=== PATIENT | female | born 1995 | race Caucasian/White ===

== ENCOUNTER 2022-05-16 14:45 | Inpatient (IN) ==
[2022-05-16] MEDS ORDERED: LIDOCAINE 1% LOCAL 20 ML VIAL INFIL PRN (16:22)
[2022-05-16] MEDS ORDERED: OXYTOCIN 30 UNITS/500 ML BAG IV PRN (16:22)
[2022-05-16] MEDS ORDERED: DINOPROSTONE 10 MG INSERT PV ONE (16:22)
[2022-05-16 16:59] LABS: Hematocrit (blood only) 39.9 % (37.0-47.0); Mean Corpuscular Hemoglobin 28.3 pg (25.0-34.0); Mean Corpuscular Hgb Conc 32.6 g/dL (32.0-36.0); Mean Corpuscular Volume 86.9 fL (80.0-100.0); Mean Platelet Volume 13.4 fL (9.4-12.4); Platelet Count 163 K/uL (130-400); RDW Coefficient of Variation 14.1 % (11.5-14.5); RDW Standard Deviation 43.9 fL (36.4-46.3); Red Blood Count 4.59 M/uL (4.20-5.40); White Blood Count 6.81 K/ul (4.8-10.8)
--- NOTE | 2022-05-16 20:08 | Obstetrical Progress Note ---
Date of Service May 16, 2022 Assessment & Plan (1) cardiac anomaly affecting , antepartum: Plan: 27 yo s/p IVF @ 39 +weeks s/p cardia anomaly- Perimembranous VSD- sen by MARLA NST done in office today showed ?decel Sent to L&D for induction On arrival NST is CAT1 Discussed induction with - Pt agrees VE: /-3 Cervidil placed Admission and Anticipated Discharge Date Admission Date: May 16, 2022 Results & Data ([facility]) Vital Signs (Past 12 Hours) Vital Signs Temp Pulse Resp BP 05/16/22 19:34 62 05/16/22 19:34 139/89 05/16/22 18:34 18 05/16/22 18:34 36.8 C 18 05/16/22 18:34 55 L 05/16/22 18:34 129/88 05/16/22 15:06 36.9 C 71 18 109/68 05/16/22 15:09 36.9 C 19
[2022-05-17] MEDS ORDERED: OXYTOCIN 30 UNITS/500 ML BAG IV PRN (09:22)
--- NOTE | 2022-05-17 09:25 | Labor Progress Brief Note ---
Date of Service May 17, 2022 Subjective Patient comfortable in bed at this time. She was able to eat breakfast and shower. No complaint Assessment & Plan (1) cardiac anomaly affecting , antepartum: Plan: Perimembranous VSD- kristin by MFM f/u with peds after delivery (2) 39 weeks gestation of : Plan: Cervidil had been removed, she is 2 cm dilated. Gio every 2 to 5 minutes, will start oxytocin for augmentation Epidural patient request Anticipate spontaneous vaginal delivery (3) resulting from in-vitro fertilization: Admission and Anticipated Discharge Date Admission Date: May 16, 2022 Physical Exam Genitourinary: heart tracing: Baseline 04/17/1936, moderate variability, positive accelerations, no decelerations, category 1 tracing Tocometer: Every 2 to 5 minutes Cervix: 2/50/-2 Results & Data ([facility]) Vital Signs (Past 12 Hours) Vital Signs Temp Pulse Resp BP 05/17/22 09:01 68 120/77 05/17/22 07:09 36.7 C 60 20 122/81 05/17/22 03:03 20 05/17/22 03:03 36.9 C 20 05/17/22 03:02 46 L 114/83 05/16/22 22:05 69 05/16/22 22:05 125/88
[2022-05-17] MEDS: LACTATED RINGER'S 1,000 ML IV PRN ×2 (09:52→14:26)
--- NOTE | 2022-05-17 13:43 | Labor Progress Brief Note ---
Date of Service May 17, 2022 Subjective Patient comfortable on birthing ball at this time. Is agreeable to rupture of membranes. Assessment & Plan (1) cardiac anomaly affecting , antepartum: Plan: Perimembranous VSD- kristin by MFM f/u with peds after delivery (2) 39 weeks gestation of : Plan: Continue oxytocin for augmentation Epidural patient request Anticipate spontaneous vaginal delivery (3) resulting from in-vitro fertilization: Admission and Anticipated Discharge Date Admission Date: May 16, 2022 Physical Exam Genitourinary: heart tracing: Baseline 130, moderate variability, positive accelerations, no decelerations, category 1 tracing Tocometer: Contractions every 3 to 4 minutes oxytocin at 16 milliunits/h Cervix 460/-1, AROM performed with large amount of clear fluid, no cord felt, no complications, IUPC was placed Results & Data ([facility]) Vital Signs (Past 12 Hours) Vital Signs Temp Pulse Resp BP 05/17/22 13:01 54 L 118/71 05/17/22 12:01 61 119/78 05/17/22 11:01 36.7 C 61 18 121/87 05/17/22 10:01 69 124/85 05/17/22 09:01 68 120/77 05/17/22 07:09 36.7 C 60 20 122/81 05/17/22 03:03 20 05/17/22 03:03 36.9 C 20 05/17/22 03:02 46 L 114/83
[2022-05-17] MEDS ORDERED: SODIUM CHLORIDE 0.9% PF INJ 10 ML VIAL ONE (14:12)
[2022-05-17] MEDS ORDERED: ePHEDrine sulfate 50 MG/ML AMP ONE (14:12)
[2022-05-17] MEDS ORDERED: LIDOCAINE 2%/EPINEPHRINE 1:200,000 20 ML PF ONE (14:12)
[2022-05-17] MEDS ORDERED: fentaNYL citrate PF 100 MCG/2 ML VIAL ONE ×2 (14:12→19:14)
[2022-05-17] MEDS ORDERED: BUPIVACAINE 0.25% PF 30 ML VIAL ONE (14:12)
[2022-05-17] MEDS ORDERED: fentaNYL 2MCG/ML ROPIVACAINE 1.25MG/ML 100 ML BAG EPI ONE (14:13)
[2022-05-17] MEDS ORDERED: ePHEDrine sulfate 50 MG/ML AMP IV PRN (14:18)
[2022-05-17] MEDS ORDERED: NALOXONE HCL 0.4 MG/1 ML VIAL/CARP IV PRN (14:18)
[2022-05-17] MEDS ORDERED: fentaNYL 2MCG/ML ROPIVACAINE 1.25MG/ML 100 ML BAG EPI PRN (14:18)
[2022-05-17] MEDS ORDERED: NALBUPHINE HCL INJ 10 MG/ML AMP IV PRN (14:18)
[2022-05-17] MEDS ORDERED: ONDANSETRON INJ 2 MG/ML 2 ML VIAL IV PRN (14:18)
[2022-05-17] MEDS ORDERED: NALOXONE HCL 1 MG in SODIUM CHLORIDE 0.9% 1000ML 1,000 ML IV PRN (14:18)
[2022-05-17] MEDS ORDERED: diphenhydrAMINE 50 MG/ML VIAL IV PRN (14:18)
--- NOTE | 2022-05-17 14:23 | Anesthesiology Consultation ---
Date of Service May 17, 2022 Assessment & Plan Chart Review Chart Review: Acceptable Risk for Labor Epidural Consults Requested none ASA ASA2 Proposed Anesthesia Anesthesia Type: Labor Epidural Risk / Benefits Reviewed With: PT / POA / Parent / Guardian, Accepts Plan and Informed Consent Obtained History Height/Weight Height: 5 ft 4 in Weight: 78.744 kg Allergies Allergy/AdvReac Type Severity Reaction Status Date / Time No Known Drug Allergies Allergy Verified 04/01/19 13:51 Medications Home Medications Medication Instructions Recorded Confirmed Last Taken [id number] fum-folic [id number] 1 tab PO DAILY 12/12/18 05/17/22 05/16/22 08:00 [Daily ] Active Medications Generic Name Dose Route Start Last Admin Trade Name Freq PRN Reason Stop Dose Admin Lactated Ringer's 1,000 mls @ 125 mls/hr 05/16/22 16:22 05/17/22 14:04 Lr IV 05/18/22 16:21 999 mls/hr .Q8H PRN Infusion L&D Protocol Protocol Oxytocin 30 units in 500 mls @ 14 mls/hr 05/17/22 09:22 05/17/22 13:00 Pitocin IV 05/19/22 09:21 0.84 units/hr .Q24H PRN 14 mls/hr Labor Induction/Augmentation Titration Protocol 0.84 UNITS/HR Past Medical History Medical History History of varicella vaccination Exercise / Class Metabolic Activity II 4-5 Yardwork/Stairs/Walk up hill Past Family History Family History Mother , 04/2011 at age 49 Breast cancer, Onset Age: 42 negative BRCA genes Aunt Breast cancer maternal great aunt Grandmother (Maternal) Breast cancer maternal great grandmother Denies family history of Ovarian cancer Prostate cancer Myocardial infarction Colorectal cancer Past Surgical History Surgical History H/O dilation and curettage History of hysterosalpingogram History of hysteroscopy [place] teeth removed Past Anesthesia History No Hx of Anesthesia Complications and No Family Hx of Anesthesia Complications History of PONV No Hx of PONV and No Hx of Motion Sickness Social History Smoking Status: Never smoker Hx Alcohol Use: Yes Hx Substance Use: No Physical Exam Vital Signs Last Vital Signs Temp 98.1 F 05/17/22 11:01 Pulse 63 05/17/22 14:17 Resp 18 05/17/22 11:01 BP 118/71 05/17/22 13:01 Pulse Ox 95 05/17/22 14:17 ENMT Mouth: no dentition abnormality Thyromental Distance: > or= 3.5 Finger Breadths Mallampati Class: II Neck normal visual inspection Respiratory normal respiratory effort Auscultation: lungs clear to auscultation bilaterally Cardiovascular Rate/Rhythm: regular rate and regular rhythm Testing Laboratory Results 05/16/22 16:33
--- NOTE | 2022-05-17 16:48 | Labor Progress Brief Note ---
Date of Service May 17, 2022 Subjective Patient comfortable on epidural at this time, notes increasing pelvic pressure Assessment & Plan (1) cardiac anomaly affecting , antepartum: Plan: Perimembranous VSD- seen by MFM f/u with peds after delivery (2) 39 weeks gestation of : Plan: Start pushing with patient Anticipate spontaneous vaginal delivery (3) resulting from in-vitro fertilization: Admission and Anticipated Discharge Date Admission Date: May 16, 2022 Physical Exam Genitourinary: heart tracing: Baseline 20, moderate variability, positive accelerations, early decelerations Tocometer: Contractions every 2 minutes, oxytocin at 14 milliunits/h Cervix: 10/100/+2 station Results & Data ([facility]) Vital Signs (Past 12 Hours) Vital Signs Temp Pulse Resp BP Pulse Ox 05/17/22 16:42 65 100 05/17/22 16:41 68 89 L 05/17/22 16:37 62 91 05/17/22 16:32 94 05/17/22 16:32 53 L 05/17/22 16:32 52 L 118/69 05/17/22 16:27 51 L 94 05/17/22 16:26 63 89 L 05/17/22 16:22 60 94 05/17/22 16:18 57 L 132/66 05/17/22 16:17 63 94 05/17/22 16:15 71 90 05/17/22 16:12 54 L 95 05/17/22 16:07 64 94 05/17/22 16:02 54 L 95 05/17/22 16:03 52 L 133/83 05/17/22 15:57 59 L 93 05/17/22 15:52 51 L 95 05/17/22 15:48 52 L 137/82 05/17/22 15:47 60 96 05/17/22 15:42 53 L 95 05/17/22 15:37 59 L 98 05/17/22 15:32 53 L 137/83 95 05/17/22 15:27 60 97 05/17/22 15:22 62 95 05/17/22 15:17 62 119/78 93 05/17/22 15:12 60 96 05/17/22 15:07 59 L 96 05/17/22 15:02 57 L 95 05/17/22 14:58 58 L 124/85 05/17/22 14:57 60 96 05/17/22 14:54 58 L 122/81 05/17/22 14:52 62 95 05/17/22 14:49 63 126/80 05/17/22 14:47 90 96 05/17/22 14:42 97 05/17/22 14:42 66 05/17/22 14:42 62 127/81 05/17/22 14:40 65 134/76 05/17/22 14:38 68 138/85 05/17/22 14:37 63 95 05/17/22 14:36 68 133/76 05/17/22 14:34 58 L 128/73 05/17/22 14:32 72 135/95 96 05/17/22 14:27 68 96 05/17/22 14:22 75 92 05/17/22 14:17 63 95 05/17/22 14:16 66 85 L 05/17/22 14:12 65 95 05/17/22 14:08 69 92 05/17/22 14:07 63 96 05/17/22 13:01 54 L 118/71 05/17/22 12:01 61 119/78 05/17/22 11:01 36.7 C 61 18 121/87 05/17/22 10:01 69 124/85 05/17/22 09:01 68 120/77 05/17/22 07:09 36.7 C 60 20 122/81
[2022-05-17] MEDS ORDERED: SODIUM CHLORIDE 0.9% 250 ML IV PRN (18:51)
[2022-05-17] MEDS ORDERED: ceFAZolin 2000MG 2,000 MG/15 ML SYR IV STA (18:53)
[2022-05-17] MEDS ORDERED: SUCCINYLCHOLINE CHLORIDE 20 MG/ML 10 ML VIAL IV ONE (19:14)
[2022-05-17] MEDS ORDERED: LIDOCAINE 2% MPF LOCAL 5 ML VIAL INFIL ONE (19:14)
[2022-05-17] MEDS ORDERED: PROPOFOL IV EMULSION 10 MG/ML 20 ML VIAL IV ONE (19:14)
[2022-05-17] MEDS ORDERED: OXYTOCIN 10 UNITS/ML 10ML VIAL ONE ×2 (19:38→20:50)
[2022-05-17] MEDS ORDERED: ROCURONIUM BROMIDE 10 MG/ML 5 ML VIAL IV ONE (20:13)
[2022-05-17] MEDS ORDERED: ceFAZolin 330 MG/ML 1 GM VIAL ONE (20:19)
[2022-05-17 20:24] LABS: Hemoglobin 10.8 g/dl (12.0-16.0); Mean Corpuscular Hemoglobin 28.1 pg (25.0-34.0); Mean Corpuscular Hgb Conc 32.7 g/dL (32.0-36.0); Mean Corpuscular Volume 85.9 fL (80.0-100.0); Mean Platelet Volume 13.3 fL (9.4-12.4); Platelet Count 150 K/uL (130-400); RDW Standard Deviation 43.7 fL (36.4-46.3); Red Blood Count 3.84 M/uL (4.20-5.40); White Blood Count 22.87 K/ul (4.8-10.8)
[2022-05-17] MEDS ORDERED: PHENYLEPHRINE HCL 10 MG/ML VIAL ONE (20:35)
[2022-05-17] MEDS ORDERED: SUGAMMADEX SODIUM 200 MG/2 ML VIAL IV ONE (20:40)
[2022-05-17 20:45] LABS: Basophils # (auto) 0.04 K/uL (0-0.2); Basophils % (auto) 0.2 %; Eosinophils # (auto) 0.01 K/uL (0-0.50); Immature Granulocytes # (auto) 0.09 K/uL (0.01-0.20); Immature Granulocytes % (auto) 0.4 %; Lymphocytes # (auto) 1.35 K/uL (1.2-3.4); Lymphocytes % (auto) 5.9 %; Monocytes # (auto) 1.27 K/uL (0.11-0.59); Monocytes % (auto) 5.6 %; Neutrophils # (auto) 20.11 K/uL (1.40-6.50); Neutrophils % (auto) 87.9 %
[2022-05-17 20:49] LABS: INR 0.9 (0.9-1.1); Partial Thromboplastin Ratio 0.9; Partial Thromboplastin Time 24.8 Seconds (21.0-31.0); Prothrombin Time 9.8 Seconds (9.0-12.0)
[2022-05-17] MEDS ORDERED: TRANEXAMIC ACID / 0.7% NACL 1,000 MG/100 ML BAG IV STA (20:56)
[2022-05-17] MEDS ORDERED: CARBOPROST TROMETHAMINE 250 MCG/ML AMPUL IM ONE (20:59)
[2022-05-17] MEDS ORDERED: STAT IV Infusion **Titration per Protocol STA (21:03)
[2022-05-17] MEDS ORDERED: PHENYLEPHRINE HCL 25 MG/250 ML NSS IV ONE (21:06)
[2022-05-17] MEDS ORDERED: ceFAZolin 2000MG 2,000 MG/15 ML SYR IV ONE (21:06)
[2022-05-17] MEDS ORDERED: oxyCODONE/ACETAMINOPHEN 5mg/325mg TAB PO PRN (21:08)
[2022-05-17] MEDS ORDERED: ACETAMINOPHEN 325 MG TAB PO PRN (21:08)
[2022-05-17] MEDS ORDERED: METHYLERGONOVINE MALEATE 0.2 MG/ML AMP IM STA (21:08)
[2022-05-17] MEDS ORDERED: DIPHTHERIA/TETANUS/PERTUSSIS 0.5mL SYR/VIAL (Age 7+yrs) IM ONE (21:08)
[2022-05-17] MEDS ORDERED: BENZOCAINE 20% AER SPR 82.5 GM CAN EXT PRN (21:08)
[2022-05-17] MEDS ORDERED: bisacodyL 10 MG SUPP PR PRN (21:08)
[2022-05-17] MEDS ORDERED: IBUPROFEN 600 MG TAB PO PRN (21:08)
[2022-05-17] MEDS ORDERED: HYDROCORTISONE ACETATE 25 MG SUPP PR PRN (21:08)
[2022-05-17] MEDS: PHENYLEPHRINE/NSS 25 MG/250 ML BAG IV SCH (21:10)
--- NOTE | 2022-05-17 21:11 | Delivery Summary ---
Vaginal Delivery Summary Date of Service May 17, 2022 Vaginal Delivery Summary Delivery Note Delivery Summary: Patient was placed in dorsal lithotomy position. She was prepped and draped in the usual sterile fashion. Upon maternal pushing, the head was obstructed with the thick band of tissue. Pushing with modified reckons maneuver did not alleviate this band, and a right medial lateral episiotomy was cut. The head was delivered atraumatically followed by the anterior shoulders, posterior shoulders and the remainder of the infant's body. The was immediate placed on mother's abdomen, dried and stimulated. Delayed cord clamping for 60 seconds was performed. The infant's mouth and nose was bulb suctioned by nursing staff. A female was delivered at 1832 with Apgars 8/9. And weight of 3149 g Cord blood gases were not obtained. During delivery of the placenta, noted partial cord avulsion, and manual removal of the remainder of the placenta was attempted. Noted retained placental tissue and membranes. Thirty units of Pitocin were added to the IV fluid and allowed to run freely. Uterine massage was performed and noted ongoing uterine atony and at this time a hemorrhage was called. Patient received 1 dose of Methergine, she was given a second IV by nursing staff and the hemorrhage cart was brought into the room. She also received a dose of Hemabate, 1 g of TXA. Due to the ongoing uterine atony and manual evacuation of the uterus at the bedside, she was given 2 g of Ancef. Blood pressure at this time was 70s over 40s. Blood bank was called for availability of 2 units of blood. The decision was made with concerns of retained products and possible placental accreta that patient should be brought to the OR for dilation and curettage and possible laparotomy and possible hysterectomy. She was counseled at the bedside appropriately with her significant other. In the meantime the right medial lateral episiotomy was repaired with 3-0 Vicryl in a running fashion. Good hemostasis was noted at the site of the episiotomy. Needle and sponge counts were correct. Patient was unstable at this time and transferred to the OR for further assessment and care. Infant was stable and moved to the nursery for further care as mother was moving to the OR.
--- NOTE | 2022-05-17 21:12 | Operative Report ---
Post Operative Report Pre & Post Diagnosis Operation Date: 05/17/22 17:05 Pre-Op Diagnosis: 29-year-old G1 now P1 status post spontaneous vaginal delivery hemorrhage Retained products of conception Post-Op Diagnosis: hemorrhage 3 L Hypotension I identified the patient and participated in the time-out.: Yes Procedure Operation Date: 05/17/22 17:05 Actual Procedures p Dilation and Curettage of Uterus with Insertion of Bakri Balloon under ultrasound guidance (Not Applicable) - Chelly Ochoa MD, PhD Surgeon Chelly Ochoa MD, PhD Transition Assistant Dr. Cliff HOUSE, certified surgical first assistant Estimated Blood Loss 1,500 Findings See Below Bulky, uterus, with retained products of conception. Dilation and curettage performed under ultrasound guidance. No findings suggestive of placenta accreta as there was no invasion of products into myometrium. External genitalia normal Cervix: Dilated, edematous, no cervical lacerations noted Right medial lateral episiotomy well approximated, hemostatic Fluids See anesthesia record Specimens Products of conception Drains Thomas catheter, Bakri balloon with Thomas bag attached Anesthesia Type General Complications hemorrhage 3 L Disposition Accompanied Patient To Recovery: Yes Indications Ongoing hemorrhage, retained products of conception, concern for possible placental accreta Description of Procedure Description of Operation: The patient was identified and the procedure was verified. She was taken to the OR where general anesthesia was given. The patient was placed in the dorsal lithotomy position, prepped and draped in the usual fashion. Bladder was drained with a Thomas catheter weighted speculum were introduced into the vagina, and the anterior cervical lip was grasped with ring forcep. biodiesel process control technician placed ultrasound probe on the abdomen, showing the retained products of conception within the uterus. Banjo curette was then used to remove as much products of conception, but there still remaining a large amount of tissue afterwards. I still was able to remove the tissue with multiple sweeps of the uterus. Patient continued to have ongoing bleeding, coags and fibrinogen were obtained from anesthesia. She was also given a second gram of TXA. 2 units of packed red blood cells were ordered at this time. As there was a concern for retained products and I felt a possible placental accreta, Dr. Coronado were called to the OR to assist. Further curettage was performed by Dr. Coronado and myself, including suction curettage with a 12 curved curette. Noted removal of large amount of tissue by this time, with minimal tissue seen on transabdominal ultrasound. Normal myometrium was seen with no invasion of the endometrium into the myometrium. Good endometrial canal was noted. Bakri balloon was then removed from its packaging, placed within the uterus under ultrasound guidance. A total of 400 milliunits was placed within the Richard balloon. The Bakri was then attached to Thomas bag to monitor output. Tissue specimen was then sent to pathology The ring forcep was then removed and there was noted good hemostasis. At that point, the procedure was ended. The instrument and sponge count were correct, and patient tolerated the procedure well and was sent to the recovery room in stable condition. ICU team was updated, as patient will be transferred to the ICU for further assessment and care in the postoperative state, as she needed pressor support during the time of surgery. Total EBL from vaginal delivery and procedures 3 L, 1.5 L in the delivery room and 1.5 L in the OR. Patient's significant other and family members were updated after surgery. Attestation: My Transition Assistant was necessary throughout the procedure(s) for tissue retraction and curettage I understand that section 1842 (b)(7)(D) of the Social Security Act generally prohibits Medicare physician fee schedule payment for the services of [id number] in teaching hospitals when qualified residents are available to furnish such services. I certify that the services for which payment is claimed were medically necessary, and that no qualified resident was available to perform the services. I further understand that these services are subject to post-payment review by the Medicare carrier. I attest to the content of the Intraoperative Record and any orders documented therein. Any exceptions are noted below.
--- NOTE | 2022-05-17 21:20 | Critical Care Consultation ---
Date of Consultation May 17, 2022 Assessment & Plan (1) hemorrhage: (2) Hemorrhagic shock: (3) Leukocytosis: Plan Reason Critically Ill: S/P D&C for retained products following . Patient reportedly with 3 Liters of blood loss. Required vasopressor support through OR case. To the ICU for resuscitation. 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.21- unsure of baseline - Continue with blood transfusion for goal HGB >10 with active bleeding - Transfuse 1:1:1 or 2:1:1 ratio depending on amount of product/transfusion patient need - Maintain Normothermia, ABG evaluate acidosis - Wean of vasopressor support as able once adequate volume has been repleted - Pitocin infusion finishing - Continue Methergine - defer to OBGYN for dosing and stopping Respiratory - NO acute needs - Extubated with Spo2 100- follow with resuscitation requirements GI - No acute needs - Bowel regimine in place - Advance diet as tolerated- clears for tonight RENAL/LYTES - MAICOL, Metabolic Acidosis - MAICOL with BUILDING CLEANING SUPERVISOR 1.21 unsure of patient baseline - Follow with resuscitation - UO > 30ml per hour as goal - Replete Calcium with blood transfusion - Replete other electrolytes per ICU electrolyte protocol - NON- GAP Metabolic Acidosis-- continue supportive care PH 7.33, HCO3 17- trend lactate and CBC - S/P D&C with Bakarin Baloon insertion - monitor blood loss - defer to OBGYN for management ENDO - No acute needs - Goal BG <180 mg/DL HEME - Acute blood loss anemia/hemorrhagic shock - As above - Awaiting fibrinogen - INR 0.9, Platlet count stable ID - Leukocytosis - likley secondary to acute stress- discussed with OBGYN no further abx needs from their standpoint - follow clinical course LINES/IV ACCESS - PIV, Thomas, Richard Balloon Continue use of theese lines DVT PROPHYLAXIS - Hold chemoprophylaxis following acute bleeding resulting in shock- SCDS for now DISPO: ICU until pressor requirement is off as well as reverse in lactate and organ dysfunction. I have personally spent 50 minutes of critical care time in the direct management of this patient. This is a life/limb threatening event. This includes time spent evaluating patient, direct bedside care, chart review, placing orders, interpretation of diagnostic studies, discussion with consultants, patient, and family members, as well as other required patient management activities. This time is exclusive of all separately billable procedures, and separate from and in addition to any other critical care service time. Thank you for allowing us to participate in the care of this patient. Please refer to my attending physician's documentation for any further recommendations. History of Present Illness Reason for Consultation: post hemorrhagic shock Requesting Physician: Chelly FOSTER MD Attending Physician: Kael Zarco MD History of Present Illness 27 YOF s/p spontaneous vaginal delivery today (05/17/22) at 1648 with an epidural catheter in place. Patient was taken back to the operating room this evening for reports of retained placenta and hemorrhage reported as 3 Liters. Patient is s/p D&C with insertion of Richard Balloon. She reportedly was administered TXA x2 doses, has Pitocin infusion finishing as well as Methegrine received and QID. ICU was consulted following recovery in the PACU and extubation for continued resuscitation and hypotension. The patient has not received any blood products at this time. She came to the ICU awake and able to converse. She was noted to be tachycardic to 130s on arrival and hypotensive to 70s/40s. Blood products were immediately started as well as initiation of NORSYNEPHRINE infusion. She has minimal urine output as well as minimal output from her Richard Balloon. Labs reviewed reveal HGB of 10.6 that is down from 13.2 from earlier. WBC notable for 22, Platelet count 150. INR at 0.9. BMP, iCA, Fibrinogen, and lactate sent on arrival. Patient reports no previous medical history, does not smoke, and does not drink ETOH. Overall patient transfer to ICU for hemorrhagic shock- elevated lactate on admission and hypotensive. Will replete volume status with PRBCs and maintain a 1:1:1 transfusion if MTP needed but for now malik start with 2:1:1. We do not have TEG here so will follow CBC, Fibrinogen and INR. Patient is O+ and we do have product available. Will check CBC post transfusion to ensure no further declination in HGB. Arterial line if remains hypotensive and requiring more blood products. Patient is FULL CODE Allergies Allergy/AdvReac Type Severity Reaction Status Date / Time No Known Drug Allergies Allergy Verified 04/01/19 13:51 Home Medications Medication Instructions Recorded Confirmed Type [id number] fum-folic ac-om3 1 tab PO DAILY 12/12/18 05/17/22 History [Daily ] Patient History Medical History History of varicella vaccination Surgical History H/O dilation and curettage History of hysterosalpingogram History of hysteroscopy [place] teeth removed Family History Mother , 04/2011 at age 49 Breast cancer, Onset Age: 42 negative BRCA genes Aunt Breast cancer maternal great aunt Grandmother (Maternal) Breast cancer maternal great grandmother Denies family history of Ovarian cancer Prostate cancer Myocardial infarction Colorectal cancer Social History Smoking Status: Never smoker Second Hand Exposure: No; Hx Alcohol Use: Yes Hx Substance Use: No Preferred Language: Citizen Of [place] Communication Ability: Effective Imagery Analyst Required: No Beliefs That Will Affect Care: None marital status: Current Living Situation: Spouse Other Information That Helps Us Care for You: No Feels Safe at Home: Yes Safety Concerns: Feels Safe At This Time Dental Care, Regularly: Yes Physical Activity Frequency: 3-4 Times per Week Assistive Devices: None Review of Systems Review of Systems: REVIEW OF SYSTEMS: Constitutional: + cold., shivering Eyes: No diplopia, no worsening or blurred vision ENT: normal hearing, no trouble swallowing Respiratory: No cough, sputum, dyspnea at rest or on exertion Cardiovascular: No chest pain, tightness or palpitations Abdomen: (+) pain, no nausea, vomiting, diarrhea or constipation Musculoskeletal: No joint pain, calf pain, swelling Neurologic: No weakness, numbness/tingling, or balance problems Skin: No rash or itch Physical Exam Physical Exam: PHYSICAL EXAM: General: awake, alert, Head: Normocephalic, atraumatic ENT: PERRL, EOMI, no pharyngeal exudate, mucous membranes dry Neuro: AAO x 3, speech clear and appropriate, strength intact bilaterally 5/5, sensation intact and equal all extremities and dermatones, no pronator drift Chest: equal rise and fall of the chest, no accessory muscle use, Clear to auscultation, on room air, Cardiac: Regular rate and rhythm, telemetry reviewed- sinus tachycardia, skin warm dry, cap refill <3 seconds, peripheral pusles +2 no JVD, no murmur, no JVD, no edema GI: NABS x 4 quadrants, soft, nontender to palpation, no rebound, guarding or tenderness : Spontaneously voiding, no pain, no CVA tenderness, Extremities: Normal inspection, no peripheral edema or erythema, calfs nontender to palpation Psych: Normal mood and affect Skin: no rash or erythema Results & Data Results & Data ([facility]) Vital Signs (Past 12 Hours) Vital Signs Temp Pulse Resp BP Pulse Ox 05/17/22 19:07 94 05/17/22 19:07 134 H 05/17/22 19:07 131 H 122/81 05/17/22 19:04 111 H 114/80 05/17/22 19:02 108 H 95 05/17/22 19:01 98 H 74/46 L 05/17/22 18:58 117 H 05/17/22 18:58 113 H 66/42 L 86 L 05/17/22 18:57 113 H 84/53 L 91 05/17/22 18:55 116 H 76/45 L 05/17/22 18:52 110 H 87/54 L 93 05/17/22 18:51 110 H 89 L 05/17/22 18:49 111 H 71/47 L 05/17/22 18:47 151 H 95 05/17/22 18:48 76 76/51 L 05/17/22 18:42 113 H 92 05/17/22 18:37 90 94 05/17/22 18:32 81 121/67 91 05/17/22 18:27 70 93 05/17/22 18:25 81 89 L 05/17/22 18:22 69 94 05/17/22 18:17 73 94 05/17/22 18:18 57 L 133/68 05/17/22 18:14 90 87 L 05/17/22 18:12 82 95 03/02/23 18:09 76 88 L 05/17/22 18:07 75 95 05/17/22 18:02 67 131/70 95 05/17/22 17:57 105 H 95 05/17/22 17:52 57 L 92 05/17/22 17:49 58 L 118/75 05/17/22 17:47 51 L 94 05/17/22 17:42 50 L 94 05/17/22 17:37 54 L 95 05/17/22 17:32 58 L 125/84 95 05/17/22 17:27 53 L 95 05/17/22 17:22 56 L 95 05/17/22 17:18 52 L 125/70 05/17/22 17:17 50 L 94 05/17/22 17:12 54 L 94 05/17/22 17:07 56 L 96 05/17/22 17:03 57 L 122/78 05/17/22 17:02 55 L 94 05/17/22 16:57 52 L 94 05/17/22 16:52 59 L 93 05/17/22 16:48 58 L 152/83 H 05/17/22 16:47 63 93 05/17/22 16:42 65 100 05/17/22 16:41 68 89 L 05/17/22 16:37 62 91 05/17/22 16:32 94 05/17/22 16:32 53 L 05/17/22 16:32 52 L 118/69 05/17/22 16:27 51 L 94 05/17/22 16:26 63 89 L 05/17/22 16:22 60 94 05/17/22 16:18 57 L 132/66 05/17/22 16:17 63 94 05/17/22 16:15 71 90 05/17/22 16:12 54 L 95 05/17/22 16:07 64 94 05/17/22 16:02 54 L 95 05/17/22 16:03 52 L 133/83 05/17/22 15:57 59 L 93 05/17/22 15:52 51 L 95 05/17/22 15:48 52 L 137/82 05/17/22 15:47 60 96 05/17/22 15:42 53 L 95 05/17/22 15:37 59 L 98 05/17/22 15:32 53 L 137/83 95 05/17/22 15:27 60 97 05/17/22 15:22 62 95 05/17/22 15:17 62 119/78 93 05/17/22 15:12 60 96 05/17/22 15:07 59 L 96 05/17/22 15:02 57 L 95 05/17/22 14:58 58 L 124/85 05/17/22 14:57 60 96 05/17/22 14:54 58 L 122/81 05/17/22 14:52 62 95 05/17/22 14:49 63 126/80 05/17/22 14:47 90 96 05/17/22 14:42 97 05/17/22 14:42 66 05/17/22 14:42 62 127/81 05/17/22 14:40 65 134/76 05/17/22 14:38 68 138/85 05/17/22 14:37 63 95 05/17/22 14:36 68 133/76 05/17/22 14:34 58 L 128/73 05/17/22 14:32 72 135/95 96 05/17/22 14:27 68 96 05/17/22 14:22 75 92 05/17/22 14:17 63 95 05/17/22 14:16 66 85 L 05/17/22 14:12 65 95 05/17/22 14:08 69 92 05/17/22 14:07 63 96 05/17/22 13:01 54 L 118/71 05/17/22 12:01 61 119/78 05/17/22 11:01 36.7 C 61 18 121/87 05/17/22 10:01 69 124/85 Laboratory Results Abnormal lab results 05/16/22 05/17/22 05/17/22 Range/Units 16:33 19:40 21:10 WBC 22.87 H (4.8-10.8) K/ul RBC 3.84 L (4.20-5.40) M/uL Hgb 10.8 L (12.0-16.0) g/dl Hct 33.0 L (37.0-47.0) % MPV 13.3 H (9.4-12.4) fL Neut # (Auto) 20.11 H (1.40-6.50) K/uL Parke # (Auto) 1.27 H (0.11-0.59) K/uL Lactate (0.4-2.0) mmol/L Ionized Calcium 1.07 L (1.12-1.32) mmol/L Crossmatch See Detail 05/17/22 Range/Units 21:16 WBC (4.8-10.8) K/ul RBC (4.20-5.40) M/uL Hgb (12.0-16.0) g/dl Hct (37.0-47.0) % MPV (9.4-12.4) fL Neut # (Auto) (1.40-6.50) K/uL Parke # (Auto) (0.11-0.59) K/uL Lactate 5.3 H* (0.4-2.0) mmol/L Ionized Calcium (1.12-1.32) mmol/L Crossmatch Medications Administered Home Medications [id number] fum-folic ac-om3 [Daily ] 1 tab PO DAILY 12/12/18 [History Confirmed 05/17/22] Active Medications Acetaminophen (Acetaminophen 325 Mg Tab) 650 mg PO Q6H PRN PRN Reason: Pain/TAVERAS/Fever Stop: 06/16/22 21:07 Benzocaine (Benzocaine 20% Aer Spr 82.5 Gm Can) 1 appln EXT PRN PRN PRN Reason: Perineal Discomfort Stop: 06/16/22 21:07 Bisacodyl (Bisacodyl 5 Mg Tabec) 5 mg PO 1999 [facility] Stop: 05/18/22 20:01 Bisacodyl (Bisacodyl 10 Mg Supp) 10 mg [place] DAILY PRN PRN Reason: No BM on 2nd post- day Stop: 06/16/22 21:07 Diphenhydramine HCl (Diphenhydramine 50 Mg/Ml Vial) 25 mg IV Q6H PRN PRN Reason: Itching Stop: 05/18/22 14:17 Docusate Sodium (Docusate Sodium 100 Mg Cap) 100 mg PO DAILY@08,21 [facility] Stop: 06/17/22 07:59 Hydrocortisone (Hydrocortisone Acetate 25 Mg Supp) 25 mg [place] BID PRN PRN Reason: Hemorrhoidal Inflammation Stop: 06/16/22 21:07 Lactated Ringer's (Lr) 1,000 mls @ 125 mls/hr IV .Q8H PRN; Protocol PRN Reason: L&D Protocol Stop: 05/18/22 16:21 Last Infusion: 05/17/22 18:45 Dose: 999 mls/hr Phenylephrine HCl (Phenylephrine/Nss) 25 mg in 250 mls @ 23.623 mls/hr IV .[id number] [facility]; Protocol Stop: 06/16/22 21:03 Calcium Gluconate 2,000 mg/ (Dextrose) 70 mls @ 240 mls/hr IV 2200 ONE Stop: 05/17/22 22:17 Ibuprofen (Ibuprofen 600 Mg Tab) 600 mg PO Q4H PRN PRN Reason: Pain/TAVERAS/Cramping/Fever Stop: 06/16/22 21:07 Methylergonovine Maleate (Methylergonovine Maleate 0.2 Mg Tab) 0.2 mg PO QID [facility] Stop: 06/17/22 00:00 Ondansetron HCl (Ondansetron Inj 2 Mg/Ml 2 Ml Vial) 4 mg IV Q6H PRN PRN Reason: Nausea &/or Vomiting Stop: 05/18/22 14:17 Oxycodone/Acetaminophen (Oxycodone/Acetaminophen 5mg/325mg Tab) 1 tab PO Q4H PRN PRN Reason: Pain not relieved by... Stop: 05/31/22 21:07 Prenat Multivit/Forest And Conservation Worker/Iron/Folic Ac ( Vitamin 1 Tab) 1 tab PO DAILY [facility] Stop: 06/17/22 08:59 Coding Level of Care Code 01252 CRITICAL CARE 1ST 30-74M Diagnoses hemorrhage O72.1 Hemorrhagic shock R57.8 Leukocytosis D72.829
--- NOTE | 2022-05-17 21:40 | Anesthesiology Progress Note ---
Date of Service May 17, 2022 Anesthesia Post Procedure Vital Signs Vital Signs: Temp Pulse Resp BP Pulse Ox 05/17/22 19:07 94 05/17/22 19:07 134 H 05/17/22 19:07 131 H 122/81 05/17/22 19:04 111 H 114/80 05/17/22 19:02 108 H 95 05/17/22 19:01 98 H 74/46 L 05/17/22 18:58 117 H 05/17/22 18:58 113 H 66/42 L 86 L 05/17/22 18:57 113 H 84/53 L 91 05/17/22 18:55 116 H 76/45 L 05/17/22 18:52 110 H 87/54 L 93 05/17/22 18:51 110 H 89 L 05/17/22 18:49 111 H 71/47 L 05/17/22 18:47 151 H 95 05/17/22 18:48 76 76/51 L 05/17/22 18:42 113 H 92 05/17/22 18:37 90 94 05/17/22 18:32 81 121/67 91 05/17/22 18:27 70 93 05/17/22 18:25 81 89 L 05/17/22 18:22 69 94 05/17/22 18:17 73 94 05/17/22 18:18 57 L 133/68 05/17/22 18:14 90 87 L 05/17/22 18:12 82 95 05/17/22 18:09 76 88 L 05/17/22 18:07 75 95 05/17/22 18:02 67 20 131/70 95 05/17/22 17:57 105 H 95 05/17/22 17:52 57 L 92 05/17/22 17:49 58 L 118/75 05/17/22 17:47 51 L 94 05/17/22 17:42 50 L 94 05/17/22 17:37 54 L 95 05/17/22 17:32 58 L 20 125/84 95 05/17/22 17:27 53 L 95 05/17/22 17:22 56 L 95 05/17/22 17:18 52 L 125/70 05/17/22 17:17 50 L 94 05/17/22 17:12 54 L 94 05/17/22 16:30 20 05/17/22 17:07 56 L 96 05/17/22 17:03 98.1 F 57 L 20 122/78 05/17/22 17:02 55 L 94 05/17/22 16:57 52 L 94 05/17/22 16:52 59 L 93 05/17/22 16:48 58 L 152/83 H 05/17/22 16:47 63 93 05/17/22 16:42 65 100 05/17/22 16:41 68 89 L 05/17/22 16:37 62 91 05/17/22 16:32 94 05/17/22 16:32 53 L 05/17/22 16:32 52 L 118/69 05/17/22 16:27 51 L 94 05/17/22 16:26 63 89 L 05/17/22 16:22 60 94 05/17/22 16:18 57 L 132/66 05/17/22 16:17 63 94 05/17/22 16:15 71 90 05/17/22 16:12 54 L 95 05/17/22 16:07 64 94 05/17/22 16:02 54 L 20 95 05/17/22 16:03 52 L 133/83 05/17/22 15:57 59 L 93 05/17/22 15:52 51 L 95 05/17/22 15:48 52 L 137/82 05/17/22 15:47 60 96 05/17/22 15:42 53 L 95 05/17/22 15:37 59 L 98 05/17/22 15:32 53 L 137/83 95 05/17/22 15:27 60 97 05/17/22 15:22 62 95 05/17/22 15:17 62 119/78 93 05/17/22 15:12 60 96 05/17/22 15:07 59 L 96 05/17/22 15:02 57 L 20 95 05/17/22 14:58 58 L 124/85 05/17/22 14:57 60 96 05/17/22 14:54 58 L 122/81 05/17/22 14:52 62 95 05/17/22 14:49 63 126/80 05/17/22 14:47 90 96 05/17/22 14:42 97 05/17/22 14:42 66 05/17/22 14:42 62 127/81 05/17/22 14:40 65 134/76 05/17/22 14:38 68 138/85 05/17/22 14:37 63 95 05/17/22 14:36 68 133/76 05/17/22 14:34 58 L 128/73 05/17/22 14:32 72 20 135/95 96 05/17/22 14:27 68 96 05/17/22 14:22 75 92 05/17/22 14:17 63 95 05/17/22 14:16 66 85 L 05/17/22 14:12 65 95 05/17/22 14:08 69 92 05/17/22 14:07 63 20 96 05/17/22 13:01 98.2 F 54 L 20 118/71 05/17/22 12:01 61 119/78 05/17/22 11:01 98.1 F 61 18 121/87 05/17/22 10:01 69 124/85 05/17/22 09:01 68 120/77 05/17/22 07:09 98.1 F 60 20 122/81 05/17/22 03:03 20 05/17/22 03:03 98.4 F 20 05/17/22 03:02 46 L 114/83 05/16/22 22:05 69 05/16/22 22:05 125/88 Pain Intensity Bilateral Anterior Abdomen: Pain Intensity: 0 Transfer of Care Handoff Completed per policy Notes Mental Status: alert / awake / arousable and participated in evaluation Patient Amnestic to Procedure: Yes Nausea / Vomiting: adequately controlled Pain: adequately controlled Airway Patency, RR, SpO2: stable & adequate BP & HR: stable & adequate Hydration State: stable & adequate Anesthetic Complications: no major complications apparent and Pt Satisfied with anesthetic care
[2022-05-17] MEDS ORDERED: STAT IV STA (21:42)
[2022-05-17 21:53] LABS: BUN Creatinine Ratio 9.9 (10-20); Calcium 7.4 mg/dl (8.5-10.1); Creatinine Clr Calc Pharmacy 69.7 ml/min; Est GFR (Non-African American) 60.4 ml/min; Potassium 3.3 mmol/L (3.5-5.1)
[2022-05-17] MEDS ORDERED: CALCIUM GLUCONATE 10% 2,000 MG in DEXTROSE 5% 50 ML IV ONE (22:00)
[2022-05-17] MEDS ORDERED: DEXTROSE 50% 50 ML SYRINGE IV PRN (22:13)
[2022-05-17] MEDS ORDERED: GLUCOSE 40% GEL 15 GM TUBE PO PRN (22:13)
[2022-05-17] MEDS ORDERED: GLUCOSE 10 TAB/TUBE PO PRN (22:13)
[2022-05-17] MEDS ORDERED: CARBOHYDRATES FOR HYPOGLYCEMIA PO PRN (22:13)
[2022-05-17] MEDS ORDERED: GLUCAGON FOR INJ 1 MG VIAL SQ PRN (22:13)
[2022-05-17 22:15] LABS: Fibrinogen 269 mg/dl (184-400)
[2022-05-17] MEDS ORDERED: NORMOSOL-R 1,000 ML IV SCH (22:30)
[2022-05-17] MEDS ORDERED: ACETAMINOPHEN 1,000 MG/100 ML VIAL IV PRN (22:43)
[2022-05-17 22:46] LABS: iSTAT Allen Test Pass; iSTAT Art Bld Gas pCO2 Correct 32 mmHg (35-46); iSTAT Art Bld Gas pH Corrected 7.337 (7.35-7.45); iSTAT Arterial Blood Gas HCO3 17 meg/L (19-24); iSTAT Arterial Blood Gas pCO2 33 mmHg (35-46); iSTAT Arterial Blood Gas pH 7.33 (7.35-7.45); iSTAT Arterial Blood Gas pO2 90 mmHg (80-95); iSTAT Arterial Blood Gas pO2 C 87; iSTAT Carbon Dioxide 18 mmol/L (24-31); iSTAT Hematocrit 32 % (37-47); iSTAT Hemoglobin 10.9 g/dl (12.0-16.0); iSTAT Site L Radial; iSTAT Sodium 134 mmol/L (135-144)
[2022-05-17] MEDS ORDERED: ACETAMINOPHEN 1000 MG/100 ML IV IV ONE (22:47)
[2022-05-17 23:03] LABS: Hemoglobin 11.6 g/dl (12.0-16.0); Mean Corpuscular Hgb Conc 33.1 g/dL (32.0-36.0); Mean Corpuscular Volume 87.5 fL (80.0-100.0); Mean Platelet Volume 12.6 fL (9.4-12.4); Platelet Count 140 K/uL (130-400); RDW Coefficient of Variation 14.2 % (11.5-14.5); RDW Standard Deviation 45.5 fL (36.4-46.3); White Blood Count 25.18 K/ul (4.8-10.8)
[2022-05-17 23:24] LABS: Basophils # (auto) 0.04 K/uL (0-0.2); Basophils % (auto) 0.2 %; Echinocytes 2+; Immature Granulocytes # (auto) 0.24 K/uL (0.01-0.20); Lymphocytes # (auto) 1.14 K/uL (1.2-3.4); Lymphocytes % (auto) 4.5 %; Monocytes # (auto) 1.37 K/uL (0.11-0.59); Monocytes % (auto) 5.4 %; Neutrophils # (auto) 22.39 K/uL (1.40-6.50); Neutrophils % (auto) 88.9 %
[2022-05-18] MEDS: METHYLERGONOVINE MALEATE 0.2 MG TAB PO SCH ×5 (00:01→20:56)
[2022-05-18 02:50] LABS: Basophils # (auto) 0.03 K/uL (0-0.2); Basophils % (auto) 0.1 %; Hematocrit (blood only) 28.2 % (37.0-47.0); Hemoglobin 9.6 g/dl (12.0-16.0); Immature Granulocytes # (auto) 0.12 K/uL (0.01-0.20); Immature Granulocytes % (auto) 0.5 %; Lymphocytes # (auto) 1.07 K/uL (1.2-3.4); Lymphocytes % (auto) 4.8 %; Mean Corpuscular Volume 85.2 fL (80.0-100.0); Mean Platelet Volume 12.8 fL (9.4-12.4); Monocytes # (auto) 1.12 K/uL (0.11-0.59); Neutrophils # (auto) 19.97 K/uL (1.40-6.50); Neutrophils % (auto) 89.6 %; Platelet Count 106 K/uL (130-400); RDW Coefficient of Variation 14.2 % (11.5-14.5); RDW Standard Deviation 43.9 fL (36.4-46.3); Red Blood Count 3.31 M/uL (4.20-5.40); White Blood Count 22.31 K/ul (4.8-10.8)
[2022-05-18 03:01] LABS: Albumin Globulin Ratio 1.1 (0.9-2); Albumin Level 2.3 gm/dl (3.4-5.0); BUN Creatinine Ratio 12.8 (10-20); Bilirubin,Total 0.4 mg/dl (0.2-1.0); Calcium 7.8 mg/dl (8.5-10.1); Creatinine Clr Calc Pharmacy 89.7 ml/min; Magnesium 1.5 mg/dl (1.7-2.4); Phosphorus 3.5 mg/dl (2.5-4.9); Potassium 4.1 mmol/L (3.5-5.1); Total Protein 4.3 gm/dl (6.0-8.3)
[2022-05-18] MEDS: ICU ELECTROLYTE REPLACEMENT PROTOCOL SCH ×2 (03:06→12:56)
[2022-05-18 03:16] LABS: Partial Thromboplastin Time 28.2 Seconds (21.0-31.0); Prothrombin Time 10.2 Seconds (9.0-12.0)
[2022-05-18] MEDS: MAGNESIUM SULFATE / D5W 1 GM/100 ML BAG IV SCH ×4 (03:28→08:34)
--- NOTE | 2022-05-18 05:37 | Progress Note ---
Date of Service May 18, 2022 Assessment & Plan (1) hemorrhage: Plan: Patient lost approximately 3 L in the OR, she was received 2 units of packed red blood cells postop Reviewed the case with the patient and her support person in the room, and the plan to slowly remove fluid from the Bakri balloon this morning Total output from Bakhri since placement 150 mL Continue p.o. Methergine (2) Hemorrhagic shock: Plan: Continue to improve, not currently on pressors Currently helping being managed by ICU team, we appreciate their help (3) Leukocytosis: Admission and Anticipated Discharge Date Admission Date: May 16, 2022 Subjective Patient was sleeping comfortably in ICU, support person at bedside. No current complaints. Just overly tired due to multiple interruptions in the ICU. Physical Exam Constitutional: WD/WN, vitals as above Respiratory: normal respiratory effort, lungs clear to auscultation Cardiovascular: RRR, no murmur, no edema Gastrointestinal (Abdomen): normal bowel sounds, soft, nontender, no hepatosplenomegaly Results & Data ([facility]) Vital Signs (Past 12 Hours) Vital Signs Temp Pulse Pulse Resp BP BP Pulse Ox 05/18/22 03:30 81 14 05/18/22 03:30 95/59 L 05/18/22 03:00 100 H 19 96 05/18/22 02:30 91 H 21 94 05/18/22 02:30 112/76 05/18/22 02:00 86 19 94 05/18/22 02:00 37.1 C 104/81 05/18/22 01:30 80 22 93 05/18/22 01:30 116/81 05/18/22 01:00 79 18 05/18/22 00:30 99 H 18 92 05/18/22 00:30 129/100 05/18/22 00:06 114/75 05/18/22 00:06 95 H 21 05/18/22 00:00 98 H 12 93 05/17/22 23:45 100/86 05/17/22 23:45 110 H 10 L 93 05/17/22 23:30 95 H 20 93 05/17/22 23:30 122/84 05/17/22 23:15 93 H 18 95 05/17/22 23:15 122/78 05/17/22 23:00 93 H 19 94 05/17/22 23:00 90/65 L 05/17/22 22:45 90 22 97 05/17/22 22:45 102/70 05/17/22 22:30 90 24 96 05/17/22 22:30 115/82 05/18/22 01:17 88 05/17/22 22:10 85 16 123/84 100 05/17/22 23:32 36.5 C 89 16 127/65 100 05/17/22 22:00 90 16 121/90 100 05/17/22 21:55 84 16 124/82 99 05/17/22 21:50 36.4 C L 91 H 16 129/88 98 05/17/22 21:45 88 16 124/94 100 05/17/22 21:35 36.6 C 103 H 18 123/88 100 05/17/22 21:30 36.6 C 102 H 18 113/86 100 05/17/22 21:25 36.5 C 119 H 18 91/74 L 100 05/17/22 21:20 132 H 18 82/49 L 100 05/17/22 21:15 113 H 18 92/49 L 100 05/17/22 21:10 36.4 C L 114 H 18 86/55 L 100 05/17/22 21:05 108 H 18 83/47 L 100 05/17/22 21:00 118 H 18 85/48 L 100 05/17/22 20:55 36.6 C 115 H 18 71/45 L 100 05/17/22 19:07 94 05/17/22 19:07 134 H 05/17/22 19:07 131 H 122/81 05/17/22 19:04 111 H 114/80 05/17/22 19:02 108 H 95 05/17/22 19:01 98 H 74/46 L 05/17/22 18:58 117 H 05/17/22 18:58 113 H 66/42 L 86 L 05/17/22 18:57 113 H 84/53 L 91 05/17/22 18:55 116 H 76/45 L 05/17/22 18:52 110 H 87/54 L 93 05/17/22 18:51 110 H 89 L 05/17/22 18:49 111 H 71/47 L 05/17/22 18:47 151 H 95 05/17/22 18:48 76 76/51 L 05/17/22 18:42 113 H 92 05/17/22 18:37 90 94 05/17/22 18:32 81 121/67 91 05/17/22 18:27 70 93 05/17/22 18:25 81 89 L 05/17/22 18:22 69 94 05/17/22 18:17 73 94 05/17/22 18:18 57 L 133/68 05/17/22 18:14 90 87 L 05/17/22 18:12 82 95 05/17/22 18:09 76 88 L 05/17/22 18:07 75 95 05/17/22 18:02 67 20 131/70 95 05/17/22 17:57 105 H 95 05/17/22 17:52 57 L 92 05/17/22 17:49 58 L 118/75 05/17/22 17:47 51 L 94 05/17/22 17:42 50 L 94 05/17/22 17:37 54 L 95 O2 Del Method 05/18/22 03:30 05/18/22 03:30 05/18/22 03:00 05/18/22 02:30 05/18/22 02:30 05/18/22 02:00 05/18/22 02:00 05/18/22 01:30 05/18/22 01:30 05/18/22 01:00 05/18/22 00:30 05/18/22 00:30 05/18/22 00:06 05/18/22 00:06 05/18/22 00:00 05/17/22 23:45 05/17/22 23:45 05/17/22 23:30 05/17/22 23:30 05/17/22 23:15 05/17/22 23:15 05/17/22 23:00 05/17/22 23:00 05/17/22 22:45 05/17/22 22:45 05/17/22 22:30 05/17/22 22:30 05/18/22 01:17 05/17/22 22:10 Room Air 05/17/22 23:32 Room Air 05/17/22 22:00 Room Air 05/17/22 21:55 Room Air 05/17/22 21:50 Room Air 05/17/22 21:45 Room Air 05/17/22 21:35 Room Air 05/17/22 21:30 Room Air 05/17/22 21:25 Room Air 05/17/22 21:20 Room Air 05/17/22 21:15 Room Air 05/17/22 21:10 Room Air 05/17/22 21:05 Room Air 05/17/22 21:00 Room Air 05/17/22 20:55 Room Air 05/17/22 19:07 05/17/22 19:07 05/17/22 19:07 05/17/22 19:04 05/17/22 19:02 05/17/22 19:01 05/17/22 18:58 05/17/22 18:58 05/17/22 18:57 05/17/22 18:55 05/17/22 18:52 05/17/22 18:51 05/17/22 18:49 05/17/22 18:47 05/17/22 18:48 05/17/22 18:42 05/17/22 18:37 05/17/22 18:32 05/17/22 18:27 05/17/22 18:25 05/17/22 18:22 05/17/22 18:17 05/17/22 18:18 05/17/22 18:14 05/17/22 18:12 05/17/22 18:09 05/17/22 18:07 05/17/22 18:02 05/17/22 17:57 05/17/22 17:52 05/17/22 17:49 05/17/22 17:47 05/17/22 17:42 05/17/22 17:37 Laboratory Results Laboratory Results WBC 22.31 K/ul (4.8-10.8) H 05/18/22 02:15 RBC 3.31 M/uL (4.20-5.40) L 05/18/22 02:15 Hgb 9.6 g/dl (12.0-16.0) L 05/18/22 02:15 POC Hgb 10.9 g/dl (12.0-16.0) L 05/17/22 22:31 Hct 28.2 % (37.0-47.0) L 05/18/22 02:15 POC Hct 32 % (37-47) L 05/17/22 22:31 MCV 85.2 fL (80.0-100.0) 05/18/22 02:15 MCH 29.0 pg (25.0-34.0) 05/18/22 02:15 MCHC 34.0 g/dL (32.0-36.0) 05/18/22 02:15 RDW Std Deviation 43.9 fL (36.4-46.3) 05/18/22 02:15 RDW Coeff of Carlitos 14.2 % (11.5-14.5) 05/18/22 02:15 Plt Count 106 K/uL (130-400) L 05/18/22 02:15 MPV 12.8 fL (9.4-12.4) H 05/18/22 02:15 Immature Gran % (Auto) 0.5 % 05/18/22 02:15 Neut % (Auto) 89.6 % 05/18/22 02:15 Lymph % (Auto) 4.8 % 05/18/22 02:15 Otoe % (Auto) 5.0 % 05/18/22 02:15 Eos % (Auto) 0.0 % 05/18/22 02:15 Baso % (Auto) 0.1 % 05/18/22 02:15 Neut # (Auto) 19.97 K/uL (1.40-6.50) H 05/18/22 02:15 Lymph # (Auto) 1.07 K/uL (1.2-3.4) L 05/18/22 02:15 Otoe # (Auto) 1.12 K/uL (0.11-0.59) H 05/18/22 02:15 Eos # (Auto) 0.00 K/uL (0-0.50) 05/18/22 02:15 Baso # (Auto) 0.03 K/uL (0-0.2) 05/18/22 02:15 Immature Gran # (Auto) 0.12 K/uL (0.01-0.20) 05/18/22 02:15 Echinocytes 2+ 05/17/22 22:38 PT 10.2 Seconds (9.0-12.0) 05/18/22 02:15 INR 1.0 (0.9-1.1) 05/18/22 02:15 APTT 28.2 Seconds (21.0-31.0) 05/18/22 02:15 PTT Ratio 1.0 05/18/22 02:15 Fibrinogen 269 mg/dl (184-400) 05/17/22 21:10 Sample Site L Radial 05/17/22 22:31 POC pH 7.33 (7.35-7.45) L 05/17/22 22:31 POC pCO2 33 mmHg (35-46) L 05/17/22 22:31 POC pO2 90 mmHg (80-95) 05/17/22 22:31 POC HCO3 17 wander/L (19-24) L 05/17/22 22:31 POC Total CO2 18 mmol/L (24-31) L 05/17/22 22:31 POC Base Excess -9.0 wander/L (-9-1.8) 05/17/22 22:31 ABG pH (Temp Correct) 7.337 (7.35-7.45) L 05/17/22 22:31 ABG pCO2 (Temp Corrct 32 mmHg (35-46) L 05/17/22 22:31 POC ABG pO2 at Pt Temp 87 05/17/22 22:31 POC ABG O2 Sat 96.0 % (90-95) H 05/17/22 22:31 Michael Test Pass 05/17/22 22:31 O2 Delivery Device Room Air 05/17/22 22:31 POC Sodium 134 mmol/L (135-144) L 05/17/22 22:31 Sodium 133 mmol/L (136-145) L 05/18/22 02:15 POC Potassium 4.0 mmol/L (3.3-5.0) 05/17/22 22:31 Potassium 4.1 mmol/L (3.5-5.1) D 05/18/22 02:15 Chloride 105 mmol/L (98-107) 05/18/22 02:15 Carbon Dioxide 22 mmol/L (21-32) 05/18/22 02:15 Anion Gap 6 (3-11) 05/18/22 02:15 BUN 12 mg/dl (6-23) 05/18/22 02:15 Creatinine 0.94 mg/dl (0.6-1.2) 05/18/22 02:15 Est Cr Clr Drug Dosing 89.7 ml/min 05/18/22 02:15 Est GFR ( Amer) 95.0 ml/min 05/18/22 02:15 Est GFR (Non-Af Amer) 82.0 ml/min 05/18/22 02:15 BUN/Creatinine Ratio 12.8 (10-20) 05/18/22 02:15 Glucose 109 mg/dl (70-99(Fasting)) H 05/18/22 02:15 Lactate 3.6 mmol/L (0.4-2.0) H* 05/18/22 00:35 Calcium 7.8 mg/dl (8.5-10.1) L 05/18/22 02:15 Ionized Calcium 1.17 mmol/L (1.12-1.32) 05/18/22 02:15 Phosphorus 3.5 mg/dl (2.5-4.9) 05/18/22 02:15 Magnesium 1.5 mg/dl (1.7-2.4) L 05/18/22 02:15 Total Bilirubin 0.4 mg/dl (0.2-1.0) 05/18/22 02:15 AST 72 U/L (13-39) H 05/18/22 02:15 ALT 18 U/L (7-52) 05/18/22 02:15 Alkaline Phosphatase 80 U/L (34-104) 05/18/22 02:15 Total Protein 4.3 gm/dl (6.0-8.3) L 05/18/22 02:15 Albumin 2.3 gm/dl (3.4-5.0) L 05/18/22 02:15 Globulin 2.0 gm/dl (2.5-4.0) L 05/18/22 02:15 Albumin/Globulin Ratio 1.1 (0.9-2) 05/18/22 02:15 Nasal Screen MRSA (PCR) Negative (Negative) 05/17/22 22:30 SARS-CoV-2, RNA, NAAT NEGATIVE (NEGATIVE) 05/16/22 18:02 Blood Type O Positive 05/16/22 16:33 Blood Type Recheck O Positive 05/17/22 20:00 Antibody Screen NEGATIVE 05/16/22 16:33 Crossmatch See Detail 05/16/22 16:33
[2022-05-18] MEDS: PHENYLEPHRINE/NSS 25 MG/250 ML BAG IV SCH (07:54)
[2022-05-18] MEDS ORDERED: PRENATAL VITAMIN 1 TAB PO SCH ×2 (08:00→09:00)
[2022-05-18] MEDS: DOCUSATE SODIUM 100 MG CAP PO SCH ×2 (08:18→20:56)
--- NOTE | 2022-05-18 08:37 | Anesthesia Procedure Note ---
Date of Service May 18, 2022 Anesthesia Post Epidural Note Vital Signs Vital Signs: Temp Pulse Resp BP Pulse Ox O2 Del Method 98.8 F 83 15 105/69 95 Room Air 05/18/22 04:00 05/18/22 06:20 05/18/22 06:20 05/18/22 06:00 05/18/22 06:20 05/17/22 23:32 Pain Intensity Bilateral Anterior Abdomen: Pain Intensity: 0 Notes Mental Status: alert / awake / arousable and participated in evaluation Nausea / Vomiting: adequately controlled Pain: adequately controlled Airway Patency, RR, SpO2: stable & adequate BP & HR: stable & adequate Hydration State: stable & adequate Neuraxial Anesthesia: was administered and sensory block is resolving Anesthetic Complications: no major complications apparent and Pt Satisfied with anesthetic care Epidural: Removed without complications and With tip intact
--- NOTE | 2022-05-18 08:59 | XRay Report ---
XR chest 1V portable HISTORY: evaluate lung kim post blood resuscitation COMPARISON: None. FINDINGS: The lungs are clear. Cardiac silhouette is normal in size. No pleural effusions. No pneumot horax. IMPRESSION: No acute process. ACT 112: Negative or not required by law. Electronically signed by: Bryn Romo M.D. 05/18/2022 7:56 AM
--- NOTE | 2022-05-18 09:57 | Critical Care Progress Note ---
Date of Service May 18, 2022 Assessment & Plan (1) hemorrhage: (2) Hemorrhagic shock: (3) Leukocytosis: Plan Reason Critically Ill: S/P D&C for retained products following . Patient reportedly with 3 Liters of blood loss. Required vasopressor support through OR case. To the ICU for resuscitation. Neuro - Acute Pain: well controlled no acute needs and patient is awake and conversant- extubated in PACU Pain control with Tylenol, Percocet, consider Morphine If needed Cardiac - Hemorrhagic Shock: resovled Acute Blood loss anemia - Received 2 unit PRBCs, adequately resuscitated - Continue Methergine - defer to OBGYN for dosing and stopping Respiratory - NO acute needs GI - No acute needs - Bowel regimine in place - Advance diet as tolerated- regular diet RENAL/LYTES - MAICOL, resolved - S/P D&C with Bakarin Baloon insertion - monitor blood loss - defer to OBGYN for management ENDO - No acute needs - Goal BG <180 mg/DL HEME - Acute blood loss anemia, hemorrhagic shock: resolved - ID - Leukocytosis - likley secondary to acute stress- discussed with OBGYN no further abx needs from their standpoint - follow clinical course LINES/IV ACCESS - PIV, Thomas, Richard Balloon DVT PROPHYLAXIS - SCDS, patient to be ambulatory DISPO: Stable for downgrade from ICU Admission and Anticipated Discharge Date Admission Date: May 16, 2022 Subjective No overnight events Physical Exam Physical Exam: General: Alert. nontoxic. Skin: Warm, dry, Head: Atraumatic Ears, nose, mouth and throat: airway patent Cardiovascular: Normal peripheral perfusion Respiratory: no respiratory distress Gastrointestinal: Non distended Musculoskeletal: No deformity Results & Data Results & Data ([facility]) Vital Signs (Past 12 Hours) Vital Signs Temp Pulse Pulse Resp BP BP Pulse Ox 05/18/22 09:18 36.8 C 05/18/22 09:00 95 H 18 95 05/18/22 09:00 111/67 05/18/22 08:30 120/81 05/18/22 08:30 97 H 21 95 05/18/22 08:00 82 16 97 05/18/22 08:00 116/79 05/18/22 07:30 75 15 94 05/18/22 07:30 99/54 L 05/18/22 07:00 67 16 95 05/18/22 07:00 106/66 05/18/22 06:20 83 15 95 05/18/22 06:10 83 16 95 05/18/22 06:00 68 17 95 05/18/22 06:00 105/69 05/18/22 05:50 72 17 94 05/18/22 05:40 79 12 94 05/18/22 05:33 74 16 94 05/18/22 05:33 102/58 L 05/18/22 05:30 82 17 96 05/18/22 05:30 89/62 L 05/18/22 05:00 79 14 94 05/18/22 05:00 96/57 L 05/18/22 04:30 78 15 93 05/18/22 04:30 91/61 L 05/18/22 04:00 37.1 C 79 11 L 93 05/18/22 04:00 96/59 L 05/18/22 03:30 81 14 05/18/22 03:30 95/59 L 05/18/22 03:00 100 H 19 96 05/18/22 02:30 91 H 21 94 05/18/22 02:30 112/76 05/18/22 02:00 86 19 94 05/18/22 02:00 37.1 C 104/81 05/18/22 01:30 80 22 93 05/18/22 01:30 116/81 05/18/22 01:00 79 18 05/18/22 00:30 99 H 18 92 05/18/22 00:30 129/100 05/18/22 00:06 114/75 05/18/22 00:06 95 H 21 05/18/22 00:00 98 H 12 93 05/17/22 23:45 100/86 05/17/22 23:45 110 H 10 L 93 05/17/22 23:30 95 H 20 93 05/17/22 23:30 122/84 05/17/22 23:15 93 H 18 95 05/17/22 23:15 122/78 05/17/22 23:00 93 H 19 94 05/17/22 23:00 90/65 L 05/17/22 22:45 90 22 97 05/17/22 22:45 102/70 05/17/22 22:30 90 24 96 05/17/22 22:30 115/82 03/03/23 01:17 88 05/17/22 22:10 85 16 123/84 100 05/17/22 23:32 36.5 C 89 16 127/65 100 05/17/22 22:00 90 16 121/90 100 05/17/22 21:55 84 16 124/82 99 O2 Del Method 05/18/22 09:18 05/18/22 09:00 05/18/22 09:00 05/18/22 08:30 05/18/22 08:30 05/18/22 08:00 05/18/22 08:00 05/18/22 07:30 05/18/22 07:30 05/18/22 07:00 05/18/22 07:00 05/18/22 06:20 05/18/22 06:10 05/18/22 06:00 05/18/22 06:00 05/18/22 05:50 05/18/22 05:40 05/18/22 05:33 05/18/22 05:33 05/18/22 05:30 05/18/22 05:30 05/18/22 05:00 05/18/22 05:00 05/18/22 04:30 05/18/22 04:30 05/18/22 04:00 05/18/22 04:00 05/18/22 03:30 05/18/22 03:30 05/18/22 03:00 05/18/22 02:30 05/18/22 02:30 05/18/22 02:00 05/18/22 02:00 05/18/22 01:30 05/18/22 01:30 05/18/22 01:00 05/18/22 00:30 05/18/22 00:30 05/18/22 00:06 05/18/22 00:06 05/18/22 00:00 05/17/22 23:45 05/17/22 23:45 05/17/22 23:30 05/17/22 23:30 05/17/22 23:15 05/17/22 23:15 05/17/22 23:00 05/17/22 23:00 05/17/22 22:45 05/17/22 22:45 05/17/22 22:30 05/17/22 22:30 05/18/22 01:17 05/17/22 22:10 Room Air 05/17/22 23:32 Room Air 05/17/22 22:00 Room Air 05/17/22 21:55 Room Air Critical Care Results & Data Vital Signs (Past 12 Hours) Vital Signs Temp Pulse Pulse Resp BP BP Pulse Ox 05/18/22 09:18 36.8 C 05/18/22 09:00 95 H 18 95 05/18/22 09:00 111/67 05/18/22 08:30 120/81 05/18/22 08:30 97 H 21 95 05/18/22 08:00 82 16 97 05/18/22 08:00 116/79 05/18/22 07:30 75 15 94 05/18/22 07:30 99/54 L 05/18/22 07:00 67 16 95 05/18/22 07:00 106/66 05/18/22 06:20 83 15 95 05/18/22 06:10 83 16 95 05/18/22 06:00 68 17 95 05/18/22 06:00 105/69 05/18/22 05:50 72 17 94 05/18/22 05:40 79 12 94 05/18/22 05:33 74 16 94 05/18/22 05:33 102/58 L 05/18/22 05:30 82 17 96 05/18/22 05:30 89/62 L 05/18/22 05:00 79 14 94 05/18/22 05:00 96/57 L 05/18/22 04:30 78 15 93 05/18/22 04:30 91/61 L 05/18/22 04:00 37.1 C 79 11 L 93 05/18/22 04:00 96/59 L 05/18/22 03:30 81 14 05/18/22 03:30 95/59 L 05/18/22 03:00 100 H 19 96 05/18/22 02:30 91 H 21 94 05/18/22 02:30 112/76 05/18/22 02:00 86 19 94 05/18/22 02:00 37.1 C 104/81 05/18/22 01:30 80 22 93 05/18/22 01:30 116/81 05/18/22 01:00 79 18 03/03/23 00:30 99 H 18 92 05/18/22 00:30 129/100 05/18/22 00:06 114/75 05/18/22 00:06 95 H 21 05/18/22 00:00 98 H 12 93 05/17/22 23:45 100/86 05/17/22 23:45 110 H 10 L 93 05/17/22 23:30 95 H 20 93 05/17/22 23:30 122/84 05/17/22 23:15 93 H 18 95 05/17/22 23:15 122/78 05/17/22 23:00 93 H 19 94 05/17/22 23:00 90/65 L 05/17/22 22:45 90 22 97 05/17/22 22:45 102/70 05/17/22 22:30 90 24 96 05/17/22 22:30 115/82 05/18/22 01:17 88 05/17/22 22:10 85 16 123/84 100 05/17/22 23:32 36.5 C 89 16 127/65 100 05/17/22 22:00 90 16 121/90 100 05/17/22 21:55 84 16 124/82 99 O2 Del Method 05/18/22 09:18 05/18/22 09:00 05/18/22 09:00 05/18/22 08:30 05/18/22 08:30 05/18/22 08:00 05/18/22 08:00 05/18/22 07:30 05/18/22 07:30 05/18/22 07:00 05/18/22 07:00 05/18/22 06:20 05/18/22 06:10 05/18/22 06:00 05/18/22 06:00 05/18/22 05:50 05/18/22 05:40 05/18/22 05:33 05/18/22 05:33 05/18/22 05:30 05/18/22 05:30 05/18/22 05:00 05/18/22 05:00 05/18/22 04:30 05/18/22 04:30 05/18/22 04:00 05/18/22 04:00 05/18/22 03:30 05/18/22 03:30 05/18/22 03:00 05/18/22 02:30 05/18/22 02:30 05/18/22 02:00 05/18/22 02:00 05/18/22 01:30 05/18/22 01:30 05/18/22 01:00 05/18/22 00:30 05/18/22 00:30 05/18/22 00:06 05/18/22 00:06 05/18/22 00:00 05/17/22 23:45 05/17/22 23:45 05/17/22 23:30 05/17/22 23:30 05/17/22 23:15 05/17/22 23:15 05/17/22 23:00 05/17/22 23:00 05/17/22 22:45 05/17/22 22:45 05/17/22 22:30 05/17/22 22:30 05/18/22 01:17 05/17/22 22:10 Room Air 05/17/22 23:32 Room Air 05/17/22 22:00 Room Air 05/17/22 21:55 Room Air Lab & Micro Results (Past 24 Hours) RBC 3.31 M/uL (4.20-5.40) L 05/18/22 WBC 22.31 K/ul (4.8-10.8) H 05/18/22 Hgb 9.6 g/dl (12.0-16.0) L 05/18/22 Hct 28.2 % (37.0-47.0) L 05/18/22 MCV 85.2 fL (80.0-100.0) 05/18/22 MCH 29.0 pg (25.0-34.0) 05/18/22 MCHC 34.0 g/dL (32.0-36.0) 05/18/22 RDW Standard Deviation 43.9 fL (36.4-46.3) 05/18/22 RDW Coefficient of Variation 14.2 % (11.5-14.5) 05/18/22 Plt Count 106 K/uL (130-400) L 05/18/22 MPV 12.8 fL (9.4-12.4) H 05/18/22 Neutrophils (%) (Auto) 89.6 % 05/18/22 Lymphocytes (%) (Auto) 4.8 % 05/18/22 Monocytes # (Auto) 1.12 K/uL (0.11-0.59) H 05/18/22 Eosinophils # (Auto) 0.00 K/uL (0-0.50) 05/18/22 Immature Granulocyte % (Auto) 0.5 % 05/18/22 Neutrophils # (Auto) 19.97 K/uL (1.40-6.50) H 05/18/22 Lymphocytes # (Auto) 1.07 K/uL (1.2-3.4) L 05/18/22 Monocytes # (Auto) 1.12 K/uL (0.11-0.59) H 05/18/22 Eosinophils # (Auto) 0.00 K/uL (0-0.50) 05/18/22 Basophils # (Auto) 0.03 K/uL (0-0.2) 05/18/22 Immature Granulocyte # (Auto) 0.12 K/uL (0.01-0.20) 3 Echinocytes 2+ 05/17/22 Na 133 mmol/L (136-145) L 05/18/22 K 4.1 mmol/L (3.5-5.1) 05/18/22 Cl 105 mmol/L (98-107) 05/18/22 CO2 22 mmol/L (21-32) 05/18/22 Anion Gap 6 (3-11) 05/18/22 BUN 12 mg/dl (6-23) 05/18/22 Creatinine 0.94 mg/dl (0.6-1.2) 05/18/22 Estimated GFR ( Amer) 95.0 ml/min 05/18/22 Estimated GFR (Non-Af Amer) 82.0 ml/min 05/18/22 BUN/Creatinine Ratio 12.8 (10-20) 05/18/22 Glu 109 mg/dl (70-99(Fasting)) H 05/18/22 Ca 7.8 mg/dl (8.5-10.1) L 05/18/22 Phosphorus Level 3.5 mg/dl (2.5-4.9) 05/18/22 Total Bilirubin 0.4 mg/dl (0.2-1.0) 05/18/22 AST 72 U/L (13-39) H 05/18/22 ALT 18 U/L (7-52) 05/18/22 Alkaline Phosphatase 80 U/L (34-104) 05/18/22 TP 4.3 gm/dl (6.0-8.3) L 05/18/22 Albumin 2.3 gm/dl (3.4-5.0) L 05/18/22 Globulin 2.0 gm/dl (2.5-4.0) L 05/18/22 Albumin/Globulin Ratio 1.1 (0.9-2) 05/18/22 Mg 1.5 mg/dl (1.7-2.4) L 05/18/22 02:15 Calcium Level 7.8 mg/dl (8.5-10.1) L 05/18/22 02:15 Ionized Calcium 1.17 mmol/L (1.12-1.32) 05/18/22 02:15 Prothromb Time International Ratio 1.0 (0.9-1.1) 05/18/22 02:1 5 Michael Test Pass 05/17/22 22:31 Diagnostic Findings (Past 24 Hours) Chest X-Ray 05/18/22 05:00 XR chest 1V portable HISTORY: evaluate lung kim post blood resuscitation COMPARISON: None. FINDINGS: The lungs are clear. Cardiac silhouette is normal in size. No pleural effusions. No pneumothorax. IMPRESSION: No acute process. ACT 112: Negative or not required by law. Electronically signed by: Bryn Romo M.D. 05/18/2022 7:56 AM I & O Totals 24 Hours 05/17/22 05/18/22 05/19/22 06:59 06:59 06:59 Intake Total 4141.534 / 4141.534 680 / 680 Output Total 500 / 500 1505 / 1505 1000 / 1000 Balance -500 / -500 2636.534 / 2636.534 -320 / -320 Cumulative 05/16/22 14:45 thru 05/18/22 08:34 Intake Total 4821.534 Output Total 3005 Balance 1816.534 RT Ventilator Mngmt (Last Documented) Ventilator Ordered Settings Respiratory Rate 18 05/18/22 09:00 Ventilator - PT Measurements Respiratory Rate 18 Coding Level of Care Code 09403 SUB INP/OBS CARE 2/35MIN Diagnoses hemorrhage O72.1 Hemorrhagic shock R57.8 Leukocytosis D72.829
--- NOTE | 2022-05-18 11:36 | Obstetrical Progress Note ---
Date of Service May 18, 2022 Subjective Ambulation: limited ambulation Voiding: cox catheter in place Diet Tolerance:: regular diet Lochia:: Small Feeding Type:: breast feeding Current Pain Level(1-10): 0 doing well. no pain or bleeding. No SOB or dizziness. Physical Exam Constitutional WD/WN, vitals as above Gastrointestinal (Abdomen) Inspection/Auscultation: abdomen normal to inspection abdomen soft and non-tender. Fundus firm below U Musculoskeletal Extremities: extremities normal to inspection Skin no rashes, warm and dry Neurologic patellar DTR's 2+ bilat, sensation intact Psychiatric A+Ox3, euthymic affect Results & Data ([facility]) Vital Signs (Past 12 Hours) Vital Signs Temp Pulse Resp BP Pulse Ox 05/18/22 10:30 96 H 24 93 05/18/22 10:30 103/54 L 05/18/22 10:20 98 H 22 92 05/18/22 10:10 87 15 94 05/18/22 10:00 121/73 05/18/22 09:31 103/62 05/18/22 09:31 87 17 95 05/18/22 09:18 36.8 C 05/18/22 09:00 95 H 18 95 05/18/22 09:00 111/67 05/18/22 08:30 120/81 05/18/22 08:30 97 H 21 95 05/18/22 08:00 82 16 97 05/18/22 08:00 116/79 05/18/22 07:30 75 15 94 05/18/22 07:30 99/54 L 05/18/22 07:00 67 16 95 05/18/22 07:00 106/66 05/18/22 06:20 83 15 95 05/18/22 06:10 83 16 95 05/18/22 06:00 68 17 95 05/18/22 06:00 105/69 05/18/22 05:50 72 17 94 05/18/22 05:40 79 12 94 05/18/22 05:33 74 16 94 05/18/22 05:33 102/58 L 05/18/22 05:30 82 17 96 05/18/22 05:30 89/62 L 05/18/22 05:00 79 14 94 05/18/22 05:00 96/57 L 05/18/22 04:30 78 15 93 05/18/22 04:30 91/61 L 05/18/22 04:00 37.1 C 79 11 L 93 05/18/22 04:00 96/59 L 05/18/22 03:30 81 14 05/18/22 03:30 95/59 L 05/18/22 03:00 100 H 19 96 05/18/22 02:30 91 H 21 94 05/18/22 02:30 112/76 05/18/22 02:00 86 19 94 05/18/22 02:00 37.1 C 104/81 05/18/22 01:30 80 22 93 05/18/22 01:30 116/81 05/18/22 01:00 79 18 05/18/22 00:30 99 H 18 92 05/18/22 00:30 129/100 05/18/22 00:06 114/75 05/18/22 00:06 95 H 21 05/18/22 00:00 98 H 12 93 05/17/22 23:45 100/86 05/17/22 23:45 110 H 10 L 93 05/18/22 01:17 88 Laboratory Results 05/16/22 05/16/22 05/16/22 16:33 16:33 18:02 WBC 6.81 RBC 4.59 Hgb 13.0 POC Hgb Hct 39.9 POC Hct MCV 86.9 MCH 28.3 MCHC 32.6 RDW Std Deviation 43.9 RDW Coeff of [place] 14.1 Plt Count 163 MPV 13.4 H Immature Gran % (Auto) Neut % (Auto) Lymph % (Auto) [place] % (Auto) Eos % (Auto) Baso % (Auto) Neut # (Auto) Lymph # (Auto) [place] # (Auto) Eos # (Auto) Baso # (Auto) Immature Gran # (Auto) Echinocytes PT INR APTT PTT Ratio Fibrinogen Sample Site POC pH POC pCO2 POC pO2 POC HCO3 POC Total CO2 POC Base Excess ABG pH (Temp Correct) ABG pCO2 (Temp Corrct POC ABG pO2 at Pt Temp POC ABG O2 Sat Michael Test O2 Delivery Device POC Sodium Sodium POC Potassium Potassium Chloride Carbon Dioxide Anion Gap BUN Creatinine Est Cr Clr Drug Dosing Est GFR ( Amer) Est GFR (Non-Af Amer) BUN/Creatinine Ratio Glucose Lactate Calcium Ionized Calcium Phosphorus Magnesium Total Bilirubin AST ALT Alkaline Phosphatase Total Protein Albumin Globulin Albumin/Globulin Ratio Nasal Screen MRSA (PCR) SARS-CoV-2, RNA, NAAT NEGATIVE Blood Type O Positive Blood Type Recheck Antibody Screen NEGATIVE Crossmatch See Detail 05/17/22 05/17/22 05/17/22 19:40 19:40 20:00 WBC 22.87 H RBC 3.84 L Hgb 10.8 L POC Hgb Hct 33.0 L POC Hct MCV 85.9 MCH 28.1 MCHC 32.7 RDW Std Deviation 43.7 RDW Coeff of [place] 14.0 Plt Count 150 MPV 13.3 H Immature Gran % (Auto) 0.4 Neut % (Auto) 87.9 Lymph % (Auto) 5.9 [place] % (Auto) 5.6 Eos % (Auto) 0.0 Baso % (Auto) 0.2 Neut # (Auto) 20.11 H Lymph # (Auto) 1.35 [place] # (Auto) 1.27 H Eos # (Auto) 0.01 Baso # (Auto) 0.04 Immature Gran # (Auto) 0.09 Echinocytes PT 9.8 INR 0.9 APTT 24.8 PTT Ratio 0.9 Fibrinogen Sample Site POC pH POC pCO2 POC pO2 POC HCO3 POC Total CO2 POC Base Excess ABG pH (Temp Correct) ABG pCO2 (Temp Corrct POC ABG pO2 at Pt Temp POC ABG O2 Sat Michael Test O2 Delivery Device POC Sodium Sodium POC Potassium Potassium Chloride Carbon Dioxide Anion Gap BUN Creatinine Est Cr Clr Drug Dosing Est GFR ( Amer) Est GFR (Non-Af Amer) BUN/Creatinine Ratio Glucose Lactate Calcium Ionized Calcium Phosphorus Magnesium Total Bilirubin AST ALT Alkaline Phosphatase Total Protein Albumin Globulin Albumin/Globulin Ratio Nasal Screen MRSA (PCR) SARS-CoV-2, RNA, NAAT Blood Type Blood Type Recheck O Positive Antibody Screen Crossmatch 05/17/22 05/17/22 05/17/22 21:10 21:10 21:16 WBC RBC Hgb POC Hgb Hct POC Hct MCV MCH MCHC RDW Std Deviation RDW Coeff of [place] Plt Count MPV Immature Gran % (Auto) Neut % (Auto) Lymph % (Auto) [place] % (Auto) Eos % (Auto) Baso % (Auto) Neut # (Auto) Lymph # (Auto) [place] # (Auto) Eos # (Auto) Baso # (Auto) Immature Gran # (Auto) Echinocytes PT INR APTT PTT Ratio Fibrinogen 269 Sample Site POC pH POC pCO2 POC pO2 POC HCO3 POC Total CO2 POC Base Excess ABG pH (Temp Correct) ABG pCO2 (Temp Corrct POC ABG pO2 at Pt Temp POC ABG O2 Sat Michael Test O2 Delivery Device POC Sodium Sodium POC Potassium Potassium Chloride Carbon Dioxide Anion Gap BUN Creatinine Est Cr Clr Drug Dosing Est GFR ( Amer) Est GFR (Non-Af Amer) BUN/Creatinine Ratio Glucose Lactate 5.3 H* Calcium Ionized Calcium 1.07 L Phosphorus Magnesium Total Bilirubin AST ALT Alkaline Phosphatase Total Protein Albumin Globulin Albumin/Globulin Ratio Nasal Screen MRSA (PCR) SARS-CoV-2, RNA, NAAT Blood Type Blood Type Recheck Antibody Screen Crossmatch 05/17/22 05/17/22 05/17/22 21:17 22:30 22:31 WBC RBC Hgb POC Hgb 10.9 L Hct POC Hct 32 L MCV MCH MCHC RDW Std Deviation RDW Coeff of [place] Plt Count MPV Immature Gran % (Auto) Neut % (Auto) Lymph % (Auto) [place] % (Auto) Eos % (Auto) Baso % (Auto) Neut # (Auto) Lymph # (Auto) [place] # (Auto) Eos # (Auto) Baso # (Auto) Immature Gran # (Auto) Echinocytes PT INR APTT PTT Ratio Fibrinogen Sample Site L Radial POC pH 7.33 L POC pCO2 33 L POC pO2 90 POC HCO3 17 L POC Total CO2 18 L POC Base Excess -9.0 ABG pH (Temp Correct) 7.337 L ABG pCO2 (Temp Corrct 32 L POC ABG pO2 at Pt Temp 87 POC ABG O2 Sat 96.0 H Michael Test Pass O2 Delivery Device Room Air POC Sodium 134 L Sodium 135 L POC Potassium 4.0 Potassium 3.3 L Chloride 105 Carbon Dioxide 21 Anion Gap 9 BUN 12 Creatinine 1.21 H Est Cr Clr Drug Dosing 69.7 Est GFR ( Amer) 70.0 Est GFR (Non-Af Amer) 60.4 BUN/Creatinine Ratio 9.9 L Glucose 158 H Lactate Calcium 7.4 L Ionized Calcium Phosphorus Magnesium Total Bilirubin AST ALT Alkaline Phosphatase Total Protein Albumin Globulin Albumin/Globulin Ratio Nasal Screen MRSA (PCR) Negative SARS-CoV-2, RNA, NAAT Blood Type Blood Type Recheck Antibody Screen Crossmatch 05/17/22 05/17/22 05/18/22 22:38 22:38 00:35 WBC 25.18 H RBC 4.00 L Hgb 11.6 L POC Hgb Hct 35.0 L POC Hct MCV 87.5 MCH 29.0 MCHC 33.1 RDW Std Deviation 45.5 RDW Coeff of [place] 14.2 Plt Count 140 MPV 12.6 H Immature Gran % (Auto) 1.0 Neut % (Auto) 88.9 Lymph % (Auto) 4.5 [place] % (Auto) 5.4 Eos % (Auto) 0.0 Baso % (Auto) 0.2 Neut # (Auto) 22.39 H Lymph # (Auto) 1.14 L [place] # (Auto) 1.37 H Eos # (Auto) 0.00 Baso # (Auto) 0.04 Immature Gran # (Auto) 0.24 H Echinocytes 2+ PT INR APTT PTT Ratio Fibrinogen Sample Site POC pH POC pCO2 POC pO2 POC HCO3 POC Total CO2 POC Base Excess ABG pH (Temp Correct) ABG pCO2 (Temp Corrct POC ABG pO2 at Pt Temp POC ABG O2 Sat Michael Test O2 Delivery Device POC Sodium Sodium POC Potassium Potassium Chloride Carbon Dioxide Anion Gap BUN Creatinine Est Cr Clr Drug Dosing Est GFR ( Amer) Est GFR (Non-Af Amer) BUN/Creatinine Ratio Glucose Lactate 4.0 H* 3.6 H* Calcium Ionized Calcium Phosphorus Magnesium Total Bilirubin AST ALT Alkaline Phosphatase Total Protein Albumin Globulin Albumin/Globulin Ratio Nasal Screen MRSA (PCR) SARS-CoV-2, RNA, NAAT Blood Type Blood Type Recheck Antibody Screen Crossmatch 05/18/22 05/18/22 05/18/22 02:15 02:15 02:15 WBC 22.31 H RBC 3.31 L Hgb 9.6 L POC Hgb Hct 28.2 L POC Hct MCV 85.2 MCH 29.0 MCHC 34.0 RDW Std Deviation 43.9 RDW Coeff of [place] 14.2 Plt Count 106 L MPV 12.8 H Immature Gran % (Auto) 0.5 Neut % (Auto) 89.6 Lymph % (Auto) 4.8 [place] % (Auto) 5.0 Eos % (Auto) 0.0 Baso % (Auto) 0.1 Neut # (Auto) 19.97 H Lymph # (Auto) 1.07 L [place] # (Auto) 1.12 H Eos # (Auto) 0.00 Baso # (Auto) 0.03 Immature Gran # (Auto) 0.12 Echinocytes PT 10.2 INR 1.0 APTT 28.2 PTT Ratio 1.0 Fibrinogen Sample Site POC pH POC pCO2 POC pO2 POC HCO3 POC Total CO2 POC Base Excess ABG pH (Temp Correct) ABG pCO2 (Temp Corrct POC ABG pO2 at Pt Temp POC ABG O2 Sat Michael Test O2 Delivery Device POC Sodium Sodium 133 L POC Potassium Potassium 4.1 D Chloride 105 Carbon Dioxide 22 Anion Gap 6 BUN 12 Creatinine 0.94 Est Cr Clr Drug Dosing 89.7 Est GFR ( Amer) 95.0 Est GFR (Non-Af Amer) 82.0 BUN/Creatinine Ratio 12.8 Glucose 109 H Lactate Calcium 7.8 L Ionized Calcium Phosphorus 3.5 Magnesium 1.5 L Total Bilirubin 0.4 AST 72 H ALT 18 Alkaline Phosphatase 80 Total Protein 4.3 L Albumin 2.3 L Globulin 2.0 L Albumin/Globulin Ratio 1.1 Nasal Screen MRSA (PCR) SARS-CoV-2, RNA, NAAT Blood Type Blood Type Recheck Antibody Screen Crossmatch 05/18/22 05/18/22 02:15 10:09 WBC RBC Hgb POC Hgb Hct POC Hct MCV MCH MCHC RDW Std Deviation RDW Coeff of [place] Plt Count MPV Immature Gran % (Auto) Neut % (Auto) Lymph % (Auto) [place] % (Auto) Eos % (Auto) Baso % (Auto) Neut # (Auto) Lymph # (Auto) [place] # (Auto) Eos # (Auto) Baso # (Auto) Immature Gran # (Auto) Echinocytes PT INR APTT PTT Ratio Fibrinogen Sample Site POC pH POC pCO2 POC pO2 POC HCO3 POC Total CO2 POC Base Excess ABG pH (Temp Correct) ABG pCO2 (Temp Corrct POC ABG pO2 at Pt Temp POC ABG O2 Sat Michael Test O2 Delivery Device POC Sodium Sodium POC Potassium Potassium Chloride Carbon Dioxide Anion Gap BUN Creatinine Est Cr Clr Drug Dosing Est GFR ( Amer) Est GFR (Non-Af Amer) BUN/Creatinine Ratio Glucose Lactate 1.7 Calcium Ionized Calcium 1.17 Phosphorus Magnesium Total Bilirubin AST ALT Alkaline Phosphatase Total Protein Albumin Globulin Albumin/Globulin Ratio Nasal Screen MRSA (PCR) SARS-CoV-2, RNA, NAAT Blood Type Blood Type Recheck Antibody Screen Crossmatch
[2022-05-18] MEDS ORDERED: OXYTOCIN 30 UNITS/500 ML BAG IV PRN (13:07)
[2022-05-18] MEDS ORDERED: bisacodyL 10 MG SUPP PR PRN (13:07)
[2022-05-18] MEDS ORDERED: BENZOCAINE 20% AER SPR 82.5 GM CAN EXT PRN (13:07)
[2022-05-18] MEDS ORDERED: DIPHTHERIA/TETANUS/PERTUSSIS 0.5mL SYR/VIAL (Age 7+yrs) IM ONE (13:07)
[2022-05-18] MEDS ORDERED: ACETAMINOPHEN 325 MG TAB PO PRN (13:07)
[2022-05-18] MEDS ORDERED: HYDROCORTISONE ACETATE 25 MG SUPP PR PRN (13:07)
[2022-05-18] MEDS ORDERED: IBUPROFEN 600 MG TAB PO PRN (13:07)
--- NOTE | 2022-05-18 13:46 | Progress Note ---
Date of Service May 18, 2022 Assessment & Plan Admission and Anticipated Discharge Date Admission Date: May 16, 2022 Subjective patient doing well Physical Exam Constitutional: WD/WN, vitals as above Bakri balloon in place. 50 ml. saline removed. Results & Data ([facility]) Vital Signs (Past 12 Hours) Vital Signs Temp Pulse Resp BP Pulse Ox 05/18/22 11:30 93 H 17 95 05/18/22 11:30 111/68 05/18/22 11:00 99 H 19 95 05/18/22 11:00 110/71 05/18/22 10:30 96 H 24 93 05/18/22 10:30 103/54 L 05/18/22 10:20 98 H 22 92 05/18/22 10:10 87 15 94 05/18/22 10:00 121/73 05/18/22 09:31 103/62 05/18/22 09:31 87 17 95 05/18/22 09:18 36.8 C 05/18/22 09:00 95 H 18 95 05/18/22 09:00 111/67 05/18/22 08:30 120/81 05/18/22 08:30 97 H 21 95 05/18/22 08:00 82 16 97 05/18/22 08:00 116/79 05/18/22 07:30 75 15 94 05/18/22 07:30 99/54 L 05/18/22 07:00 67 16 95 05/18/22 07:00 106/66 05/18/22 06:20 83 15 95 05/18/22 06:10 83 16 95 05/18/22 06:00 68 17 95 05/18/22 06:00 105/69 05/18/22 05:50 72 17 94 05/18/22 05:40 79 12 94 05/18/22 05:33 74 16 94 05/18/22 05:33 102/58 L 05/18/22 05:30 82 17 96 05/18/22 05:30 89/62 L 05/18/22 05:00 79 14 94 05/18/22 05:00 96/57 L 05/18/22 04:30 78 15 93 05/18/22 04:30 91/61 L 05/18/22 04:00 37.1 C 79 11 L 93 05/18/22 04:00 96/59 L 05/18/22 03:30 81 14 05/18/22 03:30 95/59 L 05/18/22 03:00 100 H 19 96 05/18/22 02:30 91 H 21 94 05/18/22 02:30 112/76 05/18/22 02:00 86 19 94 05/18/22 02:00 37.1 C 104/81
--- NOTE | 2022-05-18 15:24 | Progress Note ---
Date of Service May 18, 2022 Assessment & Plan Admission and Anticipated Discharge Date Admission Date: May 16, 2022 Subjective doing well Physical Exam Constitutional: WD/WN, vitals as above 50 ml saline removed from Bakri balloon Results & Data ([facility]) Vital Signs (Past 12 Hours) Vital Signs Temp Pulse Resp BP Pulse Ox 05/18/22 11:30 93 H 17 95 05/18/22 11:30 111/68 05/18/22 11:00 99 H 19 95 05/18/22 11:00 110/71 05/18/22 10:30 96 H 24 93 05/18/22 10:30 103/54 L 05/18/22 10:20 98 H 22 92 05/18/22 10:10 87 15 94 05/18/22 10:00 121/73 05/18/22 09:31 103/62 05/18/22 09:31 87 17 95 05/18/22 09:18 36.8 C 05/18/22 09:00 95 H 18 95 05/18/22 09:00 111/67 05/18/22 08:30 120/81 05/18/22 08:30 97 H 21 95 05/18/22 08:00 82 16 97 05/18/22 08:00 116/79 05/18/22 07:30 75 15 94 05/18/22 07:30 99/54 L 05/18/22 07:00 67 16 95 05/18/22 07:00 106/66 05/18/22 06:20 83 15 95 05/18/22 06:10 83 16 95 05/18/22 06:00 68 17 95 05/18/22 06:00 105/69 05/18/22 05:50 72 17 94 05/18/22 05:40 79 12 94 05/18/22 05:33 74 16 94 05/18/22 05:33 102/58 L 05/18/22 05:30 82 17 96 05/18/22 05:30 89/62 L 05/18/22 05:00 79 14 94 05/18/22 05:00 96/57 L 05/18/22 04:30 78 15 93 05/18/22 04:30 91/61 L 05/18/22 04:00 37.1 C 79 11 L 93 03/03/23 04:00 96/59 L 05/18/22 03:30 81 14 05/18/22 03:30 95/59 L
--- NOTE | 2022-05-18 16:34 | Obstetrical Progress Note ---
Date of Service May 18, 2022 Subjective doing well Physical Exam Constitutional WD/WN, vitals as above 250 ml. saline removed from Bakri balloon and then removed from uterus intact. No bleeding and minimal blood in Bakri Thomas. Repeat CBC at 6 PM pending. Results & Data ([facility]) Vital Signs (Past 12 Hours) Vital Signs Temp Pulse Pulse Resp BP BP Pulse Ox 05/18/22 15:44 37.2 C 91 H 18 126/71 05/18/22 13:07 05/18/22 11:30 93 H 17 95 05/18/22 11:30 111/68 05/18/22 11:00 99 H 19 95 05/18/22 11:00 110/71 05/18/22 10:30 96 H 24 93 05/18/22 10:30 103/54 L 05/18/22 10:20 98 H 22 92 05/18/22 10:10 87 15 94 05/18/22 10:00 121/73 05/18/22 09:31 103/62 05/18/22 09:31 87 17 95 05/18/22 09:18 36.8 C 05/18/22 09:00 95 H 18 95 05/18/22 09:00 111/67 05/18/22 08:30 120/81 05/18/22 08:30 97 H 21 95 05/18/22 08:00 82 16 97 05/18/22 08:00 116/79 05/18/22 07:30 75 15 94 05/18/22 07:30 99/54 L 05/18/22 07:00 67 16 95 05/18/22 07:00 106/66 05/18/22 06:20 83 15 95 05/18/22 06:10 83 16 95 05/18/22 06:00 68 17 95 05/18/22 06:00 105/69 05/18/22 05:50 72 17 94 05/18/22 05:40 79 12 94 05/18/22 05:33 74 16 94 05/18/22 05:33 102/58 L 05/18/22 05:30 82 17 96 05/18/22 05:30 89/62 L 05/18/22 05:00 79 14 94 05/18/22 05:00 96/57 L O2 Del Method 05/18/22 15:44 Room Air 05/18/22 13:07 Room Air 05/18/22 11:30 05/18/22 11:30 05/18/22 11:00 05/18/22 11:00 05/18/22 10:30 05/18/22 10:30 05/18/22 10:20 05/18/22 10:10 05/18/22 10:00 05/18/22 09:31 05/18/22 09:31 05/18/22 09:18 05/18/22 09:00 05/18/22 09:00 05/18/22 08:30 05/18/22 08:30 05/18/22 08:00 05/18/22 08:00 05/18/22 07:30 05/18/22 07:30 05/18/22 07:00 05/18/22 07:00 05/18/22 06:20 05/18/22 06:10 05/18/22 06:00 05/18/22 06:00 05/18/22 05:50 05/18/22 05:40 05/18/22 05:33 05/18/22 05:33 05/18/22 05:30 05/18/22 05:30 05/18/22 05:00 05/18/22 05:00
[2022-05-18 18:28] LABS: Hematocrit (blood only) 25.4 % (37.0-47.0); Hemoglobin 8.8 g/dl (12.0-16.0); Mean Corpuscular Hemoglobin 29.2 pg (25.0-34.0); Mean Corpuscular Hgb Conc 34.6 g/dL (32.0-36.0); Mean Corpuscular Volume 84.4 fL (80.0-100.0); Mean Platelet Volume 12.9 fL (9.4-12.4); Platelet Count 123 K/uL (130-400); RDW Coefficient of Variation 15.2 % (11.5-14.5); RDW Standard Deviation 46.2 fL (36.4-46.3); Red Blood Count 3.01 M/uL (4.20-5.40); White Blood Count 18.53 K/ul (4.8-10.8)
[2022-05-18] MEDS ORDERED: bisacodyL 5 MG TABEC PO SCH (20:00)
[2022-05-18] MEDS ORDERED: DOCUSATE SODIUM 100 MG CAP PO SCH (21:00)
[2022-05-19] MEDS: DOCUSATE SODIUM 100 MG CAP PO SCH (07:53)
[2022-05-19] MEDS: METHYLERGONOVINE MALEATE 0.2 MG TAB PO SCH (07:54)
[2022-05-19] MEDS ORDERED: PRENATAL VITAMIN 1 TAB PO SCH (08:00)
[2022-05-19] MEDS ORDERED: FERROUS SULFATE 325 MG TAB PO SCH (08:00)
[2022-05-19 08:15] LABS: Hematocrit (blood only) 20.9 % (37.0-47.0); Mean Corpuscular Hgb Conc 33.5 g/dL (32.0-36.0); Mean Corpuscular Volume 86.7 fL (80.0-100.0); Mean Platelet Volume 12.2 fL (9.4-12.4); Platelet Count 104 K/uL (130-400); RDW Standard Deviation 47.8 fL (36.4-46.3); Red Blood Count 2.41 M/uL (4.20-5.40); White Blood Count 11.91 K/ul (4.8-10.8)
[2022-05-19 08:16] LABS: Anisocytosis Present; Basophils # (auto) 0.02 K/uL (0-0.2); Basophils % (auto) 0.2 %; Eosinophils # (auto) 0.09 K/uL (0-0.50); Eosinophils % (auto) 0.8 %; Immature Granulocytes # (auto) 0.08 K/uL (0.01-0.20); Immature Granulocytes % (auto) 0.7 %; Lymphocytes # (auto) 1.48 K/uL (1.2-3.4); Lymphocytes % (auto) 12.4 %; Monocytes # (auto) 0.75 K/uL (0.11-0.59); Monocytes % (auto) 6.3 %; Neutrophils # (auto) 9.49 K/uL (1.40-6.50); Neutrophils % (auto) 79.6 %
--- NOTE | 2022-05-19 11:47 | Obstetrical Progress Note ---
Date of Service May 19, 2022 Assessment & Plan (1) Normal course: Pt doing well s/p PPH Received 2 PRBC + Bakri balloon Hemoglobin this AM is 7.0 pt is asymptomatic. BP is stable and HR is 82 discussed transfusion of 1 more unit vrs expectant management pt will ambulate and see how she feels and may agree to additional RBC unit pt is agreeable to IV iron Subjective Review of Systems All systems reviewed & are unremarkable except as noted in HPI & below Physical Exam Constitutional WD/WN, vitals as above Eyes PERRL, conjunctivae normal, anicteric sclerae ENMT external ear and nose normal, oropharynx normal Neck trachea midline, no thyromegaly Respiratory normal respiratory effort, lungs clear to auscultation Cardiovascular RRR, no murmur, no edema Chest (Breasts) normal inspection/palpation of breasts Gastrointestinal (Abdomen) normal bowel sounds, soft, nontender, no hepatosplenomegaly Musculoskeletal no cyanosis or clubbing, extremities motor strength 5/5 Skin + incision (Incision clean,dry and intact) Neurologic patellar DTR's 2+ bilat, sensation intact Psychiatric A+Ox3, euthymic affect Genitourinary no vaginal lesions, no adnexal mass Lymphatic no cervical or axillary lymphadenopathy Results & Data ([facility]) Vital Signs (Past 12 Hours) Vital Signs Temp Pulse Resp BP Pulse Ox O2 Del Method 05/19/22 07:45 37.3 C 82 16 115/71 96 Room Air 05/19/22 04:32 36.9 C 78 18 128/83 Room Air
[2022-05-19] MEDS ORDERED: IRON SUCROSE 200 MG in 0.9 % SODIUM CHLORIDE 100 ML IV ONE (12:15)
--- NOTE | 2022-05-19 17:53 | Progress Note ---
Date of Service May 19, 2022 Assessment & Plan (1) hemorrhage: Plan: pt doing well after ambulation asymptomatic wishes to be discharged home Admission and Anticipated Discharge Date Admission Date: May 16, 2022 Results & Data ([facility]) Vital Signs (Past 12 Hours) Vital Signs Temp Pulse Resp BP Pulse Ox O2 Del Method 05/19/22 16:05 36.9 C 89 18 120/77 Room Air 05/19/22 11:40 36.8 C 82 18 129/82 98 Room Air 05/19/22 07:45 37.3 C 82 16 115/71 96 Room Air
[2022-05-19] MEDS ORDERED: bisacodyL 5 MG TABEC PO SCH (20:00)
== END 2022-05-19 19:40 | disposition home or self-care (01) | DRG 768 ==
LOC: OPB 14:45 → 4S1 14:48 → 1E 05-17 20:49 → 4S1 05-18 11:15 → 4E2 05-18 20:28

== ENCOUNTER 2024-04-10 06:00 | Inpatient (IN) ==
--- OUTSIDE RECORDS SUMMARY | 2024-04-10 08:11 | External Medical Summary | Summary of Care ---
Author Name Unknown Organization [facility] Address [address] [facility] [place] [address] Phone [phone] Care Team Providers Care Dinker Name Role Phone Yadi Jaffe MD Primary Care Provider Reason for Visit * Reason Comments Return Visit Encounter Details Date Type Department Care Team (Late st Contact Info) Description 03/27/2024 8:30 AM EST Office Visit Gynecology/Obstetric [facility] [address] [place] [address] Kael Zarco MD [address] [place] [phone] History of placenta accreta*; High-risk in third trimester; History of hemorrhage; Family history of congenital heart defect; Antepartum anemia complicating Allergies No known active allergiesdocumented as of this encounter (statuses as of 03/27/2024) Medications 28-0.8 MG Oral Tablet Take by mouth . Active Iron-Vitamin C 65-125 MG Oral Tablet (Vitron C)Indications:Ant epartum anemia complicating Take 1 Tablet by mouth in the morning and 1 Tablet before bedtime. 60 Tablet 3 4 Active documented as of this encounter (statuses as of 03/27/2024) Active Problems Problem Noted Date Diagnosed Date Antepartum anemia complicating 024 Family history of congenital heart defect 2023 Overview (10/22/2023): Daughter product of IVF, with small VSD, did not require surgery. No other famhx of CHD. . In patients with this family history we recommend an anatomy survey with Maternal Medicine at 18-20 weeks gestation and echocardiogram with Maternal medicine at 22-24 weeks gestation. Assessment & Plan (11/22/2023 10:12 AM EDT): She presents for a anatomy survey and echocardiogram secondary to a family history of CHD (daughter with VSD). Her last was complicated by hemorrhage and concern for placenta accreta. Labs reviewed: -- cffDNA low risk for aneuploidy We reviewed the results of today's ultrasound. The estimated weight is appropriate for gestational age. The visualized anatomy is unremarkable in appearance. There are no cardiac abnormalities appreciated. The amniotic fluid amount appears normal. We discussed that ultrasound is not able to identify all anomalies, but it is reassuring that no anomalies were seen today. We reviewed limitation of echocardiography in detecting all forms of CHD. The placenta is right lateral/fundal. There are no features of placenta accreta appreciated at this time. Assessment & Plan (10/09/2023 9:51 AM EDT): DISCUSSION: 1. Discussed that family history of congenital cardiac defect in a first degree relative of the fetus (mother of the baby, father of the baby or a full sibling of the baby) increases the risk of cardiac defect in this to approximately 4-10%. CONSIDERATIONS: 1. In patients with this family history we recommend an anatomy survey with Maternal Medicine at 18-20 weeks gestation and echocardiogram with Maternal medicine at 22-24 weeks gestation. History of hemorrhage 10/08/2023 Assessment & Plan (10/09/2023 9:52 AM EDT): -Reviewed increased risk of PPH in future pregnancies. High-risk 10/01/2023 History of anemia 08/21/2023 History of placenta accreta 08/21/2023 Overview (10/09/2023): -History of possible placenta accreta 05/17/2022 - 05/17/2022 with subsuquent post hemmorrhage of approximately 3 liters. Required D&C with Bakri balloon placement. -Placenta delivered in fragments and pieces -Had MRI 6 weeks indicating possible accreta. BHCG was negative at that time and case was discussed with onc who did not advise methotrexate. Patient had a subsequent ultrasound that was unremarkable. Assessment & Plan (10/09/2023 8:58 AM EDT): -Did review a possible recurrence risk as high as 30% and plans for hysterectomy with all associate morbidity/mortality in that instance. We discussed higher likelihood of miscarriage, vaginal bleeding in , and delivery. -Recommend anatomy ultrasound at 19-20 weeks with MFM. -Recommend follow up ultrasound around 34 weeks to evaluate placenta. Estimated Date of Delivery Comme nts Yes 04/08/2024 Based on last me nstrual period of 07/03/2023 (Exact Date) documented as of this encounter (statuses as of 03/27/2024) Resolved Problems Problem Noted Date Diagnosed Date Resolved Date test positive 08/21/2023 0805/2023 Encounter for preconception consultation 07/16/2022 10/08/2023 Overview (07/31/2022): Images from the original note were not included. -Recent history of possible placenta accreta 05/17/2022 - 05/17/2022 with subsuquent post hemmorrhage of approximately 3 liters. Required D&C with Richard balloon placement. -Placenta delivered in fragments and pieces - 6-week MRI: Assessment & Plan (07/31/2022 4:21 PM EDT): See placenta accreta. Hemorrhagic shock 07/02/2022 07/31/2022 hemorrhage 07/02/20222023 resulting from in- vitro fertilization 07/02/2022 07/31/2022 cardiac anomaly affect ing , antepartum 07/02/2022 07/31/2022 Placenta accreta 07/02/2022 10/08/2023 Overview (10/22/2023): -Concern at time of delivery, -Noted 6 week on MRI Met with MFM . MFM consult placed: -Did review a possible recurrence risk as high as 30% and plans for hysterectomy with all associate morbidity/mortality in that instance. We discussed higher likelihood of miscarriage, vaginal bleeding in , and delivery. -Recommend anatomy ultrasound at 19-20 weeks with MFM. -Recommend follow up ultrasound around 34 weeks to evaluate placenta. 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 There is little known about expectant & conservative mgt of PAS disorders -There are considerations to MTX therapy and compression sutures/devices but no prospective trials investigating one specific method and none that would reflect the mgt of delayed diagnosis with a small portion PAS that remains as seen in this case. -This is a unique finding that requires more information and close follow -up, but Given she is now >6weeks , would recommend against surgical mgt at this time and encouraged pt to continue to monitor for bleeding and signs of infection -> she denies any at this time. -Would recommend OB order hCG levels and trend weekly as needed and repeat pelvic ultrasound to assess uterine cavity and rule out hypervascularity -Will discuss with HAND COREMAKER-Oncology to see if referral is necessary -Pt at this time is not interested in future family planning, and desires mgt that is safest for her health -Did review a possible recurrence risk as high as 30% and plans for hysterectomy with all associate morbidity/mortality in that instance -> also discussed higher likelihood of miscarriage, vaginal bleeding in , and delivery. Antepartum anemia complicating 03/15/2022 06/26/2022 cardiac anomaly compli cating , antepartum 03/01/2022 06/26/2022 Overview (03/15/2022): 1. Small perimembranous VSD The heart findings are consistent with a small perimembranous VSD that may spontaneously get smaller or close in time. At this point there there is no aortic valve insufficiency and cardiac dysfunction. I expect benign clinical course and no cardiovascular symptoms or hemodynamic instability. This is discussed with patient. My recommendations are as follows Term vaginal delivery unless indicated otherwise Non urgent echocardiogram in nursery Follow up as needed , normal first 11/06/202106/16 resulting from in vitro fertilization 11/06/2021 06/26/2022 Overview (11/06/2021): RECOMMENDATIONS: Politely declines MFM referral . Recommend echocardiography by Maternal Medicine (MFM) at 22-24 weeks gestation for patients who have had in vitro fertilization (IVF). Consider growth u/s. NST weekly after 36w Endometrial polyp 07/04/2021 07/31/2022 documented as of this encounter (statuses as of 03/27/2024) Immunizations Name Administration Dates Next Due TDAP, Age 7 and older, IM (Adacel) 01/01/2018 documented as of this encounter Social History Tobacco Use Types Packs/Day Years Used Date Smoking Tobacco: Never Smokeless Tobacco: Never Alcohol Use Standard Drinks/Week Comments Not Currently 0 (1 standard drink = 0.6 oz pur e alcohol) social AUDIT-C Answer Date Recorded Frequency of Alcohol Consumption 4 or more times a week 10/23/2019 Average Number of Drinks Not on file 020 Frequency of Binge Drinking Not on file 09/2019 PHQ-2 Answer Date Recorded PHQ Adult Total Score 0 12/05/2021 Hunger Vital Sign Answer Date Recorded Within the past 12 months, y ou worried that your food would run out before you got the money to buy more. Never true 09/17/19 24 Within the past 12 months, t he food you bought just didn't last and you didn't have money to get more. Never true 09/17/2023 Tornado Depression Scale Answer Date Recorded Tornado Depression Scale Total 1 03/12/2024 The thought of harming myself has occurred to me . Never 03/12/2024 Childcare Answer Date Recorded Do you feel overwhelmed with taking care of a child, family member or friend? No 09/17/2023 Does your family need help f inding childcare? (Household - for ages 0-17 years) Not on file 09/17/2023 Clothing Answer Date Recorded Have you been unable to get clothing when it was really needed? No 09/17/2023 Is your family able to get c lothes or diapers when needed? (Household - for ages 0-17 years) Not on file 09/17/2023 Personal Safety Answer Date Recorded Do you feel unsafe or have concerns for your saf ety? No 09/17/2023 Do you have concerns for you r family's safety? (Household - for ages 0-17 years) Not on file 09/17/2023 Utilities Answer Date Recorded Do you have trouble paying y our heating, water, or electric bill? No 09/17/2023 Is your family able to pay t he heat, water, or electric bill? (Household - for ages 0-17 years) Not on file 09/17/2023 Does your family have access to good internet? (Household - for ages 0-17 years) Not on file 09/17/2023 Employment Status Answer Date Recorded Are you unemployed or without regular income? No 09/17/2023 Does the household have a re gular source of income? (Household - for ages 0-17 years) Not on file 09/17/2023 Social Connections Answer Date Recorded How often do you feel lonely or isolated from th ose around you? Never 09/17/2023 Financial Resource Strain Answer Date R ecorded Do you have any trouble payi ng for your medications, or do you think you might in the future? No 09/17/2023 Does your family have troubl e paying for medicine? (Household - for ages 0-17 years) Not on file 09/17/2023 Transportation Needs Answer Date Record ed Do you have trouble getting a ride to medical visits or work? (Adult - for ages 18 years and over) Not on file 09/17/2023 Does your family have a hard time getting a ride to doctors visits? (Household - for ages 0-17 years) Not on file 09/17/2023 Has lack of transportation k ept you from medical appointments, meetings, work, or from getting things needed for daily living? Check all that apply. No 09/17/2023 Do you (or your family) have trouble finding or paying for a ride (transportation)? (Household - for ages 0-17 years) Not on file 09/17/2023 Housing Stability Answer Date Recorded Do you currently live in a s helter or have no steady place to sleep at night? No 09/17/2023 Do you think you are at risk of becoming homeless? (Adult - for ages 18 years and over) Not on file 09/17/2023 Does your family worry about paying for your home or becoming homeless? (Household - for ages 0-17 years) Not on file 0 09/17/2023 Are you homeless or worried that you might be in the future? No 09/17/2023 Are you (or your family) moe eless or worried that you might be in the future? (Household - for ages 0-17 years) Not on file Food Insecurity Answer Date Recorded Do you need food for this week? No 09/17/2023 Are you able to get enough f ood for your family? (Household - for ages 0-17 years) Not on file 09/17/2023 Does your family need food t his week? (Household - for ages 0-17 years) Not on file 09/17/2023 Do you always have enough fo od for your family? (Household - for ages 0-17 years) Not on file 09/17/2023 Estimated Date of Delivery Comme nts Yes 04/08/2024 Based on last me nstrual period of 07/03/2023 (Exact Date) Sex and Gender Information Value Date Recorded Sex Assigned at Female 11/06/2021 2:04 PM EDT Legal Sex Female 4:25 PM EST Gender Identity Female 11/06/2021 2:04 PM EDT Sexual Orientation Straight 11/06/2021 2: 04 PM EDT Occupation Industry Job Start Date Job End Date Not on file Not on file Not on file Not on file documented as of this encounter Last Filed Vital Signs Vital Sign Reading Time Taken Comments Blood Pressure 100/60 03/27/2024 8:33 AM EST Pulse - - Temperature - - Respiratory Rate - - Oxygen Saturation - - Inhaled Oxygen Concentration - - Weight 82.1 kg (181 lb) 03/27/2024 8:33 AM EST Height 165.1 cm (5' 5") 03/27/2024 8:33 AM EST Body Mass Index 30.12 03/27/2024 8:33 AM EST documented in this encounter Progress Notes * Kael Zarco MD - 03/27/2024 9:09 AM EST Pt doing well No complaints RTC 1 week * Magaly Alfaro LPN - 03/27/2024 8:33 AM EST [id number] Denies any concerns documented in this encounter Plan of Treatment Upcoming Encounters Date Type Department Care Team (Late st Contact Info) Description 04/01/2024 8:30 AM EST Office Visit Gynecology/Obstetrics Alley Mcghee [address] [place] [id number] Herminia Dorado CRNP [address] [place] [address] 04/08/2024 8:00 AM EST Office Visit Gynecology/Obstetrics Giancarlohelena Mcghee [address] [place] [address] Nina Monk CRNP [address] [place] [phone] Health Maintenance Due Date Last Done Comments Hepatitis B Vaccine (1 of 3 - 19+ 3-dose series) 02/21/2012 Depression Screening 12/05/2022 12/05/2021 HPV/Co-Test 2023 COVID-19 Vaccine (1 - 2023-2 5 season) 2023 Influenza Vaccine (FLU shot) (#1) 2023 Cervical Cancer Screening 11/06/2024 Pap Smear 11/06/2024 11/06/2021 DTap/Tdap Vaccines (2 - Td o r Tdap) 01/02/2028 01/01/2018 HPV (Gardasil) Vaccine Aged Out No lo nger eligible based on patient's age to complete this topic MENINGOCOCCAL (MENACTRA/MENVEO) Aged Out No longer eligible based on patient's age to complete this topic Pneumococcal Vaccine: Pediat rics (0 to 5 Years) and At-Risk Patients (6 to 18 Years and 19+ Years) Aged Out No longer eligible b ased on patient's age to complete this topic documented as of this encounter Goals Goal Patient Goal Type Associated Problems Recent Progress Patient-Stated? Author Reminders Care Plan OB Reminders No Mychart, Provider documented as of this encounter Medical Devices Not on filedocumented as of this encounter Visit Diagnoses Diagnosis History of placenta accreta- Primary History of hemorrhage Family history of congenital heart defect Family history of congenital anomalies 14 weeks gestation of state, incidental Family history of congenital heart defect- Primary Family history of congenital anomalies History of placenta accreta History of hemorrhage 20 weeks gestation of state, incidental Other specified related conditions, unspecified trimester History of placenta accreta- Primary High-risk in third trimester History of hemorrhage Family history of congenital heart defect Family history of congenital anomalies Antepartum anemia complicating Anemia, antepartum documented in this encounter Additional Health Concerns Active Problems Noted Date Diagnosed Date OB Reminders 10/02/2023 documented as of this encounter Advance Directives * Full Code (Latest Code Status on File) Date Activated Date Inactivated Comments 07/04/2021 3:50 PM 07/04/2021 9:36 PM This order r eflects the patients wishes and were consensually agreed upon. Question Answer Comments Discussion of Advance Directives occurred with: Not Discussed * Full Code Date Activated Date Inactivated Comments 07/04/2021 3:48 PM 07/04/2021 3:50 PM This order r eflects the patients wishes and were consensually agreed upon. Question Answer Comments Discussion of Advance Directives occurred with: Not Discussed Care Teams Dinker Relationship Specialty Start Date End Date Yadi aJffe MD [address] [place] [phone] PCP - General Internal Medicine 10/26/20 documented as of this encounter
--- OUTSIDE RECORDS SUMMARY | 2024-04-10 08:11 | External Medical Summary | Summary of Care ---
Author Name Unknown Organization [facility] Address [address] [facility] [place] [address] Phone [phone] Care Team Providers Care Mixer Whipped Topping Name Role Phone Yadi Jaffe MD Primary Care Provider Reason for Visit * Reason Comments Return Visit Encounter Details Date Type Department Care Team (Late st Contact Info) Description 03/12/2024 1:30 PM EST Office Visit Gynecology/Obstetric s [facility] [address] [place] [address] Tamanna Light PA-C [address] [place] [phone] High-risk in third trimester*; History of placenta accreta; History of hemorrhage; Family history of congenital heart defect; Antepartum anemia complicating Allergies No known active allergiesdocumented as of this encounter (statuses as of 03/12/2024) Medications 28-0.8 MG Oral Tablet Take by mouth . Active Iron-Vitamin C 65-125 MG Oral Tablet (Vitron C)Indications:Ant epartum anemia complicating Take 1 Tablet by mouth in the morning and 1 Tablet before bedtime. 60 Tablet 3 4 Active documented as of this encounter (statuses as of 03/12/2024) Active Problems Problem Noted Date Diagnosed Date [...] as of this encounter (statuses as of 03/12/2024) Resolved Problems Problem Noted Date Diagnosed Date Resolved Date test positive 08/21/202310/16 Encounter for preconception consultation 07/16/2022 10/08/2023 Overview [...] and rule out hypervascularity -Will discuss with AQUATICS DIRECTOR-Oncology to see if referral is necessary -Pt [...] as of this encounter (statuses as of 03/12/2024) Immunizations Name Administration Dates Next Due TDAP, [...] money to get more. Never true 09/17/2023 F[place] Depression Scale Answer Date Recorded [place] Depression Scale Total 0 10/01/2023 The thought of harming myself has occurred to me . Never 10/01/2023 Childcare Answer Date Recorded Do you feel [...] Reading Time Taken Comments Blood Pressure 100/60 03/12/2024 1:21 PM EST Pulse - - Temperature - - Respiratory Rate - - Oxygen Saturation - - Inhaled Oxygen Concentration - - Weight 82.6 kg (182 lb) 03/12/2024 1:21 PM EST Height - - Body Mass Index 30.29 09/24/2023 12:37 PM EDT documented in this encounter Progress Notes * Tamanna Light PA-C - 03/12/2024 1:31 PM EST Kylie Agosto is a 29 year old female here for her routine OB appointment at 36w1d Her Estimated Date of Delivery: 04/08/24 REVIEW OF SYSTEMS She affirms movement. Denies vaginal bleeding, LOF, contractions. F[place]on Depression Scale F[place]on Depression Scale Total: (Patient-Rptd) 1 [place]on suicide question and score: Score of 3 = Yes, quite often. Score of 2 = Sometimes. Score of 1 = Hardly ever The thought of harming myself has occurred to me.: (Patient-Rptd) 0 PHYSICAL EXAM Filed Vitals: 03/12/24 1321 BP: 100/60 Weight: 82.6 kg (182 lb) +FHT 120s-130s Fundal height 35 cm Position: cephalic GBS swab collected. Makeup Editor Documentation Patient offered chief mate and accepted. Name of chief mate: Paulette Thomas LPN. ASSESSMENT/PLAN High-risk in third trimester (Primary) - GROUP B STREP CULTURE/PCR History of placenta accreta History of hemorrhage Family history of congenital heart defect Antepartum anemia complicating Supervision of - GBS swab collected today - labor precautions and kick counts reviewed RTO in 1 week Tamanna iLght PA-C 03/12/2024 documented in this encounter Plan of Treatment Pending Results Name Type Priority Associated Diagnoses Date /Time GROUP B STREP CULTURE/PCR Lab Routine High-risk in third trimester 03/12/2024 1:49 PM EST Health Maintenance Due Date Last Done Comments [...] Author Reminders Care Plan OB Reminders No Opheliahart, Provider documented as of this encounter Medical [...] incidental Other specified related conditions, unspecified trimester High-risk in third trimester- Primary History of placenta accreta History of hemorrhage Family history of congenital [...] Directives occurred with: Not Discussed Care Teams Mixer Whipped Topping Relationship Specialty Start Date End Date Yadi Jaffe MD [address] [facility] [place] [address] PCP - General Internal Medicine 10/26/20 documented as of this encounter
--- OUTSIDE RECORDS SUMMARY | 2024-04-10 08:11 | External Medical Summary ---
Author Name Unknown Address Unknown Organization K01:[facility] [address] [place] [address] Laboratory Report Ordering Provider Test Date Status SHAHLANIMESH 03/12/2024 13:49:55 Final Observation Date Value Abnormality Reference (Units ) Status Streptococcus agalactiae DNA [Presence] in Specimen by LEATHA with probe detection 03/12/2024 13:49:55 Negative Negative Final No Group B Streptococcus det ected by culture-enhanced PCR (amplified probe). GBS GBSCT - [facility] 03/12/2024 13:49:55 0.0 Final GBS SPCCT - [facility] 03/12/2024 13:49:55 30.6 Final Performing Location [facility] [place] [address] [place] [address]
--- OUTSIDE RECORDS SUMMARY | 2024-04-10 08:11 | External Medical Summary | Summary of Care ---
Author Name Unknown Organization [facility] Address [address] [facility] [place] [address] Phone [phone] Care Team Providers Care Director Of Strategic Sourcing Name Role Phone Yadi Jaffe MD Primary Care Provider Reason for Visit * Reason Comments Return Visit Encounter Details Date Type Department Care Team (Late st Contact Info) Description 04/01/2024 8:30 AM EST Office Visit Gynecology/Obstetric s [facility] [address] [place] [address] Herminia Dorado CRNP [address] [place] [address] High-risk in third trimester*; History of placenta accreta; History of hemorrhage; Family history of congenital heart defect; Antepartum anemia complicating Allergies No known active allergiesdocumented as of this encounter (statuses as of 04/01/2024) Medications 28-0.8 MG Oral Tablet Take by mouth . Active Iron-Vitamin C 65-125 MG Oral Tablet (Vitron C)Indications:Ant epartum anemia complicating Take 1 Tablet by mouth in the morning and 1 Tablet before bedtime. 60 Tablet 3 4 Active documented as of this encounter (statuses as of 04/01/2024) Active Problems Problem Noted Date Diagnosed Date [...] as of this encounter (statuses as of 04/01/2024) Resolved Problems Problem Noted Date Diagnosed Date [...] and rule out hypervascularity -Will discuss with INDUSTRIAL CLEANER-Oncology to see if referral is necessary -Pt [...] as of this encounter (statuses as of 04/01/2024) Immunizations Name Administration Dates Next Due TDAP, [...] money to get more. Never true 09/17/2023 [place] Depression Scale Answer Date Recorded [place] Depression Scale Total 1 03/12/2024 The thought [...] Sign Reading Time Taken Comments Blood Pressure 98/60 04/01/2024 8:25 AM EST Pulse - - Temperature - - Respiratory Rate - - Oxygen Saturation - - Inhaled Oxygen Concentration - - Weight 83 kg (183 lb) 04/01/2024 8:25 AM EST Height - - Body Mass Index 30.45 03/27/2024 8:33 AM EST documented in this encounter Progress Notes * Herminia Dorado CRNP - 04/01/2024 8:29 AM EST 39w0d Good movement. Denies ctx, leaking, bleeding. Agreeable to scheduling post-dates IOL. Call office with decreased FM, LOF, signs of labor. 1 week return MAGUI Schmidt * Paulette Thomas LPN - 04/01/2024 8:25 AM EST 39w0d Denies vaginal bleeding/rom + movement documented in this encounter Plan of Treatment Upcoming Encounters Date Type Department Care Team (Late st Contact Info) Description 04/08/2024 8:00 AM EST Office Visit Gynecology/Obstetrics [facility] [address] [place] [address] Nina Monk CRNP [address] [place] [address] Health Maintenance Due Date Last Done Comments [...] Directives occurred with: Not Discussed Care Teams Director Of Strategic Sourcing Relationship Specialty Start Date End Date Yadi Jaffe MD [address] [place] [address] PCP - General Internal Medicine 10/26/20 documented as of this encounter
--- OUTSIDE RECORDS SUMMARY | 2024-04-10 08:11 | External Medical Summary | Summary of Care ---
Author Name Unknown Organization [facility] Address [address] [place] [address] Phone [phone] Care Team Providers Care Speech Language Pathologist Assistant Name Role Phone Yadi Jaffe MD Primary Care Provider Encounter Details Date Type Department Care Team (Late st Contact Info) Description 02/27/2024 8:00 AM EST Office Visit [facility] Obstetrics Maternal Medicine, [facility] [address] [facility] [place] [address] Ирина Terry, DO [address] [place], [place] [id number] History of placenta accreta* Allergies No known active allergiesdocumented as of this encounter (statuses as of 02/28/2024) Medications 28-0.8 MG Oral Tablet Take by mouth . Active Iron-Vitamin C 65-125 MG Oral Tablet (Vitron C)Indications:Ant epartum anemia complicating Take 1 Tablet by mouth in the morning and 1 Tablet before bedtime. 60 Tablet 3 4 Active documented as of this encounter (statuses as of 02/28/2024) Active Problems Problem Noted Date Diagnosed Date [...] as of this encounter (statuses as of 02/28/2024) Resolved Problems Problem Noted Date Diagnosed Date [...] and rule out hypervascularity -Will discuss with STRAPPER OPERATOR-Oncology to see if referral is necessary -Pt [...] as of this encounter (statuses as of 02/28/2024) Immunizations Name Administration Dates Next Due TDAP, [...] money to get more. Never true 09/17/2023 [place] Depression Scale Answer Date Recorded [place] Depression Scale Total 0 10/01/2023 The thought [...] 09/17/2023 Does the household have a re lar source of income? (Household - for ages [...] on file documented as of this encounter Progress Notes * Ирина Terry DO - 02/27/2024 9:30 AM EST Kylie presented today at 34w1d for an ultrasound for the following indications: History of placenta accreta Ultrasound summary: Patient presented at 34w 1d for growth assessment. Normal growth with EFW 2058 g at 14%ile. Normal LATA at 15.1 cm. Cephalic presentation. No features of placenta accreta noted. I reviewed the ultrasound images. Kylie was given the opportunity to meet with me if she had anyquestions. Please refer to the ultrasound report for additional details about today's ultrasound examination. RECOMMENDATIONS: Follow up with MFM for ultrasound as clinically indicated. See prior formal MFM consultation note. Thank you for allowing us to participate in the care of this patient. Please call with any questions. Ирина Terry DO 02/27/2024 9:32 AM documented in this encounter Plan of Treatment Upcoming Encounters Date Type Department Care Team (Late st Contact Info) Description 03/12/2024 1:30 PM EST Office Visit Gynecology/Obstetrics [facility] [address] [place] [address] Tamanna Light PA-C [address] [place] [address] Health Maintenance Due Date Last Done Comments [...] 5 Years) and At-Risk Patients (6 to 64 Years) Aged Out No longer eligi ble based on patient's age to complete this [...] unspecified trimester History of placenta accreta- Primary documented in this encounter Additional Health Concerns [...] Directives occurred with: Not Discussed Care Teams Speech Language Pathologist Assistant Relationship Specialty Start Date End Date Yadi Jaffe MD [address] [place] [address] PCP - General Internal Medicine 10/26/20 documented as of this encounter
--- OUTSIDE RECORDS SUMMARY | 2024-04-10 08:11 | External Medical Summary | Summary of Care ---
Author Name Unknown Organization [facility] Address [address] [facility] [place] [address] Phone [phone] Care Team Providers Care Test Skein Winder Name Role Phone Yadi Jaffe MD Primary Care Provider Reason for Visit * Reason Onset Date Comments Test Results 03/16/2024 Encounter Details Date Type Department Care Team (Late st Contact Info) Description 03/16/2024 Telephone Gynecology/Obstetrics [facility] [address] [place] [address] Tamanna Light PA-C [address] [place] [address] Test Results Allergies No known active allergiesdocumented as of this encounter (statuses as of 03/16/2024) Medications 28-0.8 MG Oral Tablet Take by mouth . Active Iron-Vitamin C 65-125 MG Oral Tablet (Vitron C)Indications:Ant epartum anemia complicating Take 1 Tablet by mouth in the morning and 1 Tablet before bedtime. 60 Tablet 3 4 Active documented as of this encounter (statuses as of 03/16/2024) Active Problems Problem Noted Date Diagnosed Date [...] as of this encounter (statuses as of 03/16/2024) Resolved Problems Problem Noted Date Diagnosed Date [...] and rule out hypervascularity -Will discuss with CLERICAL ADJUDICATOR-Oncology to see if referral is necessary -Pt [...] as of this encounter (statuses as of 03/16/2024) Immunizations Name Administration Dates Next Due TDAP, [...] the money to buy more. Never true 07/02/20 24 Within the past 12 months, t he food you bought just didn't last and you didn't have money to get more. Never true 09/17/2023 [place] Depression Scale Answer Date Recorded [place] Depression Scale Total 1 03/12/2024 The thought [...] No 09/17/2023 Does the household have a [facility] source of income? (Household - for ages [...] on file documented as of this encounter Miscellaneous Notes * Telephone Encounter - Leyda Galindo LPN - 03/16/2024 8:17 AM EST ----- Message from Tamanna Light sent at 03/16/2024 8:10 AM EST ----- Please inform patient her GBS culture resulted negative. Thanks! Tamanna Light PA-C documented in this encounter Plan of Treatment Upcoming Encounters Date Type Department Care Team (Late st Contact Info) Description 03/19/2024 2:15 PM EST Office Visit Gynecology/Obstetrics [facility] [address] [place] [address] Tamanna Light PA-C [address] [place] [address] 03/27/2024 8:30 AM EST Office Visit Gynecology/Obstetrics [facility] [address] [place] [address] Kael Zarco MD [address] [place] [address] 04/01/2024 8:30 AM EST Office Visit Gynecology/Obstetrics [facility] [address] [place] [address] Herminia Dorado CRNP [address] [place] [address] 04/08/2024 8:00 AM EST Office Visit Gynecology/Obstetrics [facility] [address] [place] [address] Nina Monk CRNP [address] [place] [address] Health Maintenance Due Date Last Done Comments [...] Not on filedocumented as of this encounter Additional Health Concerns Active Problems [...] Directives occurred with: Not Discussed Care Teams Test Skein Winder Relationship Specialty Start Date End Date Yadi Jaffe MD [address] [place] [address] PCP - General Internal Medicine 10/26/20 documented as of this encounter
--- OUTSIDE RECORDS SUMMARY | 2024-04-10 08:11 | External Medical Summary | Summary of Care ---
Author Name Unknown Organization [facility] Address [address] [facility] [place] [address] Phone [phone] Care Team Providers Care Conveyor System Dispatcher Name Role Phone Yadi Jaffe MD Primary Care Provider Reason for Visit * Reason Comments Return Visit Encounter Details Date Type Department Care Team (Late st Contact Info) Description 03/12/2024 1:30 PM EST Office Visit Gynecology/Obstetric s [facility] [address] [place] [address] Tamanna Light PA-C [address] [place] [address] High-risk in third trimester*; History of placenta [...] and rule out hypervascularity -Will discuss with PRINTED CIRCUIT BOARD PANELS PLATER-Oncology to see if referral is necessary -Pt [...] money to get more. Never true 09/17/2023 [place] Depression Scale Answer Date Recorded [place] Depression Scale Total 1 03/12/2024 The thought [...] affirms movement. Denies vaginal bleeding, LOF, contractions. [place] Depression Scale [place] Depression Scale Total: (Patient-Rptd) 1 [place] suicide question and score: Score of 3 = Yes, quite often. Score of 2 = Sometimes. Score of 1 = Hardly ever The thought of harming myself has occurred to me.: (Patient-Rptd) 0 PHYSICAL EXAM Filed Vitals: 03/12/24 1321 BP: 100/60 Weight: 82.6 kg (182 lb) +FHT 120s-130s Fundal height 35 cm Position: cephalic GBS swab collected. Plc Engineer Documentation Patient offered prosthetics lab technician and accepted. Name of prosthetics lab technician: Paulette Thomas LPN. ASSESSMENT/PLAN High-risk in third trimester (Primary) - GROUP B STREP CULTURE/PCR History of placenta accreta History of hemorrhage Family history of congenital heart defect Antepartum anemia complicating Supervision of - GBS swab collected today - labor precautions and kick counts reviewed RTO in 1 week Tamanna Light PA-C 03/12/2024 documented in this encounter Plan of Treatment Upcoming Encounters Date Type Department Care Team (Late st Contact Info) Description 03/19/2024 2:15 PM EST Office Visit Gynecology/Obstetrics [facility] [address] [place] [address] Tamanna Light PA-C [address] [place] [address] 03/27/2024 8:30 AM EST Office Visit Gynecology/Obstetrics [facility] [address] [place] [address] Kael Zarco MD [address] [place] [address] 04/01/2024 8:30 AM EST Office Visit Gynecology/Obstetrics [facility] [address] [place] [address] Herminia Dorado CRNP [address] [place] [address] 04/08/2024 8:00 AM EST Office Visit Gynecology/Obstetrics [facility] [address] [place] [address] Nina Monk CRNP [address] [place] [address] Pending Results Name Type Priority Associated Diagnoses [...] Directives occurred with: Not Discussed Care Teams Conveyor System Dispatcher Relationship Specialty Start Date End Date Yadi Jaffe MD [address] [place] [address] PCP - General Internal Medicine 10/26/20 documented as of this encounter
--- OUTSIDE RECORDS SUMMARY | 2024-04-10 08:11 | External Medical Summary | Summary of Care ---
Author Name Unknown Organization [facility] Address [address] [facility] [place] [address] Phone [phone] Care Team Providers Care Butter Wrapper Name Role Phone Yadi Jaffe MD Primary Care Provider Reason for Visit * Reason Comments Return Visit Encounter Details Date Type Department Care Team (Late st Contact Info) Description 03/19/2024 2:15 PM EST Office Visit Gynecology/Obstetric s [facility] [address] [place] [address] Tamanna Light PA-C [address] [place] [address] High-risk in third trimester*; History of placenta accreta; History of hemorrhage; Family history of congenital heart defect; Antepartum anemia complicating Allergies No known active allergiesdocumented as of this encounter (statuses as of 03/19/2024) Medications 28-0.8 MG Oral Tablet Take by mouth . Active Iron-Vitamin C 65-125 MG Oral Tablet (Vitron C)Indications:Ant epartum anemia complicating Take 1 Tablet by mouth in the morning and 1 Tablet before bedtime. 60 Tablet 3 4 Active documented as of this encounter (statuses as of 03/19/2024) Active Problems Problem Noted Date Diagnosed Date [...] as of this encounter (statuses as of 03/19/2024) Resolved Problems Problem Noted Date Diagnosed Date [...] and rule out hypervascularity -Will discuss with HOT MILL ROLLER-Oncology to see if referral is necessary -Pt [...] as of this encounter (statuses as of 03/19/2024) Immunizations Name Administration Dates Next Due TDAP, [...] money to get more. Never true 09/17/2023 [place] Depression Scale Answer Date Recorded [place] Depression Scale Total 1 03/12/2024 The thought [...] Sign Reading Time Taken Comments Blood Pressure 102/62 03/19/2024 2:22 PM EST Pulse - - Temperature - - Respiratory Rate - - Oxygen Saturation - - Inhaled Oxygen Concentration - - Weight 82.1 kg (181 lb) 03/19/2024 2:22 PM EST Height - - Body Mass Index 30.12 09/24/2023 12:37 PM EDT documented in this encounter Progress Notes * Shantelle Alamo CMA - 03/19/2024 2:22 PM EST 37w1d Denies any concerns * Tamanna Light PA-C - 03/19/2024 2:15 PM EST Kylie Agosto is a 29 year old female here for her routine OB appointment at 37w1d Her Estimated Date of Delivery: 04/08/24 REVIEW OF SYSTEMS She affirms movement. Denies vaginal bleeding, LOF. + irregular, BH contractions. PHYSICAL EXAM Filed Vitals: 03/19/24 1422 BP: 102/62 Weight: 82.1 kg (181 lb) +FHT 150s Fundal height 37 cm ASSESSMENT/PLAN High-risk in third trimester (Primary) History of placenta accreta History of hemorrhage Family history of congenital heart defect Antepartum anemia complicating Supervision of - labor precautions and kick counts reviewed RTO in 1 week Tamanna Light PA-C 03/19/2024 documented in this encounter Plan of Treatment Upcoming Encounters Date Type Department Care Team (Late st Contact Info) Description 03/27/2024 8:30 AM EST Office Visit Gynecology/Obstetrics [address] [place] [address] Kael Zarco MD [address] [place] [address] 04/01/2024 8:30 AM EST Office Visit Gynecology/Obstetrics [facility] [address] [place] [address] Herminia Dorado CRNP [address] [place] [address] 04/08/2024 8:00 AM EST Office Visit Gynecology/Obstetrics [facility] [address] [place] [address] Nina Monk CRNP [address] [place] [address] Health Maintenance Due Date Last Done Comments [...] Directives occurred with: Not Discussed Care Teams Butter Wrapper Relationship Specialty Start Date End Date Yadi Jaffe MD [address] [place] [address] PCP - General Internal Medicine 10/26/20 documented as of this encounter
--- OUTSIDE RECORDS SUMMARY | 2024-04-10 08:12 | External Medical Summary ---
Author Name Unknown Address Unknown Organization [id number]:LABORATORY [facility] [place] - [facility] [place] [address] Laboratory Report Ordering Provider Test Date Status JADEN GONZALES 01/08/2024 08:56:18 Final Observation Date Value Abnormality Reference (Units ) Status Retic, % (auto) 01/08/2024 08:56:18 1.84 0.80-1.90 (%) Final Reticulocytes, Absolute 01/08/2024 08:56:18 69.2 31.3-100.1 (K/uL) Final Reticulocyte fraction, immature 01/08/2024 08:56:18 21.8 Above high normal 2.5-20.6 (%) Final Reticulocyte HGB 01/08/2024 08:56:18 29.5 Below low normal 29.7-37.4 (pg) Final Performing Location LABORATORY [facility] - [facility] [place] [address]
--- OUTSIDE RECORDS SUMMARY | 2024-04-10 08:12 | External Medical Summary | Summary of Care ---
Author Name Unknown Organization [facility] Address [address] [place] [address] Phone [phone] Care Team Providers Care Technical Business Analyst Name Role Phone Yadi Jaffe MD Primary Care Provider Encounter Details Date Type Department Care Team (Late st Contact Info) Description 02/27/2024 8:00 AM EST Office Visit Geographic Information Systems Director Obstetrics Maternal Medicine, [facility] [address] [facility] [place] [address] Ирина Terry, DO [address] [place], [place] [id number] History of placenta accreta* Allergies No known active allergiesdocumented as of this encounter (statuses as of 02/27/2024) Medications 28-0.8 MG Oral Tablet Take by mouth . Active Iron-Vitamin C 65-125 MG Oral Tablet (Vitron C)Indications:Ant epartum anemia complicating Take 1 Tablet by mouth in the morning and 1 Tablet before bedtime. 60 Tablet 3 4 Active documented as of this encounter (statuses as of 02/27/2024) Active Problems Problem Noted Date Diagnosed Date [...] as of this encounter (statuses as of 02/27/2024) Resolved Problems Problem Noted Date Diagnosed Date [...] and rule out hypervascularity -Will discuss with SUPERINTENDENT TERMINAL-Oncology to see if referral is necessary -Pt [...] as of this encounter (statuses as of 02/27/2024) Immunizations Name Administration Dates Next Due TDAP, [...] money to get more. Never true 09/17/2023 [place] Depression Scale Answer Date Recorded [place] Depression Scale Total 0 10/01/2023 The thought [...] 03/12/2024 1:30 PM EST Office Visit Gynecology/Obstetrics [facility] [address] [place] [address] Tamanna Light PA-C [address] [place] [address] Health Maintenance Due Date Last Done Comments [...] Directives occurred with: Not Discussed Care Teams Technical Business Analyst Relationship Specialty Start Date End Date Yadi Jaffe MD [address] [place] [address] PCP - General Internal Medicine 10/26/20 documented as of this encounter
--- OUTSIDE RECORDS SUMMARY | 2024-04-10 08:12 | External Medical Summary ---
Author Name Unknown Address Unknown Organization K01:[place] [facility] [place] [address] [place] [address] Laboratory Report Ordering Provider Test Date Status JADEN GONZALES 01/08/2024 08:56:18 Final Observation Date Value Abnormality Reference (Units ) Status Iron 01/08/2024 08:56:18 46 33-151 (ug/dL) Final Iron-binding capacity 01/08/2024 08:56:18 433 Above high normal 250-425 (ug/dL) Final Transferrin Sat % 01/08/2024 08:56:18 11 Below low normal 15-55 (%) Final Performing Location [place] [facility] [address] [place] [address]
--- OUTSIDE RECORDS SUMMARY | 2024-04-10 08:12 | External Medical Summary ---
Author Name Unknown Address Unknown Organization [id number] [address] [place] [address] Laboratory Report Ordering Provider Test Date Status ANISA SANTIAGO 02/11/2024 08:15:00 Final Observation Date Value Abnormality Reference (Units ) Status WBC, Total 02/11/2024 08:15:00 7.83 4.00-10.8 0 (K/uL) Final RBC 02/11/2024 08:15:00 4.01 3.85-5.15 (M/uL) Final Hemoglobin 02/11/2024 08:15:00 11.4 Below low normal 12 .0-15.3 (g/dL) Final HCT 02/11/2024 08:15:00 35.0 Below low normal 36. 0-45.2 (%) Final MCV 02/11/2024 08:15:00 87.3 81.5-97.5 (fL) Final MCH 02/11/2024 08:15:00 28.4 27.0-34.0 (pg) Final MCHC 02/11/2024 08:15:00 32.6 32.0-36.0 (g/dL) Final RDW 02/11/2024 08:15:00 14.9 11.5-15.5 (%) Final Platelets 02/11/2024 08:15:00 173 140-400 (K /uL) Final MPV 02/11/2024 08:15:00 11.4 6.6-11.1 ( fL) Final Performing Location [facility] - [address] [place] [address]
--- OUTSIDE RECORDS SUMMARY | 2024-04-10 08:12 | External Medical Summary ---
Author Name Unknown Address Unknown Organization [id number]:LABORATORY [facility] [place] - [address] [facility] [place] [address] Laboratory Report Ordering Provider Test Date Status CHRISTIANBACKER 01/08/2024 08:56:18 Final Observation Date Value Abnormality Reference (Units ) Status SYNC LEUKOCYTES IN BLOOD BY AUTOMATED COUNT 01/08/2024 08:56:18 6.76 4.00-10.80 (K/uL) Final Segs 01/08/2024 08:56:18 73.6 40.0-75.0 (%) Final Lymphs % 01/08/2024 08:56:18 17.2 Below low normal 18.0-42.0 (%) Final Monos 01/08/2024 08:56:18 8.0 1.0-11.0 (%) Final Eosinophils 01/08/2024 08:56:18 0.7 0.0-6.0 (%) Final Basos 01/08/2024 08:56:18 0.1 0.0-2.0 (%) Final Immature Granulocyte, Percent 01/08/2024 08:56:18 0.4 0.0-2.0 (%) Final Absolute Segs 01/08/2024 08:56:18 4.97 1.80-7.70 (K/uL) Final Lymphs, absolute 01/08/2024 08:56:18 1.16 1.00-4.80 (K/ul) Final Monos, Abs 01/08/2024 08:56:18 0.54 0.00-1.10 (K/uL) Final Eos, Abs 01/08/2024 08:56:18 0.05 0.00-0.70 (K/uL) Final Basos, Abs 01/08/2024 08:56:18 0.01 0.00-0.20 (K/uL) Final Immature Granulocytes, Number 01/08/2024 08:56:18 0.03 0.00-0.20 (K/uL) Final Performing Location LABORATORY [facility] [place] - [address] [facility] [address]
--- OUTSIDE RECORDS SUMMARY | 2024-04-10 08:12 | External Medical Summary | Summary of Care ---
Author Name Unknown Organization [facility] Address [address] [facility] [place] [address] Phone [phone] Care Team Providers Care Manager Military Name Role Phone Yadi Jaffe MD Primary Care Provider Reason for Visit * Reason Comments Return Visit Encounter Details Date Type Department Care Team (Late st Contact Info) Description 01/08/2024 8:00 AM EDT Office Visit Gynecology/Obstetric s Alley Mcghee [address] [place] [address] Nina Monk CRNP [address] [place] [address] High-risk in third trimester*; History of placenta accreta; History of hemorrhage; Family history of congenital heart defect Allergies No known active allergiesdocumented as of this encounter (statuses as of 01/08/2024) Medications Medication Sig Dispensed Refills Start Date End Date Status 28-0.8 MG Oral Tablet Take by mouth . Active documented as of this encounter (statuses as of 01/08/2024) Active Problems Problem Noted Date Diagnosed Date Family history of congenital heart defect 2023 Overview: Daughter product of IVF, with small VSD, did not require surgery. No other famhx of CHD. . In patients with this family history we recommend an anatomy survey with Maternal Medicine at 18-20 weeks gestation and echocardiogram with Maternal medicine at 22-24 weeks gestation. Last Assessment & Plan: She presents for a anatomy survey and [...] of placenta accreta appreciated at this time. History of hemorrhage 10/08/2023 Last Assessment & Plan: -Reviewed increased risk of PPH in future pregnancies. High-risk 10/01/2023 History of anemia 08/21/2023 History of placenta accreta 08/21/2023 Overview: -History of possible placenta accreta 05/17/2022 - 05/17/2022 with subsuquent post hemmorrhage of approximately 3 liters. Required D&C with Bakri balloon placement. -Placenta delivered in fragments and pieces -Had MRI 6 weeks indicating possible accreta. BHCG was negative at that time and case was discussed with onc who did not advise methotrexate. Patient had a subsequent ultrasound that was unremarkable. Last Assessment & Plan: -Did review a possible recurrence risk as [...] as of this encounter (statuses as of 01/08/2024) Resolved Problems Problem Noted Date Diagnosed Date Resolved Date test positive 08/21/202310/16 Encounter for preconception consultation 07/16/2022 10/08/2023 Overview: Images from the original note were not included. -Recent history of possible placenta accreta 05/17/2022 - 05/17/2022 with subsuquent post hemmorrhage of approximately 3 liters. Required D&C with Richard balloon placement. -Placenta delivered in fragments and pieces - 6-week MRI: Last Assessment & Plan: See placenta accreta. Hemorrhagic shock 07/02/2022 07/31/2022 hemorrhage 07/02/20222023 resulting from in- vitro fertilization 07/02/2022 07/31/2022 cardiac anomaly affect ing , antepartum 07/02/2022 07/31/2022 Placenta accreta 07/02/2022 10/08/2023 Overview: -Concern at time of delivery, -Noted 6 [...] ultrasound around 34 weeks to evaluate placenta. Last Assessment & Plan: -Discussed at length hemorrhage and various causes [...] and rule out hypervascularity -Will discuss with MOUNTER-Oncology to see if referral is necessary -Pt [...] anomaly compli cating , antepartum 03/01/2022 06/26/2022 Overview: 1. Small perimembranous VSD The heart findings [...] resulting from in vitro fertilization 11/06/2021 06/26/2022 Overview: RECOMMENDATIONS: Politely declines MFM referral . Recommend echocardiography by Maternal Medicine (MFM) at 22-24 weeks gestation for patients who have had in vitro fertilization (IVF). Consider growth u/s. NST weekly after 36w Endometrial polyp 07/04/2021 07/31/2022 documented as of this encounter (statuses as of 01/08/2024) Immunizations Name Administration Dates Next Due TDAP, [...] money to get more. Never true 09/17/2023 [place] Depression Scale Answer Date Recorded [place] Depression Scale Total 0 10/01/2023 The thought [...] Assigned at Female 11/06/2021 2:04 PM EDT Gender Identity Female 11/06/2021 2:04 PM EDT Sexual Orientation Straight 11/06/2021 2: 04 PM EDT Job Start Date Occupation Industry Not on file Not on file Not on file documented as of this encounter Last Filed Vital Signs Vital Sign Reading Time Taken Comments Blood Pressure 106/60 01/08/2024 7:58 AM EDT Pulse - - Temperature - - Respiratory Rate - - Oxygen Saturation - - Inhaled Oxygen Concentration - - Weight 77.6 kg (171 lb) 01/08/2024 7:58 AM EDT Height - - Body Mass Index 28.46 09/24/2023 12:37 PM EDT documented in this encounter Progress Notes * Nina Monk CRNP - 01/08/2024 8:12 AM EDT 27w0d Complaints: occasional heartburn, relieved by Tums. Feeling well otherwise. Good FM. No contractions, bleeding, or LOF. Glucola today. Declines TDAP. MAGUI Jc * Shantelle Alamo CMA - 01/08/2024 7:58 AM EDT 27w0d Denies any concerns Declined TDAP documented in this encounter Plan of Treatment Upcoming Encounters Date Type Department Care Team (Late st Contact Info) Description 02/27/2024 8:00 AM EST Imaging Maternal Medicine Imaging, Umair Mcghee [address] [place] [phone] Health Maintenance Due Date Last Done Comments [...] as of this encounter Visit Diagnoses Diagnosis High-risk in third trimester- Primary History of placenta accreta History of hemorrhage Family history of congenital heart defect Family history of congenital anomalies documented in this encounter Additional Health Concerns [...] Directives occurred with: Not Discussed Care Teams Manager Military Relationship Specialty Start Date End Date Yadi Jaffe MD [address] [place] [id number] PCP - General Internal Medicine 10/26/20 documented as of this encounter
--- OUTSIDE RECORDS SUMMARY | 2024-04-10 08:12 | External Medical Summary | Summary of Care ---
Author Name Unknown Organization [facility] Address [address] [facility] [place] [address] Phone [phone] Care Team Providers Care Apprentice Plumber Name Role Phone Yadi Jaffe MD Primary Care Provider Reason for Visit * Reason Comments Return Visit Encounter Details Date Type Department Care Team (Late st Contact Info) Description 11/27/2023 8:00 AM EDT Office Visit Gynecology/Obstetric s Alley Mcghee [address] [place] [address] Nina Monk CRNP [address] [place] [address] History of placenta accreta*; High-risk in second trimester; History of hemorrhage; Family history of congenital heart defect Allergies No known active allergiesdocumented as of this encounter (statuses as of 11/27/2023) Medications Medication Sig Dispensed Refills Start Date End Date Status 28-0.8 MG Oral Tablet Take by mouth . Active documented as of this encounter (statuses as of 11/27/2023) Active Problems Problem Noted Date Diagnosed Date [...] as of this encounter (statuses as of 11/27/2023) Resolved Problems Problem Noted Date Diagnosed Date [...] and rule out hypervascularity -Will discuss with LABOR TRAINING MANAGER-Oncology to see if referral is necessary -Pt [...] as of this encounter (statuses as of 11/27/2023) Immunizations Name Administration Dates Next Due TDAP, [...] money to get more. Never true 09/17/2023 [place] Depression Scale Answer Date Recorded [place] Depression Scale Total 0 10/01/2023 The thought [...] Sign Reading Time Taken Comments Blood Pressure 96/58 11/27/2023 8:01 AM EDT Pulse - - Temperature - - Respiratory Rate - - Oxygen Saturation - - Inhaled Oxygen Concentration - - Weight 74.8 kg (164 lb 12.8 oz) 11/27/2023 8:01 AM EDT Height - - Body Mass Index 27.42 09/24/2023 12:37 PM EDT documented in this encounter Progress Notes * Nina Monk CRNP - 11/27/2023 8:11 AM EDT 21w Has ?bug bites on her neck which are very itchy. Unsure what she can use on this. Suggested hydrocortisone cream, if not improving should see PCP for evaluation and diagnosis. No other concerns. Feeling some FM. No bleeding. Had anatomy u/s and echo through MFM, all WNL. MAGUI Jc * Paulette Thomas LPN - 11/27/2023 8:00 AM EDT 21w0d Denies vaginal bleeding/rom + movement documented in this encounter Plan of Treatment Upcoming Encounters Date Type Department Care Team (Late st Contact Info) Description 12/25/2023 8:30 AM EDT Office Visit Gynecology/Obstetrics Alley Mcghee [address] [place] [address] BackerHerminia CRNP [address] [place] [address] 02/27/2024 8:00 AM EST Imaging Maternal Medicine Imaging, Umair Mcghee [address] [place] [phone] Health Maintenance Due Date Last Done Comments Hepatitis B Vaccine (1 of 3 - 19+ 3-dose series) 02/21/2012 Depression Screening 12/05/2022 12/05/2021 HPV/Co-Test 2023 COVID-19 Vaccine (1 - 2022-2 4 season) 2023 Influenza Vaccine (FLU shot) (#1) [...] Diagnoses Diagnosis History of placenta accreta- Primary High-risk in second trimester History of hemorrhage Family history of [...] Directives occurred with: Not Discussed Care Teams Apprentice Plumber Relationship Specialty Start Date End Date Yadi Jaffe MD [address] [place] [address] PCP - General Internal Medicine 10/26/20 documented as of this encounter
--- OUTSIDE RECORDS SUMMARY | 2024-04-10 08:12 | External Medical Summary | Summary of Care ---
Author Name Unknown Organization [facility] Address [address] [facility] [place] [address] Phone [phone] Care Team Providers Care Rod Puller And Coiler Name Role Phone Yadi Jaffe MD Primary Care Provider Reason for Visit * Reason Comments Return Visit Encounter Details Date Type Department Care Team (Late st Contact Info) Description 02/26/2024 8:00 AM EST Office Visit Gynecology/Obstetric s [facility] [address] [place] [address] Nina Monk CRNP [address] [place] [address] High-risk in third trimester*; History of placenta accreta; History of hemorrhage; Family history of congenital heart defect; Antepartum anemia complicating Allergies No known active allergiesdocumented as of this encounter (statuses as of 02/26/2024) Medications 28-0.8 MG Oral Tablet Take by mouth . Active Iron-Vitamin C 65-125 MG Oral Tablet (Vitron C)Indications:Ant epartum anemia complicating Take 1 Tablet by mouth in the morning and 1 Tablet before bedtime. 60 Tablet 3 4 Active documented as of this encounter (statuses as of 02/26/2024) Active Problems Problem Noted Date Diagnosed Date [...] as of this encounter (statuses as of 02/26/2024) Resolved Problems Problem Noted Date Diagnosed Date [...] and rule out hypervascularity -Will discuss with GENERAL OFFICE WORKER-Oncology to see if referral is necessary -Pt [...] as of this encounter (statuses as of 02/26/2024) Immunizations Name Administration Dates Next Due TDAP, [...] Frequency of Binge Drinking Not on file 0809/2019 PHQ-2 Answer Date Recorded PHQ Adult Total [...] money to get more. Never true 09/17/2023 [place] Depression Scale Answer Date Recorded [place] Depression Scale Total 0 10/01/2023 The thought [...] Sign Reading Time Taken Comments Blood Pressure 98/56 02/26/2024 7:59 AM EST Pulse - - Temperature - - Respiratory Rate - - Oxygen Saturation - - Inhaled Oxygen Concentration - - Weight 81.6 kg (180 lb) 02/26/2024 7:59 AM EST Height - - Body Mass Index 29.95 09/24/2023 12:37 PM EDT documented in this encounter Progress Notes * Nina Monk CRNP - 02/26/2024 8:14 AM EST 34w No concerns. Baby is active. No contractions, bleeding, LOF. Planning to breastfeed. Pills for contraception. Declines RSV. MAGUI Jc * Shantelle Alamo CMA - 02/26/2024 7:59 AM EST 34w0d Denies any concerns documented in this encounter Plan of Treatment Upcoming Encounters Date Type Department Care Team (Late st Contact Info) Description 02/27/2024 8:00 AM EST Imaging Maternal Medicine Imaging, Umair Blackburns [address] [place] [phone] 03/12/2024 1:30 PM EST Office Visit Gynecology/Obstetrics [facility] [address] [place] [address] Tamanna Light PA-C [address] [place] [address] Health Maintenance Due Date Last Done Comments [...] Directives occurred with: Not Discussed Care Teams Rod Puller And Coiler Relationship Specialty Start Date End Date Yadi Jaffe MD [address] [place] [address] PCP - General Internal Medicine 10/26/20 documented as of this encounter
--- OUTSIDE RECORDS SUMMARY | 2024-04-10 08:12 | External Medical Summary ---
Author Name Unknown Address Unknown Organization [id number]:[facility] [place] [address] [place] [address] Laboratory Report Ordering Provider Test Date Status JADEN GONZALES 01/08/2024 08:56:18 Final Observation Date Value Abnormality Reference (Units ) Status Treponema pallidum Ab [Presence] in Serum by Immunoassay 01/08/2024 08:56:18 Nonreactive Nonreactive Final No serologic evidence of syp hilis. No additional testing clinicially indicated at this time. Consider repeat testing in 2-4 weeks if acute or primary syphilis is suspected. Performing Location [facility] [place] [address] [place] [address]
--- OUTSIDE RECORDS SUMMARY | 2024-04-10 08:12 | External Medical Summary | Summary of Care ---
Author Name Unknown Organization [facility] Address [address] [facility] [place] [address] Phone [phone] Care Team Providers Care Sample Weaver Name Role Phone Yadi Jaffe MD Primary Care Provider Reason for Visit * Reason Comments Return Visit Encounter Details Date Type Department Care Team (Late st Contact Info) Description 01/27/2024 8:45 AM EST Office Visit Gynecology/Obstetric s [facility] [address] [place] [address] Herminia Dorado CRNP [address] [place] [address] High-risk in third trimester*; History of placenta accreta; History of hemorrhage; Family history of congenital heart defect; Antepartum anemia complicating Allergies No known active allergiesdocumented as of this encounter (statuses as of 01/27/2024) Medications 28-0.8 MG Oral Tablet Take by mouth . Active Iron-Vitamin C 65-125 MG Oral Tablet (Vitron C)Indications:Ant epartum anemia complicating Take 1 Tablet by mouth in the morning and 1 Tablet before bedtime. 60 Tablet 3 4 Active documented as of this encounter (statuses as of 01/27/2024) Active Problems Problem Noted Date Diagnosed Date [...] as of this encounter (statuses as of 01/27/2024) Resolved Problems Problem Noted Date Diagnosed Date [...] and rule out hypervascularity -Will discuss with CLOTH BOOKER-Oncology to see if referral is necessary -Pt [...] as of this encounter (statuses as of 01/27/2024) Immunizations Name Administration Dates Next Due TDAP, [...] money to get more. Never true 09/17/2023 [place] Depression Scale Answer Date Recorded [place] Depression Scale Total 0 10/01/2023 The thought [...] Reading Time Taken Comments Blood Pressure 96/58 01/27/2024 8:35 AM EST Pulse - - Temperature - - Respiratory Rate - - Oxygen Saturation - - Inhaled Oxygen Concentration - - Weight 78.5 kg (173 lb) 01/27/2024 8:35 AM EST Height - - Body Mass Index 28.79 09/24/2023 12:37 PM EDT documented in this encounter Progress Notes * Herminia Dorado CRNP - 01/27/2024 8:43 AM EST 29w5d Doing well. No ctx, leaking, bleeding. Good movement; discussed [facility] and when to call with concerns. Taking iron. F/u with MFM scheduled next month. 2 week return MAGUI Schmidt * Paulette Thomas LPN - 01/27/2024 8:35 AM EST 29w5d Denies vaginal bleeding/rom + movement No new concerns documented in this encounter Plan of Treatment Upcoming Encounters Date Type Department Care Team (Late st Contact Info) Description 02/11/2024 8:15 AM EST Office Visit Gynecology/Obstetrics Alley Mcghee [address] [place] [address] Nina Monk CRNP [address] [place] [address] 02/27/2024 8:00 AM EST Imaging Maternal Medicine Umair Stinson [address] [place] [phone] Health Maintenance [...] Directives occurred with: Not Discussed Care Teams Sample Weaver Relationship Specialty Start Date End Date Yadi Jaffe MD [address] [place] [address] PCP - General Internal Medicine 10/26/20 documented as of this encounter
--- OUTSIDE RECORDS SUMMARY | 2024-04-10 08:12 | External Medical Summary | Summary of Care ---
Author Name Unknown Organization [facility] Address [address] [facility] [place] [address] Phone [phone] Care Team Providers Care Cabinetmaker Apprentice Name Role Phone Yadi Jaffe MD Primary Care Provider Reason for Visit * Reason Comments Return Visit Encounter Details Date Type Department Care Team (Late st Contact Info) Description 12/25/2023 8:30 AM EDT Office Visit Gynecology/Obstetric s Alley Mcghee [address] [place] [address] Herminia Dorado CRNP [address] [place] [address] High-risk in second trimester*; History of placenta accreta; History of hemorrhage; Family history of congenital heart defect Allergies No known active allergiesdocumented as of this encounter (statuses as of 12/25/2023) Medications Medication Sig Dispensed Refills Start Date End Date Status 28-0.8 MG Oral Tablet Take by mouth . Active documented as of this encounter (statuses as of 12/25/2023) Active Problems Problem Noted Date Diagnosed Date [...] as of this encounter (statuses as of 12/25/2023) Resolved Problems Problem Noted Date Diagnosed Date [...] and rule out hypervascularity -Will discuss with MILK AND CREAM GRADER-Oncology to see if referral is necessary -Pt [...] as of this encounter (statuses as of 12/25/2023) Immunizations Name Administration Dates Next Due TDAP, [...] money to get more. Never true 09/17/2023 [place] Depression Scale Answer Date Recorded [place] Depression Scale Total 0 10/01/2023 The thought [...] Sign Reading Time Taken Comments Blood Pressure 102/60 12/25/2023 8:37 AM EDT Pulse - - Temperature - - Respiratory Rate - - Oxygen Saturation - - Inhaled Oxygen Concentration - - Weight 78.5 kg (173 lb) 12/25/2023 8:37 AM EDT Height - - Body Mass Index 28.79 09/24/2023 12:37 PM EDT documented in this encounter Progress Notes * Herminia Dorado CRNP - 12/25/2023 8:46 AM EDT 25w0d Baby moving; no ctx, leaking, bleeding. Due date letter provided for work. Discussed labs and Tdap at next visit, 2 week return. Call with questions/concerns. MAGUI Schmidt * Isabell Jones RN - 12/25/2023 8:38 AM EDT Glucose next visit. documented in this encounter Plan of Treatment Upcoming Encounters Date Type Department Care Team (Late st Contact Info) Description 01/08/2024 8:00 AM EDT Office Visit Gynecology/Obstetrics Alley Mcghee [address] [place] [address] Nina Monk CRNP [address] [place] [address] 02/27/2024 8:00 AM EST Imaging Maternal Medicine Imaging, Umair Mcghee [address] [place] [phone] Scheduled Orders Name Type Priority Associated Diagnoses Orde r Schedule 50-G GESTATIONAL GLUCOSE, 1 HOUR Lab Routine High-risk in second trimester Expected: 01/08/2024 (Approximate), Expires: 12/24/2024 SYPHILIS ANTIBODY SCREEN WITH REFLEX TO RPR Lab Routine High-risk in second trimester Expected: 01/08/2024 (Approximate), Expires: 12/24/2024 CBC WITH WBC DIFFERENTIAL AND ANEMIA REFLEX WORKUP Lab Routine High-risk in second trimester Expected: 01/08/2024 (Approximate), Expires: 12/24/2024 Health Maintenance Due Date Last Done Comments [...] Author Reminders Care Plan OB Reminders No Jill Provider documented as of this encounter Medical Devices Not on filedocumented as of this encounter Visit Diagnoses Diagnosis High-risk in second trimester- Primary History of placenta accreta History [...] Directives occurred with: Not Discussed Care Teams Cabinetmaker Apprentice Relationship Specialty Start Date End Date Yadi Jaffe MD [address] [place] [address] PCP - General Internal Medicine 10/26/20 documented as of this encounter
--- OUTSIDE RECORDS SUMMARY | 2024-04-10 08:12 | External Medical Summary ---
Author Name Unknown Address Unknown Organization K01:LAB[facility]ATORY [facility] [place] - [address] [place] [address] Laboratory Report Ordering Provider Test Date Status JADEN GONZALES 01/08/2024 08:56:18 Final Observation Date Value Abnormality Reference (Units ) Status Creatinine 01/08/2024 08:56:18 0.7 0.5-1.0 (mg/dL) Final Glomerular filtration rate/1.73 sq M.predicted [Volume Rate/Area] in Serum, Plasma or Blood by Creatinine-based formula (CKD-EPI) 01/08/2024 08:56:18 >90 >=60 (mL/min) Final eGFR is calculated based on the CKD-EPI 2020 equation. Performing Location LAB[facility]ATORY [facility] [place] - [address] [place] [address]
--- OUTSIDE RECORDS SUMMARY | 2024-04-10 08:12 | External Medical Summary | Summary of Care ---
Author Name Unknown Organization [facility] Address [address] [facility] [place] [address] Phone [phone] Care Team Providers Care Percolator Operator Name Role Phone Yadi Jaffe MD Primary Care Provider Reason for Visit * Reason Comments Outpatient Testing Encounter Details Date Type Department Care Team (Late st Contact Info) Description 01/08/2024 8:20 AM EDT Laboratory Laboratory, [facility] [address] [facility] [place] [phone] [facility] [address] [facility] [place] [address] High-risk in second trimester Allergies No known active allergiesdocumented as of [...] 0805/2023 Encounter for preconception consultation 07/16/2022 10/08/2023 Overview: [...] and rule out hypervascularity -Will discuss with MARKETING DIRECTOR-Oncology to see if referral is necessary [...] money to get more. Never true 09/17/2023 [place] Depression Scale Answer Date Recorded [place] Depression Scale Total 0 10/01/2023 The thought [...] on file documented as of this encounter Plan of Treatment Upcoming Encounters Date Type Department Care Team (Late st Contact Info) Description 01/27/2024 8:45 AM EST Office Visit Gynecology/Obstetrics Alley Mcghee [address] [place] [address] BackerHerminia CRNP [address] [place] [address] 02/27/2024 8:00 AM EST Imaging Maternal Medicine Imaging, Umair Mcghee [address] [place] [phone] Pending Results Name Type Priority Associated Diagnoses Date /Time SYPHILIS ANTIBODY SCREEN WITH REFLEX TO RPR Lab Routine High-risk in second trimester 01/08/2024 8:56 AM EDT CBC WITH WBC DIFFERENTIAL AND ANEMIA REFLEX WORKUP Lab Routine High-risk in second trimester 01/08/2024 8:56 AM EDT SYPHILIS ANTIBODY SCREEN Lab Routine High-risk in second trimester 01/08/2024 8:56 AM EDT ANEMIA CBC Lab Routine High-risk in second trimester 01/08/2024 8:56 AM EDT DIFFERENTIAL, AUTOMATED Lab Routine High-risk in second trimester 01/08/2024 8:56 AM EDT ANEMIA REFLEX CHEMISTRY HOLD Lab Routine High-risk in second trimester 01/08/2024 8:56 AM EDT Health Maintenance Due Date Last Done Comments [...] Not on filedocumented as of this encounter Procedures Procedure Name Priority Date/Time Associated Diagnosis Comments 50-G GESTATIONAL GLUCOSE, 1 HOUR Routine 01/08/2024 8:56 AM EDT High-risk in second trimester documented in this encounter Results * 50-G GESTATIONAL GLUCOSE, 1 HOUR (01/08/2024 8:56 AM EDT) 50-g Gestational Glucose, 1 Hour 111 70 - 129 mg/dL 01/08/2024 9:39 AM EDT [facility] Blood Venous blood specimen / Unknown Venipuncture / Unknown 01/08/2024 8:56 AM EDT 01/08/2024 8:56 AM EDT Herminia Martiner MAGUI LAB BLOOD O RDERABLES LAB[facility]ATORY [place] [facility] [address] [place] [address] documented in this encounter Visit Diagnoses Diagnosis High-risk in second trimester documented in this encounter Additional Health Concerns [...] Directives occurred with: Not Discussed Care Teams Percolator Operator Relationship Specialty Start Date End Date Yadi Jaffe MD [address] [place] [address] PCP - General Internal Medicine 10/26/20 documented as of this encounter
--- OUTSIDE RECORDS SUMMARY | 2024-04-10 08:12 | External Medical Summary ---
Author Name Unknown Address Unknown Organization [id number]:[facility] [place] [facility] [address] [place] [address] Laboratory Report Ordering Provider Test Date Status CHRISTIANBACKER 01/08/2024 08:56:18 Final Observation Date Value Abnormality Reference (Units ) Status WBC, Total 01/08/2024 08:56:18 6.76 4.00-10.8 0 (K/uL) Final RBC 01/08/2024 08:56:18 3.82 3.85-5.15 (M/uL) Final Hemoglobin 01/08/2024 08:56:18 10.5 Below low normal 12 .0-15.3 (g/dL) Final Anemia reflex testing trigge rs on a HGB < 12.0 for Females and HGB < 13.0 for Males in accordance with the WHO Anemia Guidelines
Anemia reflex testing triggers on a HGB < 12.0 for Females and HGB < 13.0 for Males in accordance with the WHO Anemia Guidelines HCT 01/08/2024 08:56:18 34.0 Below low normal 36. 0-45.2 (%) Final MCV 01/08/2024 08:56:18 89.0 81.5-97.5 (fL) Final MCH 01/08/2024 08:56:18 27.5 27.0-34.0 (pg) Final MCHC 01/08/2024 08:56:18 30.9 32.0-36.0 (g/dL) Final RDW 01/08/2024 08:56:18 13.1 11.5-15.5 (%) Final Platelets 01/08/2024 08:56:18 200 140-400 (K /uL) Final MPV 01/08/2024 08:56:18 12.1 6.6-11.1 ( fL) Final Nucleated erythrocytes/100 leukocytes [Ratio] in Blood by Automated count 01/08/2024 08:56:18 0 <=0 (/100 WBCs) Final Performing Location [facility] [place] [address] [facility] [address]
--- OUTSIDE RECORDS SUMMARY | 2024-04-10 08:12 | External Medical Summary | Summary of Care ---
Author Name Unknown Organization [facility] Address [address] [facility] [place] [address] Phone [phone] Care Team Providers Care Craft Coordinator Name Role Phone Yadi Jaffe MD Primary Care Provider Encounter Details Date Type Department Care Team (Late st Contact Info) Description 12/31/2023 Orders Only PATIENT PORTAL DO NOT DELETE THIS DEPT USED BY [place] [id number] Allergies No known active allergiesdocumented as of this encounter (statuses as of 12/31/2023) Medications Medication Sig Dispensed Refills Start Date End Date Status 28-0.8 MG Oral Tablet Take by mouth . Active documented as of this encounter (statuses as of 12/31/2023) Active Problems Problem Noted Date Diagnosed Date [...] as of this encounter (statuses as of 12/31/2023) Resolved Problems Problem Noted Date Diagnosed Date [...] and rule out hypervascularity -Will discuss with STOPPER SETTER-Oncology to see if referral is necessary -Pt [...] as of this encounter (statuses as of 12/31/2023) Immunizations Name Administration Dates Next Due TDAP, [...] money to get more. Never true 09/17/2023 [place] Depression Scale Answer Date Recorded [place] Depression Scale Total 0 10/01/2023 The thought [...] 01/08/2024 8:00 AM EDT Office Visit Gynecology/Obstetrics GiancarloGirishhelena Mcghee [address] [place] [address] Nina Monk CRNP [address] [place] [address] 02/27/2024 8:00 AM EST Imaging Maternal Medicine [...] Author Reminders Care Plan OB Reminders No [place], Provider documented as of this encounter Medical [...] Directives occurred with: Not Discussed Care Teams Craft Coordinator Relationship Specialty Start Date End Date Yadi Jaffe MD [address] [facility] [place] [address] PCP - General Internal Medicine 10/26/20 documented as of this encounter
--- OUTSIDE RECORDS SUMMARY | 2024-04-10 08:12 | External Medical Summary | Summary of Care ---
Author Name Unknown Organization [facility] Address [address] [place] [address] Phone [phone] Care Team Providers Care Cotton Buyer Name Role Phone Yadi Jaffe MD Primary Care Provider Encounter Details Date Type Department Care Team (Late st Contact Info) Description 02/24/2024 10:50 AM EST Procedure Only Fertility, [place] [address] [place], [place] [id number] [place], Andrology Lab [address] [place] [address] Female infertility* Allergies No known active allergiesdocumented as of this encounter (statuses as of 02/25/2024) Medications 28-0.8 MG Oral Tablet Take by mouth . Active Iron-Vitamin C 65-125 MG Oral Tablet (Vitron C)Indications:Ant epartum anemia complicating Take 1 Tablet by mouth in the morning and 1 Tablet before bedtime. 60 Tablet 3 4 Active documented as of this encounter (statuses as of 02/25/2024) Active Problems Problem Noted Date Diagnosed Date [...] as of this encounter (statuses as of 02/25/2024) Resolved Problems Problem Noted Date Diagnosed Date [...] and rule out hypervascularity -Will discuss with LIVE STUDY MANAGER-Oncology to see if referral is necessary [...] as of this encounter (statuses as of 02/25/2024) Immunizations Name Administration Dates Next Due TDAP, [...] money to get more. Never true 09/17/2023 [place] Depression Scale Answer Date Recorded [place] Depression Scale Total 0 10/01/2023 The thought [...] Description 02/26/2024 8:00 AM EST Office Visit Gynecology/Obstetrics Al[place] Mcghee [address] [place] [address] Nina Monk CRNP [address] [place] [address] 02/27/2024 8:00 AM EST Imaging Maternal Medicine Imaging, Umair Mcghee [address] [place] [phone] Health Maintenance Due Date Last Done Comments Hepatitis B Vaccine (1 of 3 - 19+ 3-dose series) 02/21/2012 Depression Screening 12/05/2022 12/05/2021 HPV/Co-Test 2023 COVID-19 Vaccine ( - 2023-2 5 season) 2023 Influenza Vaccine [...] incidental Other specified related conditions, unspecified trimester Female infertility- Primary Female infertility of unspecified origin documented in this encounter Additional Health Concerns [...] Directives occurred with: Not Discussed Care Teams Cotton Buyer Relationship Specialty Start Date End Date Yadi Jaffe MD [address] [place] [address] PCP - General Internal Medicine 10/26/20 documented as of this encounter
--- OUTSIDE RECORDS SUMMARY | 2024-04-10 08:12 | External Medical Summary ---
Author Name Unknown Address Unknown Organization [id number][facility] [address] [place] [address] Laboratory Report Ordering Provider Test Date Status JADEN GONZALES 01/08/2024 08:56:18 Final Observation Date Value Abnormality Reference (Units ) Status Glucose [Moles/volume] in Serum or Plasma --1 hour post 50 g glucose PO 01/08/2024 08:56:18 111 70-129 (mg/dL) Final Performing Location [facility] - [address] [place] [address]
--- OUTSIDE RECORDS SUMMARY | 2024-04-10 08:12 | External Medical Summary | Summary of Care ---
Author Name Unknown Organization [facility] Address [address] [facility] [place] [place] [address] Phone [phone] Care Team Providers Care Churn Drill Operator Name Role Phone Yadi Jaffe MD Primary Care Provider Reason for Visit * Reason Comments Outpatient Testing Encounter Details Date Type Department Care Team (Late st Contact Info) Description 02/11/2024 9:20 AM EST Laboratory Laboratory, [facility] [address] [facility] [place] [address] [facility] [address] Arrived Allergies No known active allergiesdocumented as of this encounter (statuses as of 02/11/2024) Medications 28-0.8 MG Oral Tablet Take by mouth . Active Iron-Vitamin C 65-125 MG Oral Tablet (Vitron C)Indications:Ant epartum anemia complicating Take 1 Tablet by mouth in the morning and 1 Tablet before bedtime. 60 Tablet 3 4 Active documented as of this encounter (statuses as of 02/11/2024) Active Problems Problem Noted Date Diagnosed Date [...] as of this encounter (statuses as of 02/11/2024) Resolved Problems Problem Noted Date Diagnosed Date [...] and rule out hypervascularity -Will discuss with WAD BLANKING PRESS ADJUSTER-Oncology to see if referral is necessary -Pt [...] as of this encounter (statuses as of 02/11/2024) Immunizations Name Administration Dates Next Due TDAP, [...] money to get more. Never true 09/17/2023 [place] Depression Scale Answer Date Recorded [place] Depression Scale Total 0 10/01/2023 The thought [...] 02/24/2024 10:50 AM EST Procedure Only Fertility, [place] [address] [facility] [address] [place], Andrology Lab [address] [place], [place] [phone] 02/26/2024 8:00 AM EST Office Visit Gynecology/Obstetrics [facility] [address] [facility] [place] [address] Nina Monk CRNP [address] [place] [address] 02/27/2024 8:00 AM EST Imaging Maternal Medicine Imaging, [facility] [address] [facility] [place] [address] Health Maintenance Due Date Last Done [...] 3:50 PM 07/04/2021 9:36 PM This order reflects the patients wishes and were consensually agreed upon. Question Answer Comments Discussion of Advance Directives occurred with: Not Discussed * Full Code Date Activated Date Inactivated Comments 07/04/2021 3:48 PM 07/04/2021 3:50 PM This order r eflects the patients wishes and were consensually agreed upon. Question Answer Comments Discussion of Advance Directives occurred with: Not Discussed Care Teams Churn Drill Operator Relationship Specialty Start Date End Date Yadi Jaffe MD [address] [place] [address] PCP - General Internal Medicine 10/26/20 documented as of this encounter
--- OUTSIDE RECORDS SUMMARY | 2024-04-10 08:12 | External Medical Summary | Summary of Care ---
Author Name Unknown Organization [facility] Address [address] [place] [address] Phone [phone] Care Team Providers Care Marine Engine Driver Name Role Phone Yadi Jaffe MD Primary Care Provider Reason for Visit * Reason Onset Date Comments Referral 10/02/2023 Encounter Details Date Type Department Care Team (Late st Contact Info) Description 10/02/2023 Telephone Alarm Adjuster Obstetrics Maternal Medicine, [place] [address] [place], [place] [phone] [place], Nurse Alarm Adjuster [facility] [address] [place], [place] [phone] Referral Allergies No known active allergiesdocumented as of this encounter (statuses as of 01/01/2024) Medications Medication Sig Dispensed Refills Start Date End Date Status 28-0.8 MG Oral Tablet Take by mouth . Active documented as of this encounter (statuses as of 01/01/2024) Active Problems Problem Noted Date Diagnosed Date [...] as of this encounter (statuses as of 01/01/2024) Resolved Problems Problem Noted Date Diagnosed Date Resolved Date test positive 08/21/2023 08/05/2023 Encounter for preconception consultation 07/16/2022 10/08/2023 Overview: [...] and rule out hypervascularity -Will discuss with GUNSTOCK SPRAY UNIT ADJUSTER-Oncology to see if referral is necessary [...] as of this encounter (statuses as of 01/01/2024) Immunizations Name Administration Dates Next Due TDAP, [...] money to get more. Never true 09/17/2023 [place] Depression Scale Answer Date Recorded [place] Depression Scale Total 0 10/01/2023 The thought [...] encounter Miscellaneous Notes * Telephone Encounter - Alma Blanchard OSA - 10/02/2023 11:06 AM EDT Spoke with Kylie. Appointment scheduled. Patient aware of date, time and location of Maternal Medicine appointment. 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 Had MFM consult discussion. Please schedule anatomy between 19-21 weeks (11/14/23-11/28/23). Referring Provider: Nina Monk CRNP documented in this encounter Plan of Treatment Upcoming Encounters Date Type Department Care Team (Late st Contact Info) Description 01/08/2024 8:00 AM EDT Office Visit Gynecology/Obstetrics [facility] [address] [place] [address] Nina Monk CRNP [address] [place] [address] 02/27/2024 8:00 AM EST Imaging Maternal Medicine Imaging, Umair Mcgehe [address] [place] [phone] Health Maintenance Due Date Last Done Comments Hepatitis B Vaccine (1 of 3 - 19+ 3-dose series) 02/21/2012 Depression Screening 12/05/2022 12/05/2021 HPV/Co-Test 2023 COVID-19 Vaccine (2023-2 5 season) 2023 Influenza Vaccine (FLU shot) [...] Directives occurred with: Not Discussed Care Teams Marine Engine Driver Relationship Specialty Start Date End Date Yadi Jaffe MD [address] [place] [address] PCP - General Internal Medicine 10/26/20 documented as of this encounter
--- OUTSIDE RECORDS SUMMARY | 2024-04-10 08:12 | External Medical Summary | Summary of Care ---
Author Name Unknown Organization [facility] Address [address] [facility] [place] [address] Phone [phone] Care Team Providers Care Jeeper Operator Name Role Phone Yadi Jaffe MD Primary Care Provider Reason for Visit * Reason Comments Return Visit Encounter Details Date Type Department Care Team (Late st Contact Info) Description 02/11/2024 8:15 AM EST Office Visit Gynecology/Obstetric s [place]helena Mcghee [address] [place] [address] Nina Monk CRNP [address] [place] [address] High-risk in third trimester*; History of placenta [...] and rule out hypervascularity -Will discuss with BOWL SANDER-Oncology to see if referral is necessary -Pt [...] money to get more. Never true 09/17/2023 [place] Depression Scale Answer Date Recorded [place] Depression Scale Total 0 10/01/2023 The thought [...] Sign Reading Time Taken Comments Blood Pressure 98/54 02/11/2024 8:04 AM EST Pulse - - Temperature - - Respiratory Rate - - Oxygen Saturation - - Inhaled Oxygen Concentration - - Weight 79.8 kg (176 lb) 02/11/2024 8:04 AM EST Height - - Body Mass Index 29.29 09/24/2023 12:37 PM EDT documented in this encounter Progress Notes * Nina Monk CRNP - 02/11/2024 8:12 AM EST 31w6d No concerns. Taking iron as directed, will recheck CBC today. Baby is active. No contractions, bleeding LOF. MAGUI Jc * Shantelle Alamo CMA - 02/11/2024 8:04 AM EST 31w6d Denies any concerns documented in this encounter Plan of Treatment Upcoming Encounters Date Type Department Care Team (Late st Contact Info) Description 02/11/2024 9:20 AM EST [facility] 132 [facility] [place] [phone] [place] mal[place] [facility] 132 [facility] [place] [address] Arrived 02/24/2024 10:50 AM EST Procedure Only Fertility, [place] [address] [place] [address] [place], Andrology Lab [address] [place] [address] 02/26/2024 8:00 AM EST Office Visit Gynecology/Obstetrics Alley Mcghee [address] [place] [address] Nina Monk CRNP [address] [place] [address] 02/27/2024 8:00 AM EST Imaging Maternal Medicine Imaging, Umair Mcghee [address] [place] [phone] Health [...] Procedure Name Priority Date/Time Associated Diagnosis Comments CBC Routine 02/11/2024 8:15 AM EST Antepartum anemia complicating documented in this encounter Results * (ABNORMAL) CBC (02/11/2024 8:15 AM EST) WBC 7.83 4.00 - 10.80 K/uL 02/11/2024 8:22 AM EST [facility] [place] [facility]10 RBC 4.01 3.85 - 5.15 M/uL 02/11/2024 8:22 AM EST [facility] [place] 57-10 HGB 11.4(L) 12.0 - 15.3 g/dL 02/11/2024 8:22 AM EST [facility] [place] 57-10 HCT 35.0(L) 36.0 - 45.2 % 02/11/2024 8:22 AM EST [facility] [place] 57-10 MCV 87.3 81.5 - 97.5 fL 02/11/2024 8:22 AM EST [facility] [place] 57-10 MCH 28.4 27.0 - 34.0 pg 02/11/2024 8:22 AM EST [facility] [place] [facility]-10 MCHC 32.6 32.0 - 36.0 g/dL 02/11/2024 8:22 AM EST [facility] [place] 57-10 RDW 14.9 11.5 - 15.5 % 02/11/2024 8:22 AM EST [facility] [place] 57-10 PLT 173 140 - 400 K/uL 02/11/2024 8:22 AM EST [facility] [place] [facility]-10 MPV 11.4 6.6 - 11.1 fL 02/11/2024 8:22 AM EST [facility] [place] [facility]-10 Blood Venous blood specimen / Unknown Venipuncture / Unknown 02/11/2024 8:15 AM EST 02/11/2024 8:19 AM EST Nina [place] [facility] BLOOD ORDERABLES Final Re sult [facility] [place] [facility] [address] [facility] [address] documented in this encounter Visit Diagnoses Diagnosis History of [...] Directives occurred with: Not Discussed Care Teams Jeeper Operator Relationship Specialty Start Date End Date Yadi Jaffe MD [address] [facility] [place] [address] PCP - General Internal Medicine 10/26/20 documented as of this encounter
--- OUTSIDE RECORDS SUMMARY | 2024-04-10 08:13 | External Medical Summary | Summary of Care ---
Author Name Unknown Organization [facility] Address [address] [facility] [place] [address] Phone [phone] Care Team Providers Care Career Development Director Name Role Phone Yadi Jaffe MD Primary Care Provider Reason for Visit * Reason Comments Return Visit Encounter Details Date Type Department Care Team (Late st Contact Info) Description 10/29/2023 1:30 PM EDT Office Visit Gynecology/Obstetric s Alley Mcghee [address] [place] [address] Herminia Dorado CRNP [address] [place] [address] High-risk in second trimester*; History of placenta accreta; History of hemorrhage; Family history of congenital heart defect Allergies No known active allergiesdocumented as of this encounter (statuses as of 10/29/2023) Medications Medication Sig Dispensed Refills Start Date End Date Status 28-0.8 MG Oral Tablet Take by mouth . Active documented as of this encounter (statuses as of 10/29/2023) Active Problems Problem Noted Date Diagnosed Date Family history of congenital heart defect 2023 Overview: Daughter product of IVF, with small VSD, did not require surgery. No other famhx of CHD. . In patients with this family history we recommend an anatomy survey with Maternal Medicine at 18-20 weeks gestation and echocardiogram with Maternal medicine at 22-24 weeks gestation. Last Assessment & Plan: DISCUSSION: 1. Discussed that family history of [...] 22-24 weeks gestation. History of hemorrhage 10/08/2023 Last Assessment & [...] as of this encounter (statuses as of 10/29/2023) Resolved Problems Problem Noted Date Diagnosed Date [...] and rule out hypervascularity -Will discuss with SET AND EXHIBIT DESIGNER-Oncology to see if referral is necessary -Pt [...] as of this encounter (statuses as of 10/29/2023) Immunizations Name Administration Dates Next Due TDAP, [...] money to get more. Never true 09/17/2023 [place] Depression Scale Answer Date Recorded [place] Depression Scale Total 0 10/01/2023 The thought [...] Reading Time Taken Comments Blood Pressure 102/60 10/29/2023 1:24 PM EDT Pulse - - Temperature - - Respiratory Rate - - Oxygen Saturation - - Inhaled Oxygen Concentration - - Weight 73.9 kg (163 lb) 10/29/2023 1:24 PM EDT Height - - Body Mass Index 27.12 09/24/2023 12:37 PM EDT documented in this encounter Progress Notes * Paulette Thomas LPN - 10/29/2023 1:23 PM EDT 16w6d Denies vaginal bleeding/rom Absent movement Anatomy with MFM No new concerns * Herminia Dorado CRNP - 10/29/2023 1:22 PM EDT 16w6d Doing well, less fatigue. No bleeding/cramping. Not feeling movement yet. Discussed/declined MSAFP. Anatomy scan scheduled with MFM. Return in 4 weeks. MAGUI Schmidt documented in this encounter Plan of Treatment Upcoming Encounters Date Type Department Care Team (Late st Contact Info) Description 11/22/2023 7:45 AM EDT Office Visit Gang Bore Operator Obstetrics Maternal Medicine, [place] [address] [place] [address] Antonio [place], [address] [place] [address] 11/22/2023 7:45 AM EDT Imaging Radiology [facility] [place], [place] [address] [place] [address] 11/27/2023 8:00 AM EDT Office Visit Gynecology/Obstetrics [facility] [address] [place] [address] Nina Monk CRNP [address] [place] [address] 02/26/2024 9:00 AM EST Office Visit Gynecology/Obstetrics [facility] [address] [facility] [place] [address] Nina Monk CRNP [address] [place] [address] Health Maintenance Due Date Last Done Comments Hepatitis B Vaccine (1 of 3 - 19+ 3-dose series) 02/21/2012 COVID-19 Vaccine (2022-2 4 season) 2022 Depression Screening 12/05/2022 12/05/2021 HPV/Co-Test 2023 Influenza Vaccine (FLU shot) (#1) 2023 Cervical Cancer Screening 11/06/2024 Pap Smear 11/06/2024 11/06/2021 DTaP,Tdap,and Td Vaccines (2 - Td or Tdap) 01/02/2028 01/01/2018 HPV (Gardasil) Vaccine Aged [...] Directives occurred with: Not Discussed Care Teams Career Development Director Relationship Specialty Start Date End Date Yadi Jaffe MD [address] [place] [address] PCP - General Internal Medicine 10/26/20 documented as of this encounter
--- OUTSIDE RECORDS SUMMARY | 2024-04-10 08:13 | External Medical Summary | Summary of Care ---
Author Name Unknown Organization [facility] Address [address] [place] [address] Phone [phone] Care Team Providers Care Prop Attendant Name Role Phone Yadi Jaffe MD Primary Care Provider Reason for Visit * Evaluate & Treat - Unlimited Visits (Within 10 days (routine)) - Authorized Specialty Diagnoses / Procedures Referred By Contac t Referred To Contact Obstetrics/Gynecology / Maternal Medicine Diagnoses History of placenta accreta Nina Monk CRNP [address] [facility] [address] Referral ID Status Reason Start Date Expiration Date Visits Requested Visits Authorized [id number] Authorized Specialty Services Required 10/01/2023 [id number] Encounter Details Date Type Department Care Team (Late st Contact Info) Description 10/09/2023 9:30 AM EDT Telemedicine Laboratory Chief Obstetrics Maternal Medicine, [place] [address], [place] [id number] [facility] [address], [place] [id number] History of placenta accreta*; History of hemorrhage; Family history of congenital heart defect; 14 weeks gestation of Allergies No known active allergiesdocumented as of this encounter (statuses as of 10/21/2023) Medications Medication Sig Dispensed Refills Start Date End Date Status 28-0.8 MG Oral Tablet Take by mouth . Active documented as of this encounter (statuses as of 10/21/2023) Active Problems Problem Noted Date Diagnosed Date Family history of congenital heart defect 2023 Overview: Daughter product of IVF, with small VSD, did not require surgery. No other famhx of CHD. Last Assessment & Plan: DISCUSSION: 1. Discussed [...] increased risk of PPH in future pregnancies. Encounter for supervision of other normal , unspecified trimester 10/01/2023 History of anemia 08/21/2023 test positive 08/21/2023 History of placenta accreta 08/21/2023 Overview: [...] as of this encounter (statuses as of 10/21/2023) Resolved Problems Problem Noted Date Diagnosed Date Resolved Date Encounter for preconception consultation 07/16/2022 10/08/2023 Overview: [...] MRI Met with MFM . MFM consult placed Last Assessment & Plan: -Discussed at length [...] and rule out hypervascularity -Will discuss with HIGH SCHOOL SPECIAL EDUCATION TEACHER-Oncology to see if referral is necessary -Pt [...] as of this encounter (statuses as of 10/21/2023) Immunizations Name Administration Dates Next Due TDAP, [...] money to get more. Never true 09/17/2023 [place] Depression Scale Answer Date Recorded [place] Depression Scale Total 0 10/01/2023 The thought [...] as of this encounter Progress Notes * Chelly Topete DO - 10/09/2023 9:28 AM EDT MATERNAL MEDICINE CONSULT Patient location: HOME. I was in a hospital or clinic location. After connecting through televideo,patient was verified with two unique identifiers. Patient (or authorized legal health and safety representative) was then informed that this was a Telemedicine visit and being conducted confidentially over secure lines. Methods to assure confidentiality were taken. Patient acknowledged consent and understanding of pr ivacy and security of the Telemedicine visit. The patient agreed to participate. Due to connection issues, the visit was transferred to telephone. Kylie Confer 10/09/2023 REFERRING PROVIDER: MAGUI Jc Kylie is a 28 year old with intrauterine at 14w0d who presents today for an MFM consult due to possible hx of PAS. HPI/CURRENT : pre- BMI=overweight (164#; 5'5"); FOB #1; complicated by : OB Umair Mcghee Problems (from 09/24/23 to present) Problem Noted Resolved Family history of congenital heart defect 10/09/2023 by Chelly Topete DO No Overview Signed 10/09/2023 9:51 AM by Chelly Topete DO Daughter product of IVF, with small VSD, did not require surgery. No other famhx of CHD. History of hemorrhage 10/08/2023 by Chelly Topete DO No Encounter for supervision of other normal , unspecified trimester 10/01/2023 by Nina Monk CRNP No History of placenta accreta 08/21/2023 by Jyoti Smith CRNP No Overview Signed 10/09/2023 9:01 AM by Chelly Topete DO -History of possible placenta accreta 05/17/2022 - 05/17/2022 with subsuquent post hemmorrhage of approximately 3 liters. Required D&C with Bakri balloon placement. -Placenta delivered in fragments and pieces -Had MRI 6 weeks indicating possible accreta. BHCG was negative at that time and case was discussed with onc who did not advise methotrexate. Patient had a subsequent ultrasound that was unremarkable. Placenta accreta 07/02/2022 by Chelly Ochoa MD 10/08/2023 by Chelly Topete DO Overview Addendum 10/01/2023 3:05 PM by Nina Monk CRNP -Concern at time of delivery, -Noted 6 week on MRI Met with MFM . MFM consult placed LMP c/w 1TUS, will used DAVIDE 04/08/24 Qnatal in process I have reviewed this patient's previous OB ultrasound reports, pertinent labwork and testing provided by her referring OB provider. Current Outpatient Medications Medication Sig Dispense Refill 28-0.8 MG Oral Tablet Take by mouth . No current facility-administered medications for this visit. OB History Para Term AB Living 2 1 1 0 0 1 SAB IAB Ectopic Multiple Live Births 0 0 0 0 1 # Outcome Date GA Lbr Roberto/2nd Weight Sex Type Anes PTL Lv 2 Current 1 Term 05/17/22 39w6d 3.149 kg (6 lb 15.1 oz) F Vag-Spont EPI, Gen SHAZIA Comments: PPH, retained POC, hemorrhogic shock Obstetric Comments PPH 3L, retained POC, underwent D+C with Richard balloon placement. Transfer to ICU for hemorrhagic shock (blood and pressors) 2023-FOB #1 Jabari 29yo, DVT related to injury (reports neg genetic workup), no children outside of relationship, denies significant famhx Review of patient's allergies indicates: No Known Allergies Past Medical History: Diagnosis Date cardiac anomaly affecting , antepartum 07/02/2022 small VSD Infertility, female Placenta accreta, antepartum 07/02/2022 hemorrhage 05/17/2022 Past Surgical History: Procedure Laterality Date DENTAL SURGERY PROCEDURE NEC when in [facility] DILATION AND CURETTAGE (D&C) N/A 07/04/2021 DILATION AND CURETTAGE performed by Remedios Rosen DO at OR [facility] HYSTEROSCOPY W/BIOPSY AND/OR POLYPECTOMY W/WO D&C N/A 07/04/2021 HYSTEROSCOPY WITH BIOPSY AND/OR POLYPECTOMY WITH OR WITHOUT D&C performed by Remedios Rosen DO at OR [facility] LA CURETTAGE N/A 05/17/2022 PPH, possible accreta Family History Problem Relation Name Age of Onset Breast Cancer Mother 42 BrCA negative Hypertension Father resolved with fci No Known Problems Brother Alzheimer's disease Grandmother (Paternal) Breast Cancer Great-grandmother (Maternal) Breast Cancer Other maternal great aunt Social History Tobacco Use Smoking status: Never Smokeless tobacco: Never Vaping Use Vaping status: Never Used Substance Use Topics Alcohol use: Not Currently Comment: social Drug use: Never Social History Substance and Sexual Activity Drug Use Never REVIEW OF SYSTEMS: headaches: no nausea/vomiting: reports occas n/v reports movement: no abdominal pain/tenderness/cramping/contractions: no vaginal bleeding: no vaginal leaking of fluid: no leg pain/tenderness: no all other systems negative PHYSICAL EXAM: LMP 07/03/2023 (Exact Date) General: pleasant, alert and oriented DISCUSSION/RECOMMENDATIONS: History of placenta accreta Assessment & Plan: -Did review a possible recurrence risk as high as 30% and plans for hysterectomy with all associate morbidity/mortality in that instance. We discussed higher likelihood of miscarriage, vaginal bleeding in , and delivery. -Recommend anatomy ultrasound at 19-20 weeks with MFM. -Recommend follow up ultrasound around 34 weeks to evaluate placenta. History of hemorrhage Assessment & Plan: -Reviewed increased risk of PPH in future pregnancies. Family history of congenital heart defect Assessment & Plan: DISCUSSION: 1. Discussed that family history of congenital cardiac defect in a first degree relative of the fetus (mother of the baby, father of the baby or a full sibling of the baby) increases the risk of cardiac defect in this to approximately 4-10%. CONSIDERATIONS: 1. In patients with this family history we recommend an anatomy survey with Maternal Medicineat 18-20 weeks gestation and echocardiogram with Maternal medicine at 22-24 weeks gestation. 14 weeks gestation of Chelly Topete DO 10/09/2023 9:28 AM LATE ENTRY FOR 10/09/2023: I have discussed the patient's management with the medical trainee and agree with the note. Please refer to the documented findings and plan of care. This patient's visit today consisted of a telemedicine visit using real time audio/video technology. I personally interacted with the patient via this technology and confirmed the findings as documented. Jeff Mays MD 10/21/2023 4:06 PM Jeff Mays MD documented in this encounter Miscellaneous Notes * Assessment & Plan Note - Chelly Topete DO - 10/09/2023 9:51 AM EDT Associated Problem(s): Family history of congenital heart defect DISCUSSION: 1. Discussed that family history of congenital cardiac defect in a first degree relative of the fetus (mother of the baby, father of the baby or a full sibling of the baby) increases the risk of cardiac defect in this to approximately 4-10%. CONSIDERATIONS: 1. In patients with this family history we recommend an anatomy survey with Maternal Medicineat 18-20 weeks gestation and echocardiogram with Maternal medicine at 22-24 weeks gestation. * Assessment & Plan Note - Chelly Topete DO - 10/09/2023 8:59 AM EDT Associated Problem(s): History of hemorrhage -Reviewed increased risk of PPH in future pregnancies. * Assessment & Plan Note - Chelly Topete DO - 10/08/2023 7:55 AM EDT Associated Problem(s): History of placenta accreta -Did review a possible recurrence risk as high as 30% and plans for hysterectomy with all associate morbidity/mortality in that instance. We discussed higher likelihood of miscarriage, vaginal bleeding in , and delivery. -Recommend anatomy ultrasound at 19-20 weeks with MFM. -Recommend follow up ultrasound around 34 weeks to evaluate placenta. documented in this encounter Plan of Treatment Upcoming Encounters Date Type Department Care Team (Late st Contact Info) Description 10/29/2023 1:30 PM EDT Office Visit Gynecology/Obstetrics [facility] [address] [place] [address] Herminia Dorado CRNP [address] [place] [address] 11/22/2023 7:45 AM EDT Office Visit Laboratory Chief Obstetrics Maternal Medicine, [place] [address] [place] [address] Antonio Lagos DO [address] [place] [address] 11/22/2023 7:45 AM EDT Imaging Radiology [facility] [address] [place] [address] 02/26/2024 9:00 AM EST Office Visit Gynecology/Obstetrics [facility] [address] [place] [address] Nina Monk CRNP [address] [place] [address] Scheduled Referrals Name Type Priority Associated Diagnoses Orde r Schedule MATERNAL MEDICINE REFERRAL OP Referral Within 10 days (routine) History of placenta accreta Ordered: 10/01/2023 Health Maintenance Due Date Last Done Comments [...] anomalies 14 weeks gestation of state, incidental documented in this encounter Additional Health Concerns [...] Directives occurred with: Not Discussed Care Teams Prop Attendant Relationship Specialty Start Date End Date Yadi Jaffe MD [address] [place] [address] PCP - General Internal Medicine 10/26/20 documented as of this encounter
--- OUTSIDE RECORDS SUMMARY | 2024-04-10 08:13 | External Medical Summary | Summary of Care ---
Author Name Unknown Organization [facility] Address [address] [place] [address] Phone [phone] Care Team Providers Care Compress Trucker Name Role Phone Yadi Jaffe MD Primary Care Provider Reason for Visit * Reason Comments Ultrasound Encounter Details Date Type Department Care Team (Late st Contact Info) Description 11/22/2023 7:45 AM EDT Office Visit Medart Operator Obstetrics Maternal Medicine, [place] [address], [place] [phone] Antonio Lagos, [address] [place] [address] Family history of congenital heart defect*; History of placenta accreta; History of hemorrhage; 20 weeks gestation of ; Other specified related conditions, unspecified trimester Allergies No known active allergiesdocumented as of this encounter (statuses as of 11/22/2023) Medications Medication Sig Dispensed Refills Start Date End Date Status 28-0.8 MG Oral Tablet Take by mouth . Active documented as of this encounter (statuses as of 11/22/2023) Active Problems Problem Noted Date Diagnosed Date [...] as of this encounter (statuses as of 11/22/2023) Resolved Problems Problem Noted Date Diagnosed Date [...] and rule out hypervascularity -Will discuss with ASSISTANT ENGINEER-Oncology to see if referral is necessary -Pt [...] as of this encounter (statuses as of 11/22/2023) Immunizations Name Administration Dates Next Due TDAP, [...] money to get more. Never true 09/17/2023 [place] Depression Scale Answer Date Recorded [place] Depression Scale Total 0 10/01/2023 The thought [...] as of this encounter Progress Notes * Antonio Lagos, - 11/22/2023 10:13 AM EDT MATERNAL MEDICINE VISIT Kylie Agosto is at 20w2d who presents to [facility] for an ultrasound and follow-up of her high risk . PHYSICAL EXAM: General: pleasant, alert and oriented, no acute distress She is being seen today by Maternal- Medicine for the following reasons: Problem List Items Addressed This Visit History of placenta accreta History of hemorrhage Family history of congenital heart defect - Primary She presents for a anatomy survey and [...] identify all anomalies, but it is reassuring thatno anomalies were seen today. We reviewed limitation of echocardiography in detecting all forms of CHD. The placenta is right lateral/fundal. There are no features of placenta accreta appreciated at thistime. We reviewed today's ultrasound findings. (For full report, please refer to ultrasound report provided separately). Ms. Agosto's questions were answered to her satisfaction. RECOMMENDATIONS: Recommend follow up ultrasound with MFM in 14 weeks for growth and reevaluation of the placenta. Thank you for allowing us to participate in the care of this patient. Please call with any questions. Antonio Lagos DO 11/22/2023 10:13 AM documented in this encounter Miscellaneous Notes * Assessment & Plan Note - Antonio Lagos, - 11/22/2023 8:28 AM EDT Associated Problem(s): Family history of congenital heart defect She presents for a anatomy survey and [...] identify all anomalies, but it is reassuring thatno anomalies were seen today. We reviewed limitation of echocardiography in detecting all forms of CHD. The placenta is right lateral/fundal. There are no features of placenta accreta appreciated at thistime. documented in this encounter Plan of Treatment Upcoming Encounters Date Type Department Care Team (Late st Contact Info) Description 11/27/2023 8:00 AM EDT Office Visit Gynecology/Obstetrics [facility] [address] [place] [address] Nina Monk CRNP [address] [place] [address] 02/27/2024 8:00 AM EST Imaging Maternal Medicine [place], Umair Mcghee [address] [place] [address] Scheduled Orders Name Type Priority Associated Diagnoses Orde r Schedule MFM US PREG FOLLOW UP EACH FETUS Medical Imaging Routine Family history of congenital heart defect History of placenta accreta History of hemorrhage Other specified related conditions, unspecified trimester 6 Occurrences starting 11/22/2023 until 04/08/2024 Health Maintenance Due Date Last Done Comments [...] as of this encounter Visit Diagnoses Diagnosis Family history of congenital heart defect- Primary Family history of congenital anomalies History of placenta accreta History of hemorrhage 20 weeks gestation of state, incidental Other specified related conditions, unspecified trimester documented in this encounter Additional Health [...] Directives occurred with: Not Discussed Care Teams Compress Trucker Relationship Specialty Start Date End Date Yadi Jaffe MD [address] [place] [address] PCP - General Internal Medicine 10/26/20 documented as of this encounter
[2024-04-10] MEDS ORDERED: LIDOCAINE 1% LOCAL 20 ML VIAL INFIL PRN ×2 (08:23→13:10)
--- NOTE | 2024-04-10 08:23 | History & Physical Report ---
Date of Service April 10, 2024 Assessment & Plan (1) Encounter for induction of labor: Present on Admission?: Yes (2) , post-term: Present on Admission?: Yes Plan Admit to L and D Regular diet x 2 then NPO/IV Fluids GBS Negative Cytotec X 1 25 mcg PO then start Pitocin to augment labor and eventually AROM Pain meds including epidural as the pt desires Admission and Anticipated Discharge Date Admission Date: April 10, 2024 History of Present Illness Chief Complaint: induction of labor for post dates Primary Care Provider: NO PCP pt 29 yr old IUP at 40 weeks and 2 days came i to L and D for IOL for post dates. Pt denies regular uterine contractions, vaginal bleeding, leaking of fluid per vagina etc. Reports good movement. Allergies Allergy/AdvReac Type Severity Reaction Status Date / Time No Known Drug Allergies Allergy Verified 04/01/19 13:51 Home Medications Medication Instructions Recorded Confirmed Type ferrous sulfate 325 mg (65 mg 325 mg PO DAILY@08 #60 tabs 05/19/22 04/10/24 Rx iron) tablet,delayed release vits no.124-ferrous fum 1 tab PO DAILY 04/10/24 04/10/24 History 27 mg iron-folic acid 800 mcg tablet ( Vitamin) Patient History Medical History History of varicella vaccination Surgical History History of hysteroscopy H/O dilation and curettage [place] teeth removed History of hysterosalpingogram Family History Mother , 04/2011 at age 49 Breast cancer, Onset Age: 42 negative BRCA genes Aunt Breast cancer maternal great aunt Grandmother (Maternal) Breast cancer maternal great grandmother Denies family history of Ovarian cancer Prostate cancer Myocardial infarction Colorectal cancer Social History Smoking Status: Never smoker Second Hand Exposure: No; Do You Dip or Chew Tobacco: No; Hx Alcohol Use: Yes Hx Substance Use: No Preferred Language: Bengali Communication Ability: Effective Carbon Paste Mixer Operator Required: No Beliefs That Will Affect Care: None marital status: Current Living Situation: Spouse Feels Safe at Home: Yes Dental Care, Regularly: Yes Physical Activity Frequency: 3-4 Times per Week Assistive Devices: None OB History Pt had prior 2 yrs ago with Placenta Accreta for which pt had D and C with PPH with 3 L of blood loss and s/p Transfusion Review of Systems All systems reviewed & are unremarkable except as noted in HPI & below as per Subjective / HPI as per Subjective / HPI as per Subjective / HPI Physical Exam Constitutional: WD/WN, vitals as above Respiratory: normal respiratory effort, lungs clear to auscultation Cardiovascular: RRR, no murmur, no edema Gastrointestinal (Abdomen): normal bowel sounds, soft, nontender, no hepatosplenomegaly Skin: no rashes, warm and dry Psychiatric: A+Ox3, euthymic affect Genitourinary: no vaginal lesions, no adnexal mass Speculum/Bimanual Exam: normal appearance of the vagina OB Exam Abdomen: + heart tones, + vertex, + estimated weight (3200 gm) and + irregular contractions Manual OB Exam: + cervical dilation 2 cm, + cervical effacement 70% and + station -2 OB Exam Monitor Tracing: + external FHT monitor used, + external uterine monitor used, + category I and + normal FHT variability Results & Data Vital Signs (Past 12 Hours) Vital Signs Pulse BP 04/10/24 07:58 89 113/72 Monitoring External Monitor 140s, good variability, positive accelerations Tocodynamometer Irregular uterine contractions
[2024-04-10] MEDS: miSOPROStoL 25 MCG TAB PO SCH (08:38)
[2024-04-10 09:01] LABS: Hematocrit (blood only) 33.2 % (37.0-47.0); Mean Corpuscular Hemoglobin 27.9 pg (25.0-34.0); Mean Corpuscular Hgb Conc 33.1 g/dL (32.0-36.0); Mean Corpuscular Volume 84.3 fL (80.0-100.0); Mean Platelet Volume 11.8 fL (9.4-12.4); Platelet Count 153 K/uL (130-400); RDW Coefficient of Variation 14.1 % (11.5-14.5); RDW Standard Deviation 43.5 fL (36.4-46.3); Red Blood Count 3.94 M/uL (4.20-5.40); White Blood Count 4.56 K/ul (4.8-10.8)
[2024-04-10] MEDS ORDERED: SODIUM CHLORIDE 0.9% 50 ML IV PRN (11:06)
[2024-04-10] MEDS ORDERED: SODIUM CHLORIDE 0.9% 100 ML IV PRN (11:06)
[2024-04-10] MEDS ORDERED: OXYTOCIN 30 UNITS/NSS 30 UNITS/500 ML BAG IV SCH ×2 (12:00→13:30)
[2024-04-10] MEDS ORDERED: OXYTOCIN 30 UNITS/NSS 30 UNITS/500 ML BAG IV PRN ×2 (13:10→22:30)
[2024-04-10] MEDS: SODIUM CHLORIDE 0.9% 1,000 ML IV SCH (13:37)
[2024-04-10] MEDS: OXYTOCIN 30 UNITS/NSS 30 UNITS/500 ML BAG IV PRN ×2 (13:46→22:04)
[2024-04-10] MEDS ORDERED: ePHEDrine sulfate 50 MG/ML AMP ONE (15:29)
[2024-04-10] MEDS ORDERED: SODIUM CHLORIDE 0.9% PF INJ 10 ML VIAL ONE (15:29)
[2024-04-10] MEDS ORDERED: ePHEDrine sulfate 50 MG/ML AMP IV PRN (16:48)
[2024-04-10] MEDS ORDERED: fentaNYL citrate PF 100 MCG/2 ML VIAL EPI PRN (16:48)
[2024-04-10] MEDS ORDERED: NALBUPHINE HCL INJ 10 MG/ML AMP IV PRN (16:48)
[2024-04-10] MEDS ORDERED: NALOXONE HCL 1 MG in SODIUM CHLORIDE 0.9% 1,000 ML IV PRN (16:48)
[2024-04-10] MEDS ORDERED: fentaNYL citrate PF 100 MCG/2 ML VIAL EPI STA (16:48)
[2024-04-10] MEDS ORDERED: LIDOCAINE 2% MPF LOCAL 5 ML VIAL EPI PRN (16:48)
[2024-04-10] MEDS ORDERED: ROPIVACAINE 0.5% PF 5 MG/ML 20 ML VIAL EPI PRN (16:48)
[2024-04-10] MEDS ORDERED: SODIUM CHLORIDE 0.9% PF INJ 10 ML VIAL EPI STA (16:48)
[2024-04-10] MEDS ORDERED: NALOXONE HCL 0.4 MG/1 ML VIAL/CARP IV PRN (16:48)
[2024-04-10] MEDS ORDERED: BUPIVACAINE 0.25% PF 30 ML VIAL EPI PRN (16:48)
[2024-04-10] MEDS ORDERED: LIDOCAINE 2%/EPINEPHRINE 1:200,000 20 ML PF EPI STA (16:48)
[2024-04-10] MEDS ORDERED: SODIUM CHLORIDE 0.9% PF INJ 10 ML VIAL EPI PRN (16:48)
[2024-04-10] MEDS ORDERED: diphenhydrAMINE 50 MG/ML VIAL IV PRN (16:48)
[2024-04-10] MEDS ORDERED: BUPIVACAINE 0.25% PF 30 ML VIAL EPI STA (16:48)
[2024-04-10] MEDS ORDERED: fentANYL 2 MCG/ML BUPIVacaine 0.125%-NSS 100ML BAG EPI PRN (16:48)
--- NOTE | 2024-04-10 16:51 | Anesthesiology Consultation ---
Date of Service April 10, 2024 Assessment & Plan Chart Review Chart Review: Acceptable Risk for Surgery and Patient NOT seen in Pre Admission Testing ASA ASA2 Proposed Anesthesia Anesthesia Type: Labor Epidural Risk / Benefits Reviewed With: PT / POA / Parent / Guardian, Accepts Plan and Informed Consent Obtained History Height/Weight Height: 5 ft 4 in Weight: 81.647 kg Allergies Allergy/AdvReac Type Severity Reaction Status Date / Time No Known Drug Allergies Allergy Verified 04/01/19 13:51 Medications Home Medications Medication Instructions Recorded Confirmed Last Taken ferrous sulfate 325 mg (65 mg 325 mg PO DAILY@08 #60 tabs 05/19/22 04/10/24 04/08/24 iron) tablet,delayed release vits no.124-ferrous fum 1 tab PO DAILY 04/10/24 04/10/24 04/09/24 27 mg iron-folic acid 800 mcg tablet ( Vitamin) Active Medications Generic Name Dose Route Start Last Admin Trade Name Freq PRN Reason Stop Dose Admin Sodium Chloride 1,000 mls @ 125 mls/hr 04/10/24 08:30 04/10/24 16:56 Nss IV 04/11/24 08:29 125 mls/hr .Q8H CHRISTA Infusion Oxytocin 30 units in 500 mls @ 9 mls/hr 04/10/24 13:32 04/10/24 16:10 Pitocin 30 Units/Nss IV 04/12/24 13:31 0.54 units/hr .Q24H PRN 9 mls/hr Labor Induction/Augmentation Titration Protocol 0.54 UNITS/HR Misoprostol 25 mcg 04/10/24 09:00 04/10/24 08:38 Misoprostol 25 Mcg Tab PO 05/10/24 08:59 25 mcg BID CHRISTA Administration Past Medical History Medical History History of varicella vaccination Exercise / Class Metabolic Activity II 4-5 Yardwork/Stairs/Walk up hill Past Family History Family History Mother , 04/2011 at age 49 Breast cancer, Onset Age: 42 negative BRCA genes Aunt Breast cancer maternal great aunt Grandmother (Maternal) Breast cancer maternal great grandmother Denies family history of Ovarian cancer Prostate cancer Myocardial infarction Colorectal cancer Past Surgical History Surgical History History of hysteroscopy H/O dilation and curettage [place] teeth removed History of hysterosalpingogram Past Anesthesia History No Hx of Anesthesia Complications and No Family Hx of Anesthesia Complications History of PONV No Hx of PONV and No Hx of Motion Sickness Social History Smoking Status: Never smoker Do You Dip or Chew Tobacco: No Hx Alcohol Use: Yes Hx Substance Use: No Review of Systems denies fever/cough/ colds/ chest pain/ SOB/ DAVIDA denies DAVIDA Physical Exam Vital Signs Last Vital Signs Temp 37.1 C 04/10/24 15:20 Pulse 89 04/10/24 17:19 BP 98/59 L 04/10/24 17:19 Pulse Ox 97 04/10/24 17:15 ENMT Mouth: no TMJ abnormality and no dentition abnormality Thyromental Distance: > or= 3.5 Finger Breadths Mallampati Class: II Neck neck extension not limited Respiratory normal respiratory effort; no respiratory distress Auscultation: lungs clear to auscultation bilaterally Cardiovascular Rate/Rhythm: regular rate and regular rhythm Neurologic moves all extremities Psychiatric Orientation: alert and oriented x 3 Testing Laboratory Results 04/10/24 08:34 Blood Type O Positive 04/10/24 08:34 Antibody Screen NEGATIVE 04/10/24 08:34
[2024-04-10] MEDS: fentANYL 2 MCG/ML BUPIVacaine 0.125%-NSS 100ML BAG ONE (17:12)
[2024-04-10] MEDS: LIDOCAINE 2%/EPINEPHRINE 1:200,000 20 ML PF ONE (17:20)
[2024-04-10] MEDS: BUPIVACAINE 0.25% PF 30 ML VIAL ONE (17:20)
[2024-04-10] MEDS: fentaNYL citrate PF 100 MCG/2 ML VIAL ONE (17:21)
[2024-04-10] MEDS: miSOPROStoL 200 MCG TAB PR ONE (22:07)
[2024-04-10] MEDS ORDERED: TRANEXAMIC ACID / 0.7% NACL 1,000 MG/100 ML BAG IV STA (22:23)
[2024-04-10] MEDS ORDERED: HYDROCORTISONE ACETATE 25 MG SUPP PR PRN (22:30)
[2024-04-10] MEDS ORDERED: BENZOCAINE 20% SPRY 85 APPLN/85 GM CAN EXT PRN (22:30)
--- NOTE | 2024-04-10 22:30 | Delivery Summary ---
Vaginal Delivery Summary Date of Service April 10, 2024 Vaginal Delivery Summary pt fully dilated and pushing, placed in dorsal lithotomy position, prepped and draped in usual fashion, pt pushed for few minutes , delivered alive viable male infant in THOMAS position with nuchal cord x1 around the neck, reduced, placed the infant on the mothers abdomen, bulb suctioned nose and mouth, cord clamped and cut by the FOB. placenta delivered spontaneously and complete. primary vaginal laceration noted , repaired with 2.0 Vicryl with one figure of eight stitch. pt had PPH with blood loss above 1500 cc. 1000 mg of rectal Cytotec given, 600 mg IV TXA given and 20 Hemabate as well. Total blood loss; 1535 cc Time of babys : 9: 59 PM Time placenta delivered: 10: 04 PM Total sponge /4 x 4 count correct
[2024-04-10] MEDS: CARBOPROST TROMETHAMINE 250 MCG/ML AMPUL IM ONE (22:35)
[2024-04-10] MEDS: ONDANSETRON INJ 2 MG/ML 2 ML VIAL IV PRN (23:13)
[2024-04-11] MEDS: ACETAMINOPHEN 325 MG TAB PO PRN (04:06)
[2024-04-11 07:20] LABS: Hematocrit (blood only) 25.8 % (37.0-47.0); Hemoglobin 8.5 g/dl (12.0-16.0); Mean Corpuscular Hemoglobin 27.5 pg (25.0-34.0); Mean Corpuscular Hgb Conc 32.9 g/dL (32.0-36.0); Mean Corpuscular Volume 83.5 fL (80.0-100.0); Mean Platelet Volume 12.3 fL (9.4-12.4); Platelet Count 138 K/uL (130-400); RDW Coefficient of Variation 14.3 % (11.5-14.5); RDW Standard Deviation 43.5 fL (36.4-46.3); Red Blood Count 3.09 M/uL (4.20-5.40); White Blood Count 8.31 K/ul (4.8-10.8)
--- NOTE | 2024-04-11 07:49 | Obstetrical Progress Note ---
Date of Service April 11, 2024 Assessment & Plan Admission and Anticipated Discharge Date Admission Date: April 10, 2024 Subjective abdomen soft and non tender ambulating well no calf tenderness vaginal bleeding scant hgb 8.5 Results & Data Vital Signs (Past 12 Hours) Vital Signs Temp Pulse Pulse Resp BP BP Pulse Ox 04/11/24 06:23 37.3 C 04/11/24 03:56 38 C H 90 18 111/73 95 04/11/24 01:50 37.5 C 82 16 111/73 99 04/11/24 01:11 98 H 103/62 04/11/24 00:56 89 103/59 L 04/11/24 00:41 86 98/57 L 04/11/24 00:30 36.7 C 04/11/24 00:26 86 110/59 L 04/11/24 00:11 101 H 111/69 04/10/24 23:56 105 H 04/10/24 23:56 105/56 L 04/10/24 23:41 108 H 04/10/24 23:41 110/58 L 04/10/24 23:26 109 H 04/10/24 23:26 117/56 L 04/10/24 23:11 105 H 04/10/24 23:11 117/60 04/10/24 22:56 103 H 04/10/24 22:56 117/62 04/10/24 22:50 94 04/10/24 22:50 101 H 04/10/24 22:50 94 04/10/24 22:50 97 H 04/10/24 22:45 97 04/10/24 22:45 97 H 04/10/24 22:45 93 04/10/24 22:45 109 H 04/10/24 22:41 104 H 04/10/24 22:41 114/63 04/10/24 22:40 97 04/10/24 22:40 112 H 04/10/24 22:35 98 04/10/24 22:35 110 H 04/10/24 22:30 99 04/10/24 22:30 113 H 04/10/24 22:30 89 L 04/10/24 22:30 118 H 04/10/24 22:26 118 H 04/10/24 22:26 104/54 L 04/10/24 22:25 95 04/10/24 22:25 116 H 04/10/24 22:23 91 04/10/24 22:23 139 H 04/10/24 22:20 96 04/10/24 22:20 118 H 04/10/24 22:15 100 04/10/24 22:15 127 H 04/10/24 22:15 113/54 L 04/10/24 22:10 100 04/10/24 22:10 132 H 04/10/24 22:05 98 04/10/24 22:05 119 H 04/10/24 22:00 98 04/10/24 22:00 114 H 04/10/24 21:59 87 L 04/10/24 21:59 136 H 04/10/24 21:55 93 04/10/24 21:55 142 H 04/10/24 21:50 99 04/10/24 21:50 106 H 04/10/24 21:46 91 04/10/24 21:46 102 H 04/10/24 21:45 99 04/10/24 21:45 98 H 04/10/24 21:43 100 H 04/10/24 21:43 129/66 04/10/24 21:40 94 04/10/24 21:40 87 04/10/24 21:35 100 04/10/24 21:35 74 04/10/24 21:30 100 04/10/24 21:30 68 04/10/24 21:26 78 04/10/24 21:26 125/80 04/10/24 21:25 98 04/10/24 21:25 82 04/10/24 21:25 90 04/10/24 21:25 84 04/10/24 21:20 98 04/10/24 21:20 72 04/10/24 21:15 97 04/10/24 21:15 70 04/10/24 21:11 71 04/10/24 21:11 113/71 04/10/24 21:10 98 04/10/24 21:10 73 04/10/24 21:06 18 04/10/24 21:06 36.8 C 18 04/10/24 21:05 97 04/10/24 21:05 76 04/10/24 21:01 93 04/10/24 21:01 101 H 04/10/24 21:00 95 04/10/24 21:00 94 H 04/10/24 20:56 88 04/10/24 20:56 114/71 04/10/24 20:55 95 04/10/24 20:55 85 04/10/24 20:50 99 04/10/24 20:50 73 04/10/24 20:45 95 04/10/24 20:45 86 04/10/24 20:41 83 04/10/24 20:41 109/70 04/10/24 20:40 95 04/10/24 20:40 79 04/10/24 20:35 96 04/10/24 20:35 74 04/10/24 20:30 95 04/10/24 20:30 76 04/10/24 20:26 80 04/10/24 20:26 108/65 04/10/24 20:25 96 04/10/24 20:25 73 04/10/24 20:20 95 04/10/24 20:20 81 04/10/24 20:15 96 04/10/24 20:15 85 04/10/24 20:11 74 04/10/24 20:11 106/65 04/10/24 20:10 97 04/10/24 20:10 77 04/10/24 20:05 97 04/10/24 20:05 80 04/10/24 20:00 97 04/10/24 20:00 79 04/10/24 19:57 75 04/10/24 19:57 111/67 04/10/24 19:55 99 04/10/24 19:55 79 04/10/24 19:52 91 04/10/24 19:52 75 04/10/24 19:50 99 04/10/24 19:50 80 O2 Del Method 04/11/24 06:23 04/11/24 03:56 Room Air 04/11/24 01:50 Room Air 04/11/24 01:11 04/11/24 00:56 04/11/24 00:41 04/11/24 00:30 04/11/24 00:26 04/11/24 00:11 04/10/24 23:56 04/10/24 23:56 04/10/24 23:41 04/10/24 23:41 04/10/24 23:26 04/10/24 23:26 04/10/24 23:11 04/10/24 23:11 04/10/24 22:56 04/10/24 22:56 04/10/24 22:50 04/10/24 22:50 04/10/24 22:50 04/10/24 22:50 04/10/24 22:45 04/10/24 22:45 04/10/24 22:45 04/10/24 22:45 04/10/24 22:41 04/10/24 22:41 04/10/24 22:40 04/10/24 22:40 04/10/24 22:35 04/10/24 22:35 04/10/24 22:30 04/10/24 22:30 04/10/24 22:30 04/10/24 22:30 04/10/24 22:26 04/10/24 22:26 04/10/24 22:25 04/10/24 22:25 04/10/24 22:23 04/10/24 22:23 04/10/24 22:20 04/10/24 22:20 04/10/24 22:15 04/10/24 22:15 04/10/24 22:15 04/10/24 22:10 04/10/24 22:10 04/10/24 22:05 04/10/24 22:05 04/10/24 22:00 04/10/24 22:00 04/10/24 21:59 04/10/24 21:59 04/10/24 21:55 04/10/24 21:55 04/10/24 21:50 04/10/24 21:50 04/10/24 21:46 04/10/24 21:46 04/10/24 21:45 04/10/24 21:45 04/10/24 21:43 04/10/24 21:43 04/10/24 21:40 04/10/24 21:40 04/10/24 21:35 04/10/24 21:35 04/10/24 21:30 04/10/24 21:30 04/10/24 21:26 04/10/24 21:26 04/10/24 21:25 04/10/24 21:25 04/10/24 21:25 04/10/24 21:25 04/10/24 21:20 04/10/24 21:20 04/10/24 21:15 04/10/24 21:15 04/10/24 21:11 04/10/24 21:11 04/10/24 21:10 04/10/24 21:10 04/10/24 21:06 04/10/24 21:06 04/10/24 21:05 04/10/24 21:05 04/10/24 21:01 04/10/24 21:01 04/10/24 21:00 04/10/24 21:00 04/10/24 20:56 04/10/24 20:56 04/10/24 20:55 04/10/24 20:55 04/10/24 20:50 04/10/24 20:50 04/10/24 20:45 04/10/24 20:45 04/10/24 20:41 04/10/24 20:41 04/10/24 20:40 04/10/24 20:40 04/10/24 20:35 04/10/24 20:35 04/10/24 20:30 04/10/24 20:30 04/10/24 20:26 04/10/24 20:26 04/10/24 20:25 04/10/24 20:25 04/10/24 20:20 04/10/24 20:20 04/10/24 20:15 04/10/24 20:15 04/10/24 20:11 04/10/24 20:11 04/10/24 20:10 04/10/24 20:10 04/10/24 20:05 04/10/24 20:05 04/10/24 20:00 04/10/24 20:00 04/10/24 19:57 04/10/24 19:57 04/10/24 19:55 04/10/24 19:55 04/10/24 19:52 04/10/24 19:52 04/10/24 19:50 04/10/24 19:50
--- NOTE | 2024-04-11 08:30 | Anesthesia Procedure Note ---
Date of Service April 11, 2024 Anesthesia Post Epidural Note Vital Signs Vital Signs: Temp Pulse Resp BP Pulse Ox O2 Del Method 37.3 C 90 18 111/73 95 Room Air 04/11/24 06:23 04/11/24 03:56 04/11/24 03:56 04/11/24 03:56 04/11/24 03:56 04/11/24 03:56 Pain Intensity Lower Medial Abdomen: Pain Intensity: 0 Notes Mental Status: alert / awake / arousable and participated in evaluation Nausea / Vomiting: adequately controlled Pain: adequately controlled Airway Patency, RR, SpO2: stable & adequate BP & HR: stable & adequate Hydration State: stable & adequate Neuraxial Anesthesia: was administered and sensory block is resolving Anesthetic Complications: no major complications apparent Epidural: Removed without complications and With tip intact
[2024-04-11] MEDS: PRENATAL VITAMIN 1 TAB PO SCH (09:09)
[2024-04-11] MEDS: DOCUSATE SODIUM 100 MG CAP PO SCH (09:09)
[2024-04-11] MEDS: DIPHTHER/TETAN/PERTUS Vaccine (Tdap, Adol/Adult) 0.5mL IM ONE (09:11)
[2024-04-11] MEDS: IBUPROFEN 600 MG TAB PO PRN (16:59)
[2024-04-11] MEDS: bisacodyL 5 MG TABEC PO SCH (21:01)
[2024-04-11 23:04] VITALS: RESP 16
[2024-04-12] MEDS ORDERED: bisacodyL 10 MG SUPP PR PRN
[2024-04-12 07:00] LABS: Hematocrit (blood only) 25.6 % (37.0-47.0); Hemoglobin 8.3 g/dl (12.0-16.0)
--- NOTE | 2024-04-12 07:32 | Obstetrical Progress Note ---
Date of Service April 12, 2024 Assessment & Plan Admission and Anticipated Discharge Date Admission Date: April 10, 2024 Subjective abdomen soft and non tender no calf tenderness ambulating well vaginal bleeding scant hgb 8.3 Results & Data Vital Signs (Past 12 Hours) Vital Signs Temp Pulse Resp BP Pulse Ox O2 Del Method 04/12/24 03:30 36.4 C L 65 16 106/67 97 Room Air 04/11/24 23:03 36.5 C 60 16 99/60 L 98 Room Air 04/11/24 21:00 36.5 C 69 18 108/70 98 Room Air
[2024-04-12 07:39] VITALS: BP 99/62; PULSE 63; TEMP 97.7; O2SAT 98
== END 2024-04-12 11:47 | disposition home or self-care (01) | DRG 807 ==
LOC: 4S1 07:43 → 4E2 04-11 01:46